=== PATIENT | female | born 1945 | race Caucasian/White ===

== ENCOUNTER → 2016-08-14 | Outpatient (REF) | payer MEDICARE, OTHER ==
[~2016-08-14] MED LIST: /ATOR40TA OR; /GLYB5TA OR; /TIOT18INH INH; ACET65TA OR; ACTO30TA OR; ALTA10CA OR; ASPI325T OR; CLAR5CHW OR; DUONSOL IN; FERR325T OR; FURO40TA2 OR; FURO80TA2 OR; GLYB2.5T6 OR; GREEN TEA PO; KLOR10TA OR; LEVA500T OR; LIPI80TA OR; LOPR50TA OR; MULTIVIT PO; PLAV75TA2 OR; PRED10TA2 OR; PRED20TA OR; SERT50TA2 OR; [UNRECOGNIZED DRUG - CODE] EXT; januvia PO; restful legs SL
[2016-08-14 18:32] LABS: ALBUMIN 3.4 GM/DL (3.2-5.2); ALBUMIN/GLOBULIN RATIO 1.06 (1.00-1.93); BILIRUBIN,TOTAL 0.2 MG/DL (0.2-1.0); CALCIUM LEVEL 8.8 MG/DL (8.8-10.2); CREATININE FOR GFR 1.58 MG/DL (0.55-1.02); GLOMERULAR FILTRATION RATE 34.1 (>39); POTASSIUM SERUM 4.3 MEQ/L (3.5-5.1); TOTAL PROTEIN 6.6 GM/DL (6.4-8.2)
== END ==
LOC: M SFHCCLAY 10:26
PROVIDERS: ATTEND Family Medicine
DX: E11.9 Type 2 diabetes mellitus without complications (principal)
CPT/HCPCS: 80053; 83036; 90670; G0009; G0463

== ENCOUNTER → 2016-11-09 | Outpatient (CLI) | payer MEDICARE, BC ==
--- NOTE | 2016-11-09 11:30 | REPMRS ---
Patient History The patient states she has not had a clinical breast exam in over a year. Patient is postmenopausal and has history of colorectal cancer at age 56. Family history of colorectal cancer in sister at age 50 or over and colorectal cancer in mother at age 50 or over. Digital Woman Screen Mammo: November 09, 2016 - Exam #: [id number] Bilateral CC and MLO view(s) were taken. Technologist: Anum Nassar, Technologist Prior study comparison: November 08, 2015, digital woman screen mammo performed at [facility] to [facility]. October 10, 2014, digital woman screen mammo performed at [facility] to [facility]. FINDINGS: There are scattered fibroglandular densities. There has been no change in the appearance of the mammogram from the prior studies. There is a mild amount of residual fibroglandular tissue which is fairly symmetric. There is no interval development of dominant mass, architectural distortion, or clustered microcalcification suggestive of malignancy. ASSESSMENT: BI-RADS/ACR category 1 mammogram. Negative. Recommendation Routine screening mammogram in 1 year (for women over age 40). This mammogram was interpreted with the aid of an FDA-approved computer-aided dectection system. Electronically Signed By: Víctor Rios MD 11/09/16 [id number]
== END ==
LOC: M WHC 09:51
PROVIDERS: ATTEND Family Medicine
DX: Z12.31 Encounter for screening mammogram for malignant neoplasm of breast (principal)

== ENCOUNTER → 2017-03-02 | Outpatient (REF) | payer MEDICARE, OTHER ==
[2017-03-02 18:04] LABS: ALBUMIN 3.1 GM/DL (3.2-5.2); ALBUMIN/GLOBULIN RATIO 0.79 (1.00-1.93); BILIRUBIN,TOTAL 0.2 MG/DL (0.2-1.0); CALCIUM LEVEL 9.1 MG/DL (8.8-10.2); CREATININE FOR GFR 1.92 MG/DL (0.55-1.02); GLOMERULAR FILTRATION RATE 27.2 (>39); POTASSIUM SERUM 4.1 MEQ/L (3.5-5.1)
[2017-03-02 19:02] LABS: BASO # 0.1 10^3/uL (0.0-0.2); BASO % 0.7 % (0.0-1.0); EOS # 0.1 10^3/uL (0.0-0.50); EOS % 1.1 % (0.0-3.0); IMMATURE GRANULOCYTE % 0.4 % (0-0); LYMPH # 1.7 10^3/uL (1.5-4.5); MEAN CORPUSCULAR HEMOGLOBIN 30.1 pg (27.0-33.0); MEAN CORPUSCULAR HGB CONC 29.1 g/dl (32.0-36.5); MEAN CORPUSCULAR VOLUME 103.5 fl (80.0-96.0); MONO # 1.1 10^3/uL (0.0-0.8); MONO % 10.6 % (0.0-5.0); NEUTROPHILS # 7.6 10^3/uL (1.8-7.7); NEUTROPHILS % 71.2 % (36.0-66.0); PLATELET COUNT, AUTOMATED 240 10^3/uL (150-450); RED CELL DISTRIBUTION WIDTH 14.7 % (11.5-14.5); WHITE BLOOD COUNT 10.7 10^3/uL (4.0-10.0)
== END ==
LOC: M SFHCCLAY 13:18
PROVIDERS: ATTEND Family Medicine
DX: E11.9 Type 2 diabetes mellitus without complications (principal); D64.9 Anemia, unspecified; Z23 Encounter for immunization
CPT/HCPCS: 80053; 80061; 83036; 83540; 85025; 90662; G0008; G0463

== ENCOUNTER → 2017-07-09 | Outpatient (REF) | payer MEDICARE, OTHER ==
[2017-07-09 16:51] LABS: BASO # 0.1 10^3/uL (0.0-0.2); BASO % 0.8 % (0.0-1.0); EOS # 0.2 10^3/uL (0.0-0.50); EOS % 1.8 % (0.0-3.0); HEMATOCRIT 31.4 % (36.0-47.0); HEMOGLOBIN 9.4 g/dl (12.0-15.5); IMMATURE GRANULOCYTE % 0.3 % (0-3.0); LYMPH # 1.1 10^3/uL (1.5-4.5); LYMPH % 11.6 % (24.0-44.0); MEAN CORPUSCULAR HEMOGLOBIN 32.2 pg (27.0-33.0); MEAN CORPUSCULAR HGB CONC 29.9 g/dl (32.0-36.5); MEAN CORPUSCULAR VOLUME 107.5 fl (80.0-96.0); MONO # 0.8 10^3/uL (0.0-0.8); MONO % 8.6 % (0.0-5.0); NEUTROPHILS % 76.9 % (36.0-66.0); PLATELET COUNT, AUTOMATED 211 10^3/uL (150-450); RED BLOOD COUNT 2.92 10^6/uL (4.00-5.40); RED CELL DISTRIBUTION WIDTH 13.9 % (11.5-14.5); WHITE BLOOD COUNT 9.1 10^3/uL (4.0-10.0)
[2017-07-09 17:16] LABS: ANION GAP 5 MEQ/L (8-16); BLOOD UREA NITROGEN 35 MG/DL (7-18); CALCIUM LEVEL 8.9 MG/DL (8.8-10.2); CARBON DIOXIDE LEVEL 35 MEQ/L (21-32); CHLORIDE LEVEL 106 MEQ/L (98-107); GLOMERULAR FILTRATION RATE 25.9 (>39); GLUCOSE, FASTING 218 MG/DL (70-100); IRON (FE) 59 UG/DL (50-170); POTASSIUM SERUM 4.6 MEQ/L (3.5-5.1); SODIUM LEVEL 146 MEQ/L (136-145)
[2017-07-09 17:40] LABS: ESTIMATED AVERAGE GLUCOSE 85 MG/DL (60-110); HEMOGLOBIN A1c 4.6 %
== END ==
LOC: M SFHCCLAY 10:14
DX: E11.22 Type 2 diabetes mellitus with diabetic chronic kidney disease (principal); N18.3 Chronic kidney disease, stage 3 (moderate); D64.9 Anemia, unspecified
CPT/HCPCS: 83540

== ENCOUNTER → 2017-08-16 | Outpatient (REF) | payer MEDICARE, OTHER ==
[2017-08-16 14:34] LABS: FERRITIN 26 NG/ML (8-252); IRON (FE) 66 UG/DL (50-170); PERCENT SATURATION 18.2 % (13.2-45.0); TOTAL IRON BINDING CAPACITY 362 UG/DL (250-450)
== END ==
LOC: M LAB REF 13:17
DX: N18.9 Chronic kidney disease, unspecified (principal); D63.1 Anemia in chronic kidney disease
CPT/HCPCS: 83550

== ENCOUNTER → 2017-10-07 | Outpatient (REF) | payer MEDICARE, OTHER ==
[2017-10-07 11:57] LABS: ANION GAP 6 MEQ/L (8-16); BLOOD UREA NITROGEN 27 MG/DL (7-18); CALCIUM LEVEL 8.7 MG/DL (8.8-10.2); CARBON DIOXIDE LEVEL 38 MEQ/L (21-32); CHLORIDE LEVEL 101 MEQ/L (98-107); CREATININE FOR GFR 1.89 MG/DL (0.55-1.30); GLOMERULAR FILTRATION RATE 27.7 (>39); GLUCOSE, FASTING 83 MG/DL (70-100); POTASSIUM SERUM 4.2 MEQ/L (3.5-5.1); SODIUM LEVEL 145 MEQ/L (136-145)
[2017-10-07 12:57] LABS: ESTIMATED AVERAGE GLUCOSE 97 MG/DL (60-110)
== END ==
LOC: M SFHCCLAY 09:07
DX: E11.9 Type 2 diabetes mellitus without complications (principal)
CPT/HCPCS: 83036

== ENCOUNTER → 2017-11-01 | Outpatient (REF) | payer MEDICARE, OTHER ==
[2017-11-01 19:04] LABS: CREATININE,RANDOM URINE 50.1 MG/DL
[2017-11-01 19:04] LABS: TOTAL PROTEIN,RANDOM URINE 12.1 MG/DL (0.0-12.0)
[2017-11-02 14:26] LABS: FERRITIN 23 NG/ML (8-252); IRON (FE) 58 UG/DL (50-170); PERCENT SATURATION 14.8 % (13.2-45.0); TOTAL IRON BINDING CAPACITY 392 UG/DL (250-450)
== END ==
LOC: M LAB REF 17:04
DX: N18.4 Chronic kidney disease, stage 4 (severe) (principal)
CPT/HCPCS: 83550

== ENCOUNTER → 2017-11-10 | Outpatient (CLI) | payer MEDICARE, BC | LOC: M WHC 12:51 | DX: Z12.31 Encounter for screening mammogram for malignant neoplasm of breast (principal); Z78.0 Asymptomatic menopausal state | CPT/HCPCS: 77067 ==

== ENCOUNTER 2017-11-23 09:04 | Outpatient (CLI) | payer MEDICARE, BC ==
[2017-11-23] MEDS: IRON SUCROSE 25 MG in NS 50 ML IV (09:58)
[2017-11-23] MEDS: IRON SUCROSE 275 MG in NS 250 ML IV (10:00)
== END 2017-11-23 14:30 | disposition home or self-care (01) ==
LOC: M INFU 09:04
DX: D50.9 Iron deficiency anemia, unspecified (principal); Z88.1 Allergy status to other antibiotic agents; Z88.8 Allergy status to other drugs, medicaments and biological substances; Z88.0 Allergy status to penicillin; Z79.82 Long term (current) use of aspirin; Z79.899 Other long term (current) drug therapy; Z79.52 Long term (current) use of systemic steroids; Z79.84 Long term (current) use of oral hypoglycemic drugs
CPT/HCPCS: J1756

== ENCOUNTER → 2018-02-15 | Outpatient (REF) | payer MEDICARE, OTHER ==
[2018-02-16 11:49] LABS: BASO # 0.1 10^3/uL (0.0-0.2); BASO % 0.6 % (0.0-1.0); EOS # 0.1 10^3/uL (0.0-0.50); EOS % 1.2 % (0.0-3.0); HEMATOCRIT 30.6 % (36.0-47.0); HEMOGLOBIN 9.2 g/dl (12.0-15.5); IMMATURE GRANULOCYTE % 0.4 % (0-3.0); LYMPH # 1.5 10^3/uL (1.5-4.5); LYMPH % 18.5 % (24.0-44.0); MEAN CORPUSCULAR HEMOGLOBIN 32.3 pg (27.0-33.0); MEAN CORPUSCULAR HGB CONC 30.1 g/dl (32.0-36.5); MEAN CORPUSCULAR VOLUME 107.4 fl (80.0-96.0); MONO % 12.4 % (0.0-5.0); NEUTROPHILS # 5.5 10^3/uL (1.8-7.7); NEUTROPHILS % 66.9 % (36.0-66.0); PLATELET COUNT, AUTOMATED 198 10^3/uL (150-450); RED BLOOD COUNT 2.85 10^6/uL (4.00-5.40); RED CELL DISTRIBUTION WIDTH 13.3 % (11.5-14.5); WHITE BLOOD COUNT 8.2 10^3/uL (4.0-10.0)
[2018-02-16 12:11] LABS: ALBUMIN 3.2 GM/DL (3.2-5.2); ALBUMIN/GLOBULIN RATIO 0.97 (1.00-1.93); ALKALINE PHOSPHATASE 101 U/L (45-117); ALT/SGPT 32 U/L (12-78); ANION GAP 5 MEQ/L (8-16); AST/SGOT 32 U/L (7-37); BILIRUBIN,TOTAL 0.2 MG/DL (0.2-1.0); BLOOD UREA NITROGEN 30 MG/DL (7-18); CALCIUM LEVEL 8.9 MG/DL (8.8-10.2); CARBON DIOXIDE LEVEL 33 MEQ/L (21-32); CHLORIDE LEVEL 106 MEQ/L (98-107); CHOLESTEROL LEVEL 179 MG/DL (<200); CHOLESTEROL RISK RATIO 4.068 (<5); GLUCOSE, FASTING 81 MG/DL (70-100); HDL CHOLESTEROL 44 MG/DL (>40); IRON (FE) 52 UG/DL (50-170); LDL CHOLESTEROL 86 MG/DL (<100); NON-HDL-C 135 MG/DL; POTASSIUM SERUM 4.8 MEQ/L (3.5-5.1); SODIUM LEVEL 144 MEQ/L (136-145); TOTAL PROTEIN 6.5 GM/DL (6.4-8.2); TRIGLYCERIDES LEVEL 246 MG/DL (<150)
[2018-02-16 12:34] LABS: ESTIMATED AVERAGE GLUCOSE 105 MG/DL (60-110); HEMOGLOBIN A1c 5.3 %
== END ==
LOC: M SFHCCLAY 15:24
DX: E11.9 Type 2 diabetes mellitus without complications (principal); N18.3 Chronic kidney disease, stage 3 (moderate); D64.9 Anemia, unspecified; Z23 Encounter for immunization
CPT/HCPCS: 83540

== ENCOUNTER → 2018-03-08 | Outpatient (REF) | payer MEDICARE, OTHER ==
[2018-03-08 19:19] LABS: FERRITIN 13 NG/ML (8-252); IRON (FE) 64 UG/DL (50-170); PERCENT SATURATION 16.2 % (13.2-45.0); TOTAL IRON BINDING CAPACITY 395 UG/DL (250-450)
== END ==
LOC: M LAB REF 18:04
DX: N18.9 Chronic kidney disease, unspecified (principal); D63.1 Anemia in chronic kidney disease
CPT/HCPCS: 83550

== ENCOUNTER → 2018-06-14 | Outpatient (REF) | payer MEDICARE, OTHER ==
[~2018-06-14] MED LIST changes: -/ATOR40TA OR; -/GLYB5TA OR; -/TIOT18INH INH; +ADVA230A INH; +AMLO5TAB6 PO; +ASPI-1 PO; +ASPI1TAB20 PO; +ATOR80TA59 PO; +FERR1TAB8 PO; +GLIM4TAB PO; +GLYB1TAB29 OR; +JANU25TA PO; +LASI80TA3 PO; +LIPI1TAB2 OR; +LORA-243 PO; +METO50TA7 PO; +PANT40TA3 PO; +SERO1TAB3 PO; +SERT-138 PO; +SPIR1CAP INH; +TYLE650T35 PO; +VENL75CA47 PO; +VITMTA PO
[2018-06-15 12:11] LABS: CALCIUM LEVEL 8.6 MG/DL (8.8-10.2); CREATININE FOR GFR 1.96 MG/DL (0.55-1.30); GLOMERULAR FILTRATION RATE 26.5 (>39); POTASSIUM SERUM 5.6 MEQ/L (3.5-5.1)
== END ==
LOC: EDBD → M SFHCCLAY 16:11
PROVIDERS: ATTEND Family Medicine
DX: E11.9 Type 2 diabetes mellitus without complications (principal)
CPT/HCPCS: 36415; 80048; G0463

== ENCOUNTER 2018-07-08 13:44 | Inpatient (IN) | payer MEDICARE, BC, OTHER ==
[~2018-07-08] VITALS: Ht 157.5 cm; Wt 84.2 kg
[2018-07-08] VITALS (7 sets, daily range): BP systolic 90–117; BP diastolic 52–70; O2SAT 88–89
[~2018-07-08 13:44] MED LIST changes: -ADVA230A INH; -AMLO5TAB6 PO; -ASPI-1 PO; -ASPI1TAB20 PO; -ATOR80TA59 PO; -FERR1TAB8 PO; -GLIM4TAB PO; -JANU25TA PO; -LASI80TA3 PO; -LORA-243 PO; -METO50TA7 PO; -PANT40TA3 PO; -SERO1TAB3 PO; -SERT-138 PO; -TYLE650T35 PO; -VENL75CA47 PO; -VITMTA PO
[2018-07-08] MEDS ORDERED: ACETAMINOPHEN TAB 650MG DOSE (2X325MG) PO PRN (16:45)
[2018-07-08] MEDS ORDERED: LORA-243 PO (17:08)
[2018-07-08] MEDS ORDERED: GLIM4TAB PO (17:08)
[2018-07-08] MEDS ORDERED: VITMTA PO (17:08)
[2018-07-08] MEDS ORDERED: METO50TA7 PO (17:08)
[2018-07-08] MEDS ORDERED: LASI80TA3 PO (17:08)
[2018-07-08] MEDS ORDERED: ADVA230A INH (17:08)
[2018-07-08] MEDS ORDERED: SERT-138 PO (17:08)
[2018-07-08] MEDS ORDERED: JANU25TA PO (17:08)
[2018-07-08] MEDS ORDERED: SPIR1CAP INH (17:08)
[2018-07-08] MEDS ORDERED: TYLE650T35 PO (17:08)
[2018-07-08] MEDS ORDERED: FERR1TAB8 PO (17:08)
[2018-07-08] MEDS ORDERED: ATOR80TA59 PO (17:08)
[2018-07-08] MEDS ORDERED: ASPI-1 PO (17:08)
[2018-07-08] MEDS ORDERED: ASPI1TAB20 PO (17:08)
[2018-07-08] MEDS ORDERED: VENL75CA47 PO (17:09)
[2018-07-08 17:14] LABS: HEMATOCRIT 27.9 % (36.0-47.0); MEAN CORPUSCULAR HEMOGLOBIN 29.3 pg (27.0-33.0); MEAN CORPUSCULAR HGB CONC 28.7 g/dl (32.0-36.5); MEAN CORPUSCULAR VOLUME 102.2 fl (80.0-96.0); PLATELET COUNT, AUTOMATED 176 10^3/uL (150-450); RED BLOOD COUNT 2.73 10^6/uL (4.00-5.40); WHITE BLOOD COUNT 5.8 10^3/uL (4.0-10.0)
[2018-07-08] MEDS ORDERED: SERO1TAB3 PO (17:18)
[2018-07-08] MEDS ORDERED: PANT40TA3 PO (17:18)
[2018-07-08] MEDS ORDERED: AMLO5TAB6 PO (17:18)
[2018-07-08 17:36] LABS: ALBUMIN 2.7 GM/DL (3.2-5.2); BILIRUBIN,TOTAL 0.4 MG/DL (0.2-1.0); CALCIUM LEVEL 9.4 MG/DL (8.8-10.2); CREATININE FOR GFR 1.22 MG/DL (0.55-1.30); GLOMERULAR FILTRATION RATE 45.7 (>39); POTASSIUM SERUM 4.6 MEQ/L (3.5-5.1); TOTAL PROTEIN 6.2 GM/DL (6.4-8.2)
--- NOTE | 2018-07-08 18:01 | HPEPDOC ---
[facility] Medical History & Physical Date of Admission Jul 08, 2018 History and Physical CHIEF COMPLAINT: [ACUTE ON CHRONIC HYPOXIC AND HYPERCAPNIC RESP FAILURE ] HISTORY OF PRESENT ILLNESS: This is 89 yo female who was transferred from [facility] on BIPAP for acute on chronic hypoxic and hypercapnic resp failure. Hospital prior to being transferred - Patient was initially admitted to [facility] on 06/18-06/27 for symptomatic anemia with hgb of 4.9. She was transfused 2 units of prbc. She underwent EGD and colonoscopy and was found to have atrophic gastritis and multiple polyps which were removed. She improved clinically and was admitted at [place] for [facility] on 06/27/18. She again had symptomatic anemia and her Hgb dropped from 10.4-8.3 and she was having black tarry stool. She was sent back to [facility] where she again underwent egd and colonoscopy and another polyp was found and excised on 07/04/18. She had marybeth and potassium imbalances which were corrected accordingly. She was discharged to discharged to [facility] and while there staff had difficulty obtaining an O2 sat, she was lethargic and an ABG was performed and resulted as ph 7.26/pco2 96.4/PAo2 75. Patient was placed on BIPAP and at 12/6 and fio2 of 40%, and BP dropped to 90/51. Given developing complications, patient was transferred to [facility] for further mgt. ROS - all 14 point review of system is negative except for whats listed in HPI PAST MEDICAL HISTORY: CANDIDO 2/2 chronic blood loss recent GIB multiple polyps s/p polypectomy COPD with chronic hypoxemia on 4L nc at home DM2 colon ca s/p resection over 10yrs ago HTN HLD CAD LINDSAY on CPAP but noncompliant ckd obesity atrophic gastritis allergic rhinnitis depression and anxiety Heart murmur scarlet fever RH fever TB s/p treatment chronic headaches PAST SURGICAL HISTORY: EGD colonscopy colon resection cholecystectomy appendectomy umbilical hernia repair b/l cataract surgery SOCIAL HISTORY: Patient is a and lives alone 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 quit 12yrs ago denied etoh or elicit drug use FAMILY HISTORY: mother at age 68yrs from colon ca, also had copd father in his 60s from MVA, also had copd one sister in her 50s from colon cancer one sister from CAD , also had copd ALLERGIES: Please see below. HOME MEDICATIONS: Please see below. Physical exam Gen: NAD, healthy appearing , on bipap HEENT: normocephalic, atraumatic, no discharge from ears or nose, no oropharyngeal erythema or exudate, neck is supple, no lymphadenopathy, trachea midline CVS: RRR, normal S1n S2, no murmur, rubs, or gallops, no edema, no jvd Resp: LCTAB, no rhonchi, wheezes or crackles, poor air movement Abd : soft nontender, normal bowel sounds, no rebound tenderness or guarding MSK: no swelling, full range of motion, strength 5/5 Neuro: AOAx3- poor memory, no confusion, no focal deficit Psych: normal mood and affect, good judgment LABORATORY DATA: See below. some pending IMAGING: cxr pending MICROBIOLOGY: Please see below. ASSESSMENT AND PLAN Acute on chronic hypoxic and hypercapnic resp failure COPD with chronic hypoxemia on 4L nc at home Admit to ICU BIPAP per pulm keep O2 sat between 88-92% serial abg Pulm consult ordered lab results coming in f/u cxr CANDIDO 2/2 GIB monitor H and H q12h monitor stool for bleed transfuse if patient is bleeding and symptomatic or hgb becomes <7 f/u anemia w/u type and screen ordered DM2 last hba1c was 5.4 % monitor f/s ISS hypoglycemic protocol HTN hold bp meds for now and monitor HLD c/w statin atrophic gastritis -PPI -protonix 40mg bid CAD - stable no complaint monitor off aspirin for now depression and anxiety not in depressed mood. very pleasant not suicidal c/w meds DVT ppx - scd Full code, has HCP dispo- pending clinical improvement Home Medications Scheduled Amlodipine Besylate (Amlodipine Besylate) 5 Mg Tab, 5 MG PO DAILY STARTED AT [facility] Aspirin (Aspirin) 325 Mg Tab, 162.5 MG PO DAILY Atorvastatin Calcium (Atorvastatin Calcium) 80 Mg Tab, 80 MG PO DAILY Ferrous Sulfate (Ferrous Sulfate) 325 Mg Tab, 162.5 MG PO DAILY Furosemide (Lasix) 80 Mg Tab, 80 MG PO DAILY Loratadine (Loratadine) 10 Mg Tab, 10 MG PO DAILY Metoprolol Tartrate (Metoprolol Tartrate) 50 Mg Tab, 50 MG PO BID Multivitamins *[facility] STOCKED* (Thera M Plus *[facility] STOCKED*) 1 Tab Tab, 1 TAB PO DAILY Pantoprazole Sodium (Pantoprazole Sodium) 40 Mg Tab, 40 MG PO BID STARTED AT [facility] Quetiapine Fumerate (Seroquel) 25 Mg Tab, 25 MG PO BID STARTED AT [facility] Salmeterol/Fluticasone (Advair Hfa 230-21 Mcg/Act) 1 Aer Aer, 2 PUFF INH BID Sertraline HCl (Sertraline HCl) 100 Mg Tab, 100 MG PO DAILY Sitagliptin Phosphate (Januvia) 25 Mg Tab, 25 MG PO DAILY Tiotropium [place] Monohydrate (Spiriva Handihaler) 18 Mcg Cap, 1 INHALATION INH DAILY Venlafaxine HCl (Venlafaxine HCl ER) 75 Mg Capcr, 75 MG PO DAILY Scheduled PRN Acetaminophen (Tylenol 8 Hour Arthritis) 650 Mg Tab, 650 MG PO Q8H PRN for PAIN Allergies Coded Allergies: Penicillins (Unverified Allergy, Unknown, SWELLING, 07/08/18) erythromycin base (Unverified Allergy, Unknown, 07/08/18) metformin (Unverified Allergy, Unknown, 07/08/18) QUINTIN HERNANDEZ MD Jul 08, 2018 17:43
[2018-07-08 18:09] LABS: ABG BASE EXCESS 11.7 (-2.0-2.0); ABG HCO3 38.8 MEQ/L (22.0-26.0); ABG O2 SATURATION 93.5 % (95.0-99.0); ABG PARTIAL PRESSURE O2 66.8 mmHg (75.0-100.0); ABG STANDARD HCO3 35.4 MEQ/L (22.0-26.0); ABG TOTAL CO2 40.9 MEQ/L (23.0-31.0); ABG pH (ARTERIAL) 7.372 UNITS (7.350-7.450)
[2018-07-08 18:10] LABS: ABG PARTIAL PRESSURE CO2 68.4 mmHg (35.0-45.0)
--- NOTE | 2018-07-08 18:13 | REP ---
Clinical: Hypoxia. Technique: Portable semiupright AP chest. Comparison: 11/06/2016. Findings: Minimal bibasilar atelectasis and left lower lobe/retrocardiac consolidation appreciated. No definite effusion. No pneumothorax. Cardiac silhouette is normal. Skeletal structures intact. Impression: Left lower lobe consolidation and basilar atelectasis. Electronically Signed by Kenneth Davis MD 07/08/2018 06:05 P
[2018-07-08 18:44] LABS: FERRITIN 49 NG/ML (8-252); IRON (FE) 46 UG/DL (50-170); PERCENT SATURATION 14.2 % (13.2-45.0); TOTAL IRON BINDING CAPACITY 324 UG/DL (250-450)
[2018-07-08] MEDS ORDERED: FUROSEMIDE 20 MG/2 ML VIAL (J1940) IV ONE (18:45)
[2018-07-08] MEDS ORDERED: LevoFLOXacin IV 500 MG in APPROPRIATE DILUENT 1 EA IV ONE (18:45)
[2018-07-08 18:51] LABS: FOLATE 21.1 NG/ML (>5.4); VITAMIN B12 LEVEL 559 PG/ML (247-911)
[2018-07-08 19:19] LABS: CPK CREATINE PHOSPHOKINASE 20 U/L (26-192); NT-PRO BNP 1594 PG/ML (<450); TROPONIN I < 0.02 NG/ML (< 0.10)
--- NOTE | 2018-07-08 20:01 | REP ---
Clinical: Bilateral lower extremity edema . Technique: Rios scale and color Doppler evaluation using linear high frequency transducer. Findings: Ultrasound examination of the right and left lower extremity deep venous structures from the common femoral vein to the popliteal vein demonstrates normal compressibility flow and wave patterns in response to respiration and augmentation. There is no evidence for deep venous thrombosis. Impression: No evidence for deep venous thrombosis. Electronically Signed by Kenneth Davis MD 07/08/2018 07:52 P
--- NOTE | 2018-07-08 20:27 | CR ---
DATE OF CONSULTATION: 07/08/2018 CRITICAL CARE CONSULT The patient is a 73-year-old female with a past medical history of chronic obstructive pulmonary disease (COPD), obstructive sleep apnea (LINDSAY), noncompliant at home with continuous positive airway pressure (CPAP), history of chronic hypoxemic respiratory failure - on nasal cannula oxygen 3-4 liters per minute, history of diabetes, history of congestive heart failure (CHF), reportedly diastolic CHF, hypertension, hyperlipidemia, depression, chronic kidney disease, recent history of gastrointestinal (GI) bleed, who presented with shortness of breath and lethargy. The patient had initially been hospitalized in [facility] with an acute GI bleed in the middle of June. Her hemoglobin on admission was 4.9. At that time, she had been symptomatic with her anemia with shortness of breath and dizziness. She received four units of packed red blood cells then. She had esophagogastroduodenoscopy (EGD) and colonoscopy, was noted to have atrophic gastritis as well as multiple colon polyps which were excised. She improved and was discharged to [facility] for subacute rehab. While there she had noted to have decreasing hemoglobin as well as some black tarry stools. She had also felt more fatigued and short of breath. She was given additional IV fluids for some acute kidney injury (MENG) and hyperkalemia. The patient was readmitted on 07/04/2018 for a recurrent GI bleed. She had a repeat colonoscopy and removal of two more polyps, as well as with an additional PRBC transfusion. During all of this, patient had reported increasing shortness of breath as well as some increasing lower extremity edema. She had no further bleeding and her hemoglobin had improved, and she was transferred back to [facility] on 07/07/2018. While there, she had continued to report some shortness of breath and was noted to be more lethargic. The patient also was noted to be more confused at times from previous. She had an ABG done there which showed evidence of acute on chronic hypercarbic respiratory failure. She was started on bilevel positive airway pressure (BiPAP) at [facility] and transferred to [facility] for further evaluation. She had also noted to have an episode of hypotension and was given additional IV fluids at that time. Her hemoglobin, however, has remained stable on repeat labs. Here in the intensive care unit (ICU), patient reports her breathing has significantly improved. She denies having any significant cough. No chest pain. She denies any increasing wheezing. She does note some increased shortness of breath; however, this has improved since being on BiPAP. She does report a history of chronic lower extremity edema, which she feels has worsened in the past few days. She denies any fevers or chills. No abdominal pain. No nausea or vomiting. PAST MEDICAL HISTORY: Recent GI bleed. History of colon cancer - status post partial resection more than 10 years ago. History of COPD with chronic hypoxemic respiratory failure - on nasal cannula oxygen supplementation. History of chronic hypercarbic respiratory failure. Obstructive sleep apnea (LINDSAY), noncompliant with CPAP. Chronic kidney disease. Diabetes. Coronary artery disease. Congestive heart failure with diastolic dysfunction. Hypertension. Hyperlipidemia. Depression. History of rheumatic fever. Scarlet fever. History of tuberculosis (TB), status post treatment. PAST SURGICAL HISTORY: Tonsillectomy. Cholecystectomy. Multiple colonoscopies. Partial colon resection. Appendectomy. Umbilical hernia repair. Bilateral cataract surgery. FAMILY HISTORY: Mother with a history of colon cancer and COPD. Father with a history of COPD. Sister with a history of colon cancer and another sister with a history of CAD. SOCIAL HISTORY: The patient is a former smoker of approximately two packs a day for more than 50 years, had quit approximately 12 years ago. 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 ALLERGIES: To PENICILLIN, ERYTHROMYCIN and METFORMIN. HOME MEDICATIONS: - Januvia - amlodipine - atorvastatin - iron sulfate - loratadine - multivitamin - sertraline - Spiriva - Advair - venlafaxine - Xopenex as needed - metoprolol - pantoprazole - Seroquel - Tylenol - Maalox as needed PHYSICAL EXAMINATION: Vital signs: Temperature afebrile, pulse 93, respiratory rate 23, blood pressure 97/70, oxygen saturation of 93% on 4 liters nasal cannula oxygen. General: The patient is an obese female lying in bed in no apparent distress, is able to speak in complete sentences and answering appropriately. HEENT: Normocephalic, atraumatic. No palpable adenopathy. Trachea is midline. Her oral mucous membranes are dry. Cardiovascular: She is regular rate and rhythm. Normal S1, S2, faint murmur auscultated. Pulmonary: Diminished breath sounds bilaterally with some crackles at the bases. No rhonchi or wheezing noted. Abdomen: Obese, soft, nontender, nondistended. Unable to appreciate any hepatosplenomegaly due to body habitus. Extremities: There is+1 pitting edema in the bilateral lower extremities. LABORATORY DATA: WBC is 5.8, hemoglobin is 8.0, platelet 176. Chemistry: Sodium is 145, potassium 4.6, chloride 105, bicarbonate 38, BUN 24, creatinine 1.22, glucose is 126, AST, ALT normal, albumin 2.7. ABG repeat showed a pH of 7.372, pCO2 of 68.4, pO2 of 66.8; this is on 35% FiO2 on BiPAP. IMAGING: Chest x-ray showed some increased pulmonary vascular congestion with some atelectasis at the bases and a possible left retrocardiac infiltrate versus atelectasis. ASSESSMENT/PLAN: Mrs. Rios is a 73-year-old female with a past medical history of LINDSAY, COPD with chronic hypoxemic and hypercapnic respiratory failure - on 3 to 4 liters nasal cannula oxygen supplementation, chronic kidney disease, diabetes, depression, hypertension, coronary artery disease, CHF, recent GI bleed, status post colonoscopies, EGD with polypectomy, who is here with increasing shortness of breath and lethargy. The patient had recently been admitted at [facility] with two admissions for recurrent GI bleeds. She was transfused with PRBC as well as receiving IV fluids during those admissions. She was discharged back to subacute rehab and had been noted to be having increasing shortness of breath and lethargy and altered mental status. She had ABG which showed acute on chronic hypercarbic respiratory failure, as well as worsening of her chronic hypoxemic respiratory failure. She had denied any coughing. No fevers or chills. She had just been noticing increasing shortness of breath and some lower extremity edema in the past few days. She was placed on BiPAP and a repeat ABG shows improvement with compensated respiratory acidosis at this time. Patient is more alert and awake and reports her shortness of breath has improved. She denies any chest pain. She has no wheezing, no coughing currently. She has no leukocytosis on labs. She does have some crackles bilaterally. Her chest x-ray shows a possible retrocardiac infiltrate versus atelectasis and some mildly increased pulmonary vascular markings. Suspect that patient may have acute CHF exacerbation given her multiple transfusions and IV fluid hydration recently. She does not have any significant wheezing currently. No coughing. No increased mucus production to suggest COPD exacerbation, and while there is an infiltrate on her chest x-ray, she has no other signs of pneumonia, including leukocytosis, fevers or cough currently. Some of this may be atelectasis secondary to her decreased mobility and hospitalization. She did not have any calf tenderness on exam, and her legs do not appear unequally swollen. However, with the edema and her decreased mobility, as well as being on sequential compression devices (SCDs), given her acute GI bleed, she is at some risk for a DVT. Given her chronic kidney disease, would hold off on a CT angiogram at this time as there are other possible explanations for her hypoxemia and acute on chronic hypercarbic respiratory failure. Would give gentle diuresis with 20 mg IV Lasix and place a Farooq and monitor her intake and output. If her blood pressure tolerates, would continue Lasix for diuresis and increase the dose. Would hold her antihypertensive medications at this time. Will check a BNP and cardiac enzymes, and consider repeating an echocardiogram if she has not had any recent echocardiograms done. Continue with BiPAP on the current settings of 14 over 6 with FiO2 of 35%. Previous sleep study showed that she was on a CPAP of 8 cm with nasal cannula oxygen bleed in. As she is improving, can likely wean her from BiPAP to CPAP; however, will continue with BiPAP for now. Did discuss with the patient that her noncompliance with CPAP can contribute to her worsening of CHF and exacerbation. Continue nasal cannula supplementation with 3 to 4 liters per minute with a goal oxygen saturation of 88-92%. Can have the patient off of BiPAP to eat and then would place her back on BiPAP at night and with naps. Continue with her home inhalers with Advair and Spiriva. Continue with Xopenex as needed. Will check a lower extremity duplex. If the patient continues to be persistently hypoxemic despite diuresis, would get a CT angiogram versus a VQ study for further evaluation if her duplex is negative. Continue with SCDs for now and continue to monitor her hemoglobin and hematocrit. She has not had any reported black tarry stools recently, and her last hemoglobin has been stable. The patient is FULL CODE. Total critical care time spent not including any procedures: 1 hour and 50 minutes. MTDD
[2018-07-08] MEDS: ADVAIR HFA 230/21MCG INHALER INH SCH (20:40)
[2018-07-08] MEDS: PANTOPRAZOLE 40MG TAB (PROTONIX) PO SCH (21:37)
[2018-07-08] MEDS: DOCUSATE SODIUM 100 MG CAP PO SCH (21:37)
[2018-07-08] MEDS: QUEtiapine FUMARATE 25 MG TAB PO SCH (21:38)
[2018-07-08] MEDS ORDERED: FUROSEMIDE 20 MG TAB PO ONE (23:30)
[2018-07-09] VITALS (10 sets, daily range): BP systolic 117–139; BP diastolic 54–71; O2SAT 95–97
[2018-07-09 04:27] LABS: HEMATOCRIT 27.1 % (36.0-47.0); HEMOGLOBIN 7.7 g/dl (12.0-15.5); MEAN CORPUSCULAR HEMOGLOBIN 29.4 pg (27.0-33.0); MEAN CORPUSCULAR HGB CONC 28.4 g/dl (32.0-36.5); MEAN CORPUSCULAR VOLUME 103.4 fl (80.0-96.0); PLATELET COUNT, AUTOMATED 153 10^3/uL (150-450); RED BLOOD COUNT 2.62 10^6/uL (4.00-5.40); WHITE BLOOD COUNT 4.7 10^3/uL (4.0-10.0)
[2018-07-09 04:55] LABS: CALCIUM LEVEL 8.9 MG/DL (8.8-10.2); CREATININE FOR GFR 1.35 MG/DL (0.55-1.30); GLOMERULAR FILTRATION RATE 40.7 (>39); MAGNESIUM LEVEL 1.8 MG/DL (1.8-2.4); POTASSIUM SERUM 4.1 MEQ/L (3.5-5.1)
[2018-07-09] MEDS: ADVAIR HFA 230/21MCG INHALER INH SCH ×2 (08:01→21:11)
[2018-07-09] MEDS: TIOTROPIUM INHALER/CAPSULE (SPIRIVA) INH SCH (08:01)
[2018-07-09] MEDS: FERROUS SULFATE 325MG TAB PO SCH (08:38)
[2018-07-09] MEDS: DOCUSATE SODIUM 100 MG CAP PO SCH ×2 (08:39→20:57)
[2018-07-09] MEDS: QUEtiapine FUMARATE 25 MG TAB PO SCH ×2 (08:39→20:57)
[2018-07-09] MEDS: VENLAFAXINE **XR** 75MG CAPSULE PO SCH (08:39)
[2018-07-09] MEDS: MULTIVITAMINS/MINERALS THERAP 1 TAB PO SCH (08:39)
[2018-07-09] MEDS: ATORVASTATIN 20 MG TAB PO SCH (08:39)
[2018-07-09] MEDS: LORATADINE 10 MG TAB PO SCH (08:39)
[2018-07-09] MEDS: PANTOPRAZOLE 40MG TAB (PROTONIX) PO SCH ×2 (08:39→20:57)
[2018-07-09] MEDS: SERTRALINE 100 MG TAB PO SCH (08:39)
[2018-07-09] MEDS ORDERED: FUROSEMIDE 40 MG/4 ML VIAL (J1940) IV ONE (08:45)
[2018-07-09] MEDS: LEVALBUTEROL HFA 45MCG/ACT 15 GM INHALER INH SCH ×3 (12:08→20:00)
--- NOTE | 2018-07-09 13:07 | CCN ---
DATE: 07/09/2018 Patient was seen and examined this morning during rounds. patient was on bilevel positive airway pressure (BiPAP) overnight. This morning was taken off of BiPAP to nasal cannula oxygen. She reports her breathing has significantly improved since admission to the hospital. She denies any chest pain. She denies any wheezing. No significant coughing. She did have one episode of cough where she coughed up a glob of some green-yellow mucus. She has not had any abdominal pain. No nausea or vomiting. PHYSICAL EXAMINATION: Temperature 98.3, pulse 82, respirations 25, blood pressure 117/57, oxygen saturation 96% on the BiPAP at 45% FiO2. Ins 460, outs 525 mL. General: Patient is an obese female, who is lying in bed, in no apparent distress. Is able to speak in complete sentences. HEENT: She is normocephalic, atraumatic. Has no palpable cervical adenopathy. Trachea is midline. Mucous membranes are moist. Cardiovascular: Regular rate and rhythm. Normal S1, S2. Systolic murmur auscultated loudest in the right upper sternal border. Pulmonary: She has some diminished breath sounds bilaterally with occasional expiratory wheeze and few crackles at bases. Abdomen: She is obese, soft, nontender, nondistended. Unable to appreciate any hepatosplenomegaly due to body habitus. Extremities: There is no significant lower extremity edema in the bilateral extremities, improved from previously. LABORATORY DATA: WBC 4.7, hemoglobin 7.7, platelets 153. Chemistry: Sodium is 144, potassium 4.1, chloride 104, bicarbonate 39, BUN 22, creatinine 1.35, glucose of 136. BNP was 1594. Troponin initially was negative. RSV panel was negative. Lower extremity duplex was negative for deep venous thrombosis (DVT) in the bilateral lower extremities. ASSESSMENT AND PLAN: Ms. Rios is a 73-year female with past medical history of obstructive sleep apnea (LINDSAY) noncompliant on continuous positive airway pressure (CPAP) at home, history of chronic obstructive pulmonary disease with chronic hypoxemic and hypercapnic respiratory failure on 3-4 liters nasal cannula oxygen supplementation, chronic kidney disease (CKD), diabetes, depression, hypertension, CAD, congestive heart failure (CHF), recent gastrointestinal (GI) bleed status post colonoscopies and esophagogastroduodenoscopy (EGD) with polypectomies at [facility], who presented with increasing shortness of breath and lethargy. Patient was found to have acute on chronic hypercarbic respiratory failure as well as worsening of her chronic hypoxemic respiratory failure. She had complained of increasing shortness of breath and lower extremity edema in the past few days. She had previously been admitted at [facility] for recurrent GI bleeds and had multiple transfusions of packed red blood cells (PRBC) as well as IV fluid hydration. Patient was placed on BiPAP and her repeat arterial blood gas (ABG) showed improvement with a compensated respiratory acidosis. She was given a dose of Lasix 20 mg by mouth yesterday as her blood pressures have been borderline low. Overnight her blood pressure had remained stable and she has not been significantly negative. Her brain natriuretic peptide (BNP) was elevated and on x-ray she did have some mildly increased pulmonary vascular markings as well as a possible retrocardiac infiltrate versus atelectasis. Patient likely with acute on chronic hypercarbic and hypoxemic respiratory failure in the setting of fluid overload from her recent transfusions and IV fluid hydration. She did not have any significant wheezing initially or coughing. No leukocytosis to suggest pneumonia. She does have some slight wheezing today. However, she denies any significant cough and mucus production. As her blood pressures have improved, will give a dose of Lasix 40 mg IV and continue to monitor her ins and outs. The patient is on fluid restriction. Will change it to 1500 mL. Patient's ABG showed a compensated chronic respiratory acidosis with her chronic hypercarbia likely due to LINDSAY with possible obesity hypoventilation syndrome (OHS) and may also be from COPD if severe. Patient was trialed on her home C- PAP machine however, with 4 liters nasal cannula on her home CPAP she was hypoxemic. Therefore, will have patient on tabletop BiPAP with the current settings of 14/6 and FiO2 of 40%. Patient will need to go home on BiPAP and will likely need a repeat sleep study as an outpatient. Patient did have elevated BNP and does have a murmur on exam. Will followup an echocardiogram to see if she has any significant valvulopathy Continue with nasal cannula supplementation to maintain oxygen saturation of 88-92% Continue with Advair and Spiriva. Will change Xopenex to be standing four times a day. Lower extremity duplex was negative. Will continue to monitor. As the patient is improving would not pursue any further testing with CT angiogram or V/Q study at this time. Continue sequential compressive devices (SCDs). Her hemoglobin and hematocrit had a slight decrease today but likely within lab error. Will continue to monitor. She has not had any report of melena recently. FULL CODE. Total care time spent, not including procedures, approximately 40 minutes. ADILENE
--- NOTE | 2018-07-09 15:45 | IPNPDOC ---
Date Seen The patient was seen on 07/09/18. Progress Note SUBJECTIVE: This is 73 yo female who was transferred from [facility] on BIPAP for acute on chronic hypoxic and hypercapnic resp failure. Patient also has recent GIB (melena) s/p egd and colonoscopy with polypectomy, and drop in her hbg requiring blood transfusions. She has not had any more episodes of GIB since she has been here. Her oxygen requirement has improved and she is on NC saturating as 96%. OBJECTIVE PHYSICAL EXAMINATION: VITAL SIGNS: Please see below. Physical exam Gen: NAD, healthy appearing , HEENT: normocephalic, atraumatic, no discharge from ears or nose, no o ropharyngeal erythema or exudate, neck is supple, no lymphadenopathy, trachea midline CVS: RRR, normal S1n S2, no murmur, rubs, or gallops, +1 edema in lower extremities, no jvd Resp: LCTAB, no rhonchi, wheezes or crackles Abd : soft nontender, normal bowel sounds, no rebound tenderness or guarding MSK: no swelling, full range of motion, strength 5/5 Neuro: AOAx3, no confusion, no focal deficit Psych: normal mood and affect, good judgment LABORATORY DATA, IMAGING STUDIES, MICROBIOLOGY: Please see below.-reviewed Echocardiogram: [pending]. DVT prophylaxis ordered?: [scd ] ASSESSMENT AND PLAN: Acute on chronic hypoxic and hypercapnic resp failure - improved COPD with chronic hypoxemia on 4L nc at home//LINDSAY -noncompliant with cpap monitor in ICU BIPAP per pulm keep O2 sat between 88-92% serial abg Pulm consult appreciated c/w spiriva//advair //levalbuterol ?chf c/w lasix 40mg iv daily f/u echo trop negative probnp elevated CANDIDO 2/2 GIB monitor H and H q12h monitor stool for bleed transfuse if patient is bleeding and symptomatic or hgb becomes <7 f/u anemia w/u keep type and screen active c/w iron supplement DM2 last hba1c was 5.4 % monitor f/s ISS hypoglycemic protocol HTN hold bp meds for now and monitor HLD c/w statin atrophic gastritis -PPI -protonix 40mg bid CAD - stable no complaint monitor off aspirin for now depression and anxiety not in depressed mood. very pleasant not suicidal c/w home meds DVT ppx - scd Full code, has HCP dispo- pending clinical improvement VS, I&O, 24H, Fishbone Vital Signs/I&O Vital Signs Date Time Temp Pulse Resp B/P (MAP) Pulse Ox O2 Delivery O2 Flow Rate FiO2 07/09/18 12:00 97.9 96 20 139/61 (87) 94 3.0 07/09/18 06:00 45 07/09/18 05:00 BIPAP/CPAP I&O- Last 24 Hours up to 6 AM 07/09/18 06:00 Intake Total 490 ml Output Total 860 ml Balance -370 ml Laboratory Data 24H LABS Laboratory Tests 2 07/08/18 17:03: Nucleated Red Blood Cells % (auto) 0.0, Anion Gap 2L, Glomerular Filtration Rate 45.7, Blood Urea Nitrogen 24H, Creatinine 1.22, Sodium Level 145, Potassium Level 4.6, Chloride Level 105, Carbon Dioxide Level 38H, Calcium Level 9.4, Aspartate Amino Transf (AST/SGOT) 20, Alanine Aminotransferase (ALT/SGPT) 25, Alkaline Phosphatase 90, Total Bilirubin 0.4, Total Protein 6.2L, Albumin 2.7L, Albumin/Globulin Ratio 0.77L 07/08/18 17:56: Blood Gas Bicarbonate Standard 35.4H, Arterial Blood pH 7.372, Arterial Blood Partial Pressure CO2 68.4*H, Arterial Blood Partial Pressure O2 66.8L, Arterial Blood Total CO2 40.9H, Arterial Blood HCO3 38.8H, Arterial Blood Base Excess 11.7H, Arterial Blood Oxygen Saturation 93.5L 07/08/18 18:08: Iron Level 46L, Total Iron Binding Capacity 324, Transferrin % Saturation 14.2, Ferritin 49, Total Creatine Kinase 20L, Troponin I < 0.02, PA-Bmu-K-Type Natriuretic Peptide 1594H, Vitamin B12 Level 559, Folate 21.1 07/08/18 21:41: Bedside Glucose (Misc Panel) 148H 07/09/18 04:08: Nucleated Red Blood Cells % (auto) 0.0, Anion Gap 1L, Glomerular Filtration Rate 40.7, Blood Urea Nitrogen 22H, Creatinine 1.35H, Sodium Level 144, Potassium Level 4.1, Chloride Level 104, Carbon Dioxide Level 39H, Calcium Level 8.9, Magnesium Level 1.8 07/09/18 11:53: Bedside Glucose (Misc Panel) 155H CBC/BMP Laboratory Tests 07/08/18 17:03 Red Blood Count 2.73 L, Mean Corpuscular Volume 102.2 H, Mean Corpuscular Hemoglobin 29.3, Mean Corpuscular Hemoglobin Concent 28.7 L, Red Cell Distribution Width 16.8 H, Calcium Level 9.4, Aspartate Amino Transf (AST/SGOT) 20, Alanine Aminotransferase (ALT/SGPT) 25, Alkaline Phosphatase 90, Total Bilirubin 0.4, Total Protein 6.2 L, Albumin 2.7 L 07/09/18 04:08 Red Blood Count 2.62 L, Mean Corpuscular Volume 103.4 H, Mean Corpuscular Hemoglobin 29.4, Mean Corpuscular Hemoglobin Concent 28.4 L, Red Cell Distribution Width 16.8 H, Calcium Level 8.9 Microbiology Microbiology 07/09/18 Gram Stain - Final, Resulted 07/09/18 Sputum Culture, Resulted Pending 07/08/18 Respiratory Virus Panel (PCR) (ARVIND) - Final, Complete QUINTIN HERNANDEZ MD Jul 09, 2018 15:45
[2018-07-09 16:32] LABS: HEMATOCRIT 27.2 % (36.0-47.0); HEMOGLOBIN 7.9 g/dl (12.0-15.5)
[2018-07-09] MEDS ORDERED: LevoFLOXacin IV 250 MG in APPROPRIATE DILUENT 1 EA IV SCH (18:00)
[2018-07-10] VITALS (7 sets, daily range): BP systolic 92–140; BP diastolic 56–67
[2018-07-10 04:36] LABS: HEMATOCRIT 26.3 % (36.0-47.0); HEMOGLOBIN 7.5 g/dl (12.0-15.5); MEAN CORPUSCULAR HEMOGLOBIN 29.1 pg (27.0-33.0); MEAN CORPUSCULAR HGB CONC 28.5 g/dl (32.0-36.5); MEAN CORPUSCULAR VOLUME 101.9 fl (80.0-96.0); PLATELET COUNT, AUTOMATED 163 10^3/uL (150-450); RED BLOOD COUNT 2.58 10^6/uL (4.00-5.40); WHITE BLOOD COUNT 5.8 10^3/uL (4.0-10.0)
[2018-07-10 04:57] LABS: CALCIUM LEVEL 8.2 MG/DL (8.8-10.2); CREATININE FOR GFR 1.43 MG/DL (0.55-1.30); GLOMERULAR FILTRATION RATE 38.1 (>39); MAGNESIUM LEVEL 1.7 MG/DL (1.8-2.4); PHOSPHORUS LEVEL 3.2 MG/DL (2.5-4.9); POTASSIUM SERUM 3.9 MEQ/L (3.5-5.1)
--- NOTE | 2018-07-10 06:24 | ECHO ---
DATE OF PROCEDURE: 07/09/2018 REFERRING PHYSICIAN: Dr. Fenton INDICATION: Congestive heart failure. HEIGHT: 157 cm WEIGHT: 86 kg DIMENSIONS: IVS: 1.2 LV 3.2 LVPW: 1.2 LA: 2.8 Aorta: 2.84 Mitral E wave velocity: 111 A-wave: 130 E prime septal: 6.1 E prime lateral: 10.4 FINDINGS: The study is of rather limited technical quality with very difficult visualization. Left ventricle is of normal size and has grossly normal contractility. I estimate ejection fraction (EF) around 60-65%. Based on technical limitations of the study subtle wall motion abnormalities could be easily missed. Right ventricle also appear grossly normal size and systolic function. Both atria appear normal. Aortic valve is poorly visualized. It is at least mildly sclerotic and there is some restriction of mobility. There are also degenerative abnormalities of mitral valve with mitral annular calcification and thickening of mitral leaflets. Tricuspid valve appears normal. Pulmonic valve was not visualized. No pericardial effusion is noted. Inferior vena cava was not adequately measured but appears grossly normal based on 2-D images. Aortic root is normal. Aortic arch and abdominal aorta were not seen. Doppler interrogation reveals no aortic insufficiency and mild stenosis with mean gradient 14 mmHg. There is no mitral insufficiency and trivial stenosis with mean gradient 4 mmHg. There is mild tricuspid insufficiency. Calculated pulmonary artery pressure is at minimum in high 40s corresponding to moderate pulmonary hypertension. Mitral inflow pattern and tissue Doppler imaging of mitral annulus reveal grade 1 diastolic dysfunction. CONCLUSIONS: 1. Study is of fair technical quality. 2. Normal LV size with mild left ventricular hypertrophy (LVH) and grossly preserved LV systolic function. Grade 1 diastolic dysfunction. 3. Aortic sclerosis with no insufficiency and mild stenosis. 4. Mild mitral stenosis. 5. Normal central venous pressure and at least moderate pulmonary hypertension. COMMENTS: Subacute bacterial endocarditis (SBE) prophylaxis is not recommended.
[2018-07-10] MEDS: TIOTROPIUM INHALER/CAPSULE (SPIRIVA) INH SCH (07:53)
[2018-07-10] MEDS: LEVALBUTEROL HFA 45MCG/ACT 15 GM INHALER INH SCH ×4 (07:54→19:42)
[2018-07-10] MEDS: ADVAIR HFA 230/21MCG INHALER INH SCH ×2 (07:54→19:42)
[2018-07-10] MEDS: DOCUSATE SODIUM 100 MG CAP PO SCH ×2 (08:23→20:55)
[2018-07-10] MEDS: PANTOPRAZOLE 40MG TAB (PROTONIX) PO SCH ×2 (08:23→20:53)
[2018-07-10] MEDS: ATORVASTATIN 20 MG TAB PO SCH (08:23)
[2018-07-10] MEDS: SERTRALINE 100 MG TAB PO SCH (08:23)
[2018-07-10] MEDS: MULTIVITAMINS/MINERALS THERAP 1 TAB PO SCH (08:24)
[2018-07-10] MEDS: LORATADINE 10 MG TAB PO SCH (08:24)
[2018-07-10] MEDS: VENLAFAXINE **XR** 75MG CAPSULE PO SCH (08:24)
[2018-07-10] MEDS: QUEtiapine FUMARATE 25 MG TAB PO SCH ×2 (08:24→20:53)
[2018-07-10] MEDS: FERROUS SULFATE 325MG TAB PO SCH (08:24)
[2018-07-10] MEDS ORDERED: PILL CRUSHER/CUTTER 1 EACH XX PRN (08:30)
--- NOTE | 2018-07-10 13:54 | CCN ---
DATE: 07/10/2018 Patient was seen and examined this morning during rounds. She was on tabletop BiPap overnight. This morning, she is on nasal cannula oxygen, has been able to be weaned down to 2 liters per minute of nasal cannula oxygen. She reports her breathing has been doing well. She denies any significant shortness of breath. No chest pain, no wheezing and no significant coughing. She denies any fevers or chills. No abdominal pain. No nausea or vomiting. PHYSICAL EXAMINATION Temperature 98.3, pulse 110, respirations 18, blood pressure 140/64, O2 sat 94% on 3 liters nasal cannula, in 640, out 1.6 liters; net negative approximately 1 liter. General: The patient is an obese female who is sitting in a chair in no apparent distress. Is able to speak in complete sentences. She does have a hoarse voice which is unchanged. HEENT: Normocephalic, atraumatic. Trachea is midline. No palpable cervical adenopathy. Mucous membranes are moist. Cardiovascular: Regular rate and rhythm. Normal S1, S2. Systolic murmur auscultated in the right upper sternal border. Pulmonary: Improved breath sounds bilaterally. They are diminished with very occasional crackles at the bases. No wheezing or rhonchi. Abdomen is obese, soft, nontender, nondistended. Unable to appreciate any hepatosplenomegaly due to body habitus. Extremities: No lower extremity edema noted bilaterally. LABORATORY DATA WBC 5.8, hemoglobin 7.5. Platelets 163. Chemistry: Sodium 145, potassium 3.9, chloride 103, bicarb 38, BUN 18, creatinine 1.43, glucose 131, magnesium 1.7. IMAGING: Echo showed normal left ventricle (LV) with mild left ventricular hypertrophy (LVH) and grade 1 diastolic dysfunction. There is aortic sclerosis with mild stenosis. Mild mitral stenosis. Normal central venous pressure (CVP) with moderate pulmonary hypertension with right ventricle (RV) systolic pressure estimated in the high 40s. ASSESSMENT/PLAN Mr. Rios is a 73-year female with a history of LINDSAY, noncompliant on C-PAP at home, history of COPD with chronic hypoxemic and hypercapnic respiratory failure on 3 liters nasal cannula oxygen supplementation, chronic kidney disease (CKD), diabetes, depression, hypertension, coronary artery disease (CAD), congestive heart failure (CHF), recent GI bleed status post colonoscopies and EGD at [facility] who presented with increasing shortness breath and lethargy. The patient had acute on chronic hypercarbic respiratory failure and acute on chronic hypoxemic respiratory failure likely in the setting of fluid overload from her recent history of multiple transfusions of packed red blood cells (PRBC) and IV fluid hydration. The patient was placed on BiPap with improvement in her repeat ABGs. She was also given Lasix IV yesterday with appropriate diuresis. This morning, patient appears to be likely close to euvolemic. She does not have any lower extremity edema and her breath sounds have improved. She did not have any significant wheezing and only very mild crackles at the bases. I would hold off on further diuresis at this time and continue with her home medications. Continue to monitor her H and H. If patient were to require any further blood transfusions, would transfuse 1 unit over 4 hours and consider a dose of p.r.n. Lasix with transfusion. The patient did have an echo done which showed an normal EF and some diastolic dysfunction as well as aortic stenosis and mild mitral valve stenosis. She did have evidence of some moderate pulmonary hypertension on her echo and the patient does have elevated BNP. Suspect that her pulmonary hypertension is Group 3 from her untreated obstructive sleep apnea and her history of COPD. Given that diastolic dysfunction, she may have a mild component of Group 2 as well. Discussed with the patient that she will need to continue with her BiPap at home for her sleep apnea. She may have a component of OHS as well given her obesity and her chronic hypercarbia. The patient will also need an outpatient sleep study upon discharge. Continue with nasal cannula supplementation and wean down as tolerated to maintain O2 saturation of 88-92% Continue with Advair, Spiriva, and Xopenex. Deep venous thrombosis (DVT) prophylaxis. Sequential compression devices (SCDs). FULL CODE. Total critical care time spent not including procedures: Approximately 35 minutes. Please do not hesitate to call if any further questions or concerns. MTDD
--- NOTE | 2018-07-10 17:34 | IPNPDOC ---
Date Seen The patient was seen on 07/10/18. Progress Note SUBJECTIVE: This is 73 yo female who was transferred from [facility] on BIPAP for acute on chronic hypoxic and hypercapnic resp failure. Patient also has recent GIB (melena) s/p egd and colonoscopy with polypectomy, and drop in her hbg requiring blood transfusions. She has not had any more episodes of GIB since she has been here. Her oxygen requirement has improved and she is on 2NC saturating as 96%. OBJECTIVE PHYSICAL EXAMINATION: VITAL SIGNS: Please see below. Gen: NAD, healthy appearing , obese, pleasant HEENT: normocephalic, atraumatic, no discharge from ears or nose, no oropharyngeal erythema or exudate, neck is supple, no lymphadenopathy, trachea midline CVS: RRR, normal S1n S2, no murmur, rubs, or gallops, +1 edema in lower extremities, no jvd Resp: LCTAB, no rhonchi, wheezes or crackles Abd : soft nontender, normal bowel sounds, no rebound tenderness or guarding MSK: no swelling, full range of motion, strength 5/5 Neuro: AOAx3, no confusion, no focal deficit Psych: normal mood and affect, good judgment LABORATORY DATA, IMAGING STUDIES, MICROBIOLOGY: Please see below.-reviewed Echocardiogram: 1. Study is of fair technical quality. 2. Normal LV size with mild left ventricular hypertrophy (LVH) and grossly preserved LV systolic function. Grade 1 diastolic dysfunction. 3. Aortic sclerosis with no insufficiency and mild stenosis. 4. Mild mitral stenosis. 5. Normal central venous pressure and at least moderate pulmonary hypertension. DVT prophylaxis ordered?: [scd ] ASSESSMENT AND PLAN: Acute on chronic hypoxic and hypercapnic resp failure - improved COPD with chronic hypoxemia on 4L nc at home//LINDSAY -noncompliant with cpap, on less oxygen than home dose downgrade to med surg BIPAP per pulm - [place] to be dc on bipap per pulm keep O2 sat between 88-92% Pulm consult appreciated c/w spiriva//advair //levalbuterol grade 1 diastolic chf c/w lasix 40mg iv daily echo echo report above trop negative probnp elevated edema has improved CANDIDO 2/2 GIB monitor stool for blood transfuse if patient is bleeding and symptomatic or hgb becomes <7 keep type and screen active c/w iron supplement scd for dvt ppx c/w ppi monitor H and H as needed DM2 last hba1c was 5.4 % f/s has been wnl, so dc monitor for now hypoglycemic protocol HTN hold bp meds for now and monitor HLD c/w statin atrophic gastritis -PPI -protonix 40mg bid CAD - stable no complaint monitor off aspirin for now depression and anxiety not in depressed mood. very pleasant not suicidal c/w home meds DVT ppx - scd Full code, has HCP dispo- can likely be dc in 1-2 days - pending PT VS, I&O, 24H, Fishbone Vital Signs/I&O Vital Signs Date Time Temp Pulse Resp B/P (MAP) Pulse Ox O2 Delivery O2 Flow Rate FiO2 07/10/18 15:00 98.6 109 20 92/56 (68) 92 2.0 07/09/18 21:11 Nasal Cannula 07/09/18 06:00 45 I&O- Last 24 Hours up to 6 AM 07/10/18 06:00 Intake Total 640 ml Output Total 1512 ml Balance -872 ml Laboratory Data 24H LABS Laboratory Tests 2 07/10/18 00:17: Bedside Glucose (Misc Panel) 144H 07/10/18 04:19: Nucleated Red Blood Cells % (auto) 0.0, Anion Gap 4L, Glomerular Filtration Rate 38.1L, Blood Urea Nitrogen 18, Creatinine 1.43H, Sodium Level 145, Potassium Level 3.9, Chloride Level 103, Carbon Dioxide Level 38H, Calcium Level 8.2L, Phosphorus Level 3.2, Magnesium Level 1.7L 07/10/18 16:43: Bedside Glucose (Misc Panel) 157H CBC/BMP Laboratory Tests 07/10/18 04:19 Red Blood Count 2.58 L, Mean Corpuscular Volume 101.9 H, Mean Corpuscular Hemoglobin 29.1, Mean Corpuscular Hemoglobin Concent 28.5 L, Red Cell Distribution Width 17.2 H, Calcium Level 8.2 L Microbiology Microbiology 07/09/18 Gram Stain - Final, Resulted 07/09/18 Sputum Culture, Resulted Pending 07/08/18 Respiratory Virus Panel (PCR) (ARVIND) - Final, Complete QUINTIN HERNANDEZ MD Jul 10, 2018 17:34
[2018-07-10] MEDS ORDERED: MAG SULF 1GM/100ML (MAG RUN) 1 GM in APPROPRIATE DILUENT 1 EA IV ONE (20:00)
[2018-07-11 06:00] VITALS: BP 118/67
[2018-07-11 06:15] LABS: HEMATOCRIT 26.4 % (36.0-47.0); HEMOGLOBIN 7.7 g/dl (12.0-15.5); MEAN CORPUSCULAR HEMOGLOBIN 29.7 pg (27.0-33.0); MEAN CORPUSCULAR HGB CONC 29.2 g/dl (32.0-36.5); MEAN CORPUSCULAR VOLUME 101.9 fl (80.0-96.0); PLATELET COUNT, AUTOMATED 151 10^3/uL (150-450); RED BLOOD COUNT 2.59 10^6/uL (4.00-5.40)
[2018-07-11 06:42] LABS: CALCIUM LEVEL 8.4 MG/DL (8.8-10.2); CREATININE FOR GFR 1.27 MG/DL (0.55-1.30); GLOMERULAR FILTRATION RATE 43.7 (>39); PHOSPHORUS LEVEL 2.7 MG/DL (2.5-4.9); POTASSIUM SERUM 3.7 MEQ/L (3.5-5.1)
[2018-07-11] MEDS: TIOTROPIUM INHALER/CAPSULE (SPIRIVA) INH SCH (07:33)
[2018-07-11] MEDS: ADVAIR HFA 230/21MCG INHALER INH SCH ×2 (07:33→19:27)
[2018-07-11] MEDS: LEVALBUTEROL HFA 45MCG/ACT 15 GM INHALER INH SCH ×4 (07:34→19:27)
[2018-07-11] MEDS: ATORVASTATIN 20 MG TAB PO SCH (08:30)
[2018-07-11] MEDS: SERTRALINE 100 MG TAB PO SCH (08:31)
[2018-07-11] MEDS: PANTOPRAZOLE 40MG TAB (PROTONIX) PO SCH ×2 (08:31→20:58)
[2018-07-11] MEDS: QUEtiapine FUMARATE 25 MG TAB PO SCH ×2 (08:31→20:58)
[2018-07-11] MEDS: MULTIVITAMINS/MINERALS THERAP 1 TAB PO SCH (08:31)
[2018-07-11] MEDS: LORATADINE 10 MG TAB PO SCH (08:31)
[2018-07-11] MEDS: VENLAFAXINE **XR** 75MG CAPSULE PO SCH (08:31)
[2018-07-11] MEDS: FERROUS SULFATE 325MG TAB PO SCH (08:31)
[2018-07-11] MEDS: DOCUSATE SODIUM 100 MG CAP PO SCH ×2 (08:31→20:58)
[2018-07-11] MEDS: METOPROLOL TART 50 MG TAB PO SCH ×2 (09:00→20:58)
[2018-07-11] MEDS: FUROSEMIDE 40 MG TAB PO SCH (09:00)
[2018-07-11 11:15] VITALS: BP 81/40
[2018-07-11 11:17] VITALS: BP 88/49
[2018-07-11 11:20] VITALS: BP 113/65
[2018-07-11 14:00] VITALS: BP 103/67
[2018-07-11 15:49] LABS: HEMATOCRIT 27.6 % (36.0-47.0); HEMOGLOBIN 7.8 g/dl (12.0-15.5); MEAN CORPUSCULAR HEMOGLOBIN 29.3 pg (27.0-33.0); MEAN CORPUSCULAR HGB CONC 28.3 g/dl (32.0-36.5); MEAN CORPUSCULAR VOLUME 103.8 fl (80.0-96.0); PLATELET COUNT, AUTOMATED 158 10^3/uL (150-450); RED BLOOD COUNT 2.66 10^6/uL (4.00-5.40); WHITE BLOOD COUNT 6.1 10^3/uL (4.0-10.0)
--- NOTE | 2018-07-11 16:34 | ECGEPIP ---
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 Not significantly changed from 04/26/13. Electronically Signed On 07-11-2018 16:34:27 EDT by Raymond Flannery
[2018-07-11 18:30] VITALS: BP 116/63
--- NOTE | 2018-07-11 18:44 | IPNPDOC ---
Date Seen The patient was seen on 07/11/18. Progress Note SUBJECTIVE: This is 73 yo female who was transferred from [facility] on BIPAP for acute on chronic hypoxic and hypercapnic resp failure (hx of COPD on 4L nc). Patient also has recent GIB (melena) s/p egd and colonoscopy with polypectomy, and drop in her hbg requiring blood transfusions. She has not had any more episodes of GIB since she has been here. Her oxygen requirement has improved and she is on 2NC saturating as 96%. Today she was back to 4 liter nc, although had no complaint, her HR has been in the low 100s. I attempt to resume her home dose metoprolol but her BP was <90 and it was held instead. With concern for possible recurrent GIB, a cbc was sent to lab which resulted in hgb of 7.8, it was 7.7 yesterday. Patient denied abd pain or recurrent GIB. SHe is still on bid protonix. She denied any symptoms. stool occult pending. Of note her BP was taken of the leg because the bp cuff is too small for her arm. This could be giving false reading as well. Clinically she looks great, did PT w/o any complaint . OBJECTIVE PHYSICAL EXAMINATION: VITAL SIGNS: Please see below. Gen: NAD, healthy appearing , obese, pleasant HEENT: normocephalic, atraumatic, no discharge from ears or nose, no oropharyngeal erythema or exudate, neck is supple, no lymphadenopathy, trachea midline CVS: RRR, normal S1n S2, no murmur, rubs, or gallops, +1 edema in lower extremities, no jvd Resp: midly diffused crackles, no rhonchi or wheezes Abd : soft nontender, normal bowel sounds, no rebound tenderness or guarding MSK: no swelling, full range of motion, strength 5/5 Neuro: AOAx3, no confusion, no focal deficit Psych: normal mood and affect, good judgment LABORATORY DATA, IMAGING STUDIES, MICROBIOLOGY: Please see below.-reviewed Echocardiogram: 1. Study is of fair technical quality. 2. Normal LV size with mild left ventricular hypertrophy (LVH) and grossly preserved LV systolic function. Grade 1 diastolic dysfunction. 3. Aortic sclerosis with no insufficiency and mild stenosis. 4. Mild mitral stenosis. 5. Normal central venous pressure and at least moderate pulmonary hypertension. DVT prophylaxis ordered?: [scd ] ASSESSMENT AND PLAN: Acute on chronic hypoxic and hypercapnic resp failure - improved COPD with chronic hypoxemia on 4L nc at home//LINDSAY -noncompliant with cpap, on 4L nc today BIPAP per pulm - [place] to be dc on bipap per pulm keep O2 sat between 88-92% Pulm consult appreciated c/w spiriva//advair //levalbuterol grade 1 diastolic chf lasix 40mg iv daily was dc yesterday, but patient was on 80mg po at home, today she has some crackles and increased amount of oxygen demand. PO lasix was restarted at 40mg daily, but given her low BP today, will hold the 40 and give 20,mg po instead and 25mg po metoprolol to improve the HR echo report above trop negative probnp elevated edema has improved CANDIDO 2/2 GIB monitor stool for blood transfuse if patient is bleeding and symptomatic or hgb becomes <7 keep type and screen active c/w iron supplement scd for dvt ppx c/w ppi monitor H and H as needed DM2 last hba1c was 5.4 % f/s has been wnl, so dc monitor for now hypoglycemic protocol HTN resume metoprolol and lasix - but lower than home dose and reassess HLD c/w statin atrophic gastritis -PPI -protonix 40mg bid CAD - stable no complaint monitor off aspirin for now vital signs had reported - with irreg pulse , ekg was done and shows NSR with RBBB depression and anxiety not in depressed mood. very pleasant not suicidal c/w home meds DVT ppx - scd Full code, has HCP dispo- can likely be dc in 1 day - pending PT recs VS, I&O, 24H, Fishbone Vital Signs/I&O Vital Signs Date Time Temp Pulse Resp B/P (MAP) Pulse Ox O2 Delivery O2 Flow Rate FiO2 07/11/18 14:00 98.4 115 20 103/67 (79) 95 6.0 07/11/18 01:15 36 07/09/18 21:11 Nasal Cannula I&O- Last 24 Hours up to 6 AM 07/11/18 06:00 Intake Total 1420 ml Output Total 470 ml Balance 950 ml Laboratory Data 24H LABS Laboratory Tests 2 07/11/18 05:58: Nucleated Red Blood Cells % (auto) 0.0, Anion Gap 1L, Glomerular Filtration Rate 43.7, Blood Urea Nitrogen 17, Creatinine 1.27, Sodium Level 142, Potassium Level 3.7, Chloride Level 103, Carbon Dioxide Level 38H, Calcium Level 8.4L, Phosphorus Level 2.7, Magnesium Level 2.0 07/11/18 15:33: Nucleated Red Blood Cells % (auto) 0.0 CBC/BMP Laboratory Tests 07/11/18 05:58 Red Blood Count 2.59 L, Mean Corpuscular Volume 101.9 H, Mean Corpuscular Hemoglobin 29.7, Mean Corpuscular Hemoglobin Concent 29.2 L, Red Cell Distribution Width 17.2 H, Calcium Level 8.4 L 07/11/18 15:33 Red Blood Count 2.66 L, Mean Corpuscular Volume 103.8 H, Mean Corpuscular Hemoglobin 29.3, Mean Corpuscular Hemoglobin Concent 28.3 L, Red Cell Distribution Width 17.4 H Microbiology Microbiology 07/09/18 Gram Stain - Final, Complete 07/09/18 Sputum Culture - Final, Complete Yeast Like Organism 07/08/18 Respiratory Virus Panel (PCR) (ARVIND) - Final, Complete QUINTIN HERNANDEZ MD Jul 11, 2018 18:44
[2018-07-11] MEDS ORDERED: FUROSEMIDE 20 MG TAB PO ONE (18:45)
[2018-07-11] MEDS ORDERED: METOPROLOL TART 25 MG TABLET PO ONE (18:45)
[2018-07-12 02:00] VITALS: BP 131/57
[2018-07-12 05:55] LABS: HEMOGLOBIN 7.9 g/dl (12.0-15.5); MEAN CORPUSCULAR HEMOGLOBIN 29.2 pg (27.0-33.0); MEAN CORPUSCULAR HGB CONC 28.2 g/dl (32.0-36.5); MEAN CORPUSCULAR VOLUME 103.3 fl (80.0-96.0); PLATELET COUNT, AUTOMATED 158 10^3/uL (150-450); RED BLOOD COUNT 2.71 10^6/uL (4.00-5.40); WHITE BLOOD COUNT 5.7 10^3/uL (4.0-10.0)
[2018-07-12 06:00] VITALS: BP 114/87
[2018-07-12 06:28] LABS: CALCIUM LEVEL 8.4 MG/DL (8.8-10.2); CREATININE FOR GFR 1.23 MG/DL (0.55-1.30); FREE T4 0.89 NG/DL (0.76-1.46); GLOMERULAR FILTRATION RATE 45.3 (>39); MAGNESIUM LEVEL 1.9 MG/DL (1.8-2.4); PHOSPHORUS LEVEL 3.3 MG/DL (2.5-4.9); THYROID STIMULATING HORMONE 3.74 uIU/ML (0.358-3.740)
[2018-07-12] MEDS: ADVAIR HFA 230/21MCG INHALER INH SCH (07:06)
[2018-07-12] MEDS: TIOTROPIUM INHALER/CAPSULE (SPIRIVA) INH SCH (07:06)
[2018-07-12] MEDS: LEVALBUTEROL HFA 45MCG/ACT 15 GM INHALER INH SCH ×3 (07:10→15:03)
[2018-07-12] MEDS: DOCUSATE SODIUM 100 MG CAP PO SCH (08:42)
[2018-07-12] MEDS: SERTRALINE 100 MG TAB PO SCH (08:42)
[2018-07-12] MEDS: QUEtiapine FUMARATE 25 MG TAB PO SCH (08:42)
[2018-07-12] MEDS: MULTIVITAMINS/MINERALS THERAP 1 TAB PO SCH (08:42)
[2018-07-12] MEDS: PANTOPRAZOLE 40MG TAB (PROTONIX) PO SCH (08:42)
[2018-07-12] MEDS: LORATADINE 10 MG TAB PO SCH (08:43)
[2018-07-12] MEDS: FERROUS SULFATE 325MG TAB PO SCH (08:43)
[2018-07-12] MEDS: VENLAFAXINE **XR** 75MG CAPSULE PO SCH (08:43)
[2018-07-12] MEDS: ATORVASTATIN 20 MG TAB PO SCH (08:43)
[2018-07-12 08:52] VITALS: BP 146/62
[2018-07-12] MEDS: METOPROLOL TART 50 MG TAB PO SCH (08:52)
[2018-07-12] MEDS: FUROSEMIDE 40 MG TAB PO SCH (09:48)
[2018-07-12 14:00] VITALS: BP 136/52
--- NOTE | 2018-07-12 17:09 | DS.PDOC ---
Discharge Summary General Date of Admission Jul 08, 2018 at 15:48 Date of Discharge 07/12/18 Discharge Summary PROCEDURES PERFORMED DURING STAY: [None]. ADMITTING DIAGNOSES: 1. [acute on chronic hypoxic and hypercapnic resp failure DISCHARGE DIAGNOSES: 1. [acute on chronic hypoxic and hypercapnic resp failure]. COMPLICATIONS/CHIEF COMPLAINT: Respiratory Failure On Bipap. HISTORY OF PRESENT ILLNESS: This is 89 yo female who was transferred from [facility] on BIPAP for acute on chronic hypoxic and hypercapnic resp failure. Hospital prior to being transferred - Patient was initially admitted to [facility] on 06/18-06/27 for symptomatic anemia with hgb of 4.9. She was transfused 2 units of prbc. She underwent EGD and colonoscopy and was found to have atrophic gastritis and multiple polyps which were removed. She improved clinically and was admitted at [facility] on 06/27/18. She again had symptomatic anemia and her Hgb dropped from 10.4-8.3 and she was having black tarry stool. She was sent back to [facility] where she again underwent egd and colonoscopy and another polyp was found and excised on 07/04/18. She had marybeth and potassium imbalances which were corrected accordingly. She was discharged to [facility] and while there staff had difficulty obtaining an O2 sat, she was lethargic and an ABG was performed and resulted as ph 7.26/pco2 96.4/PAo2 75. Patient was placed on BIPAP and at 12/6 and fio2 of 40%, and BP dropped to 90/51. Given developing complications, patient was transferred to [facility] for further mgt. HOSPITAL COURSE: After admission patient was continued on bipap (settings per detailer furniture), abg showed hypercapnic and hypoxic respiratory failure, and she was given lasix which (along with bipap) improved her symptoms drastically by the next 2 days. Initially She is back on her home dose oxygen 4L nc saturating at 93-95%. Altho ugh there was a questionable infiltrate on cxr, the detailer furniture was not convinced and she was observed off antibiotics and a respiratory panel and sputum gram stain and culture were collected and found to be negative. She also did not have any melena or hematochezia since this admission. A physical therapist evaluated her and said she was functioning well to go home instead of back to the rehab. Patient was set up with home care and is stable for discharge today. Barking Machine Feeder also recommended for her to be discharged with bipap at present setting that worked for her here, to use at bedtime at home and hold off on cpap. She should follow up outpatient for repeat sleep study DISCHARGE MEDICATIONS: Please see below. ALLERGIES: Please see below. PHYSICAL EXAMINATION ON DISCHARGE: VITAL SIGNS: Please see below. Gen: NAD, healthy appearing , high bmi, pleasant HEENT: normocephalic, atraumatic, no discharge from ears or nose, no oropharyngeal erythema or exudate, neck is supple, no lymphadenopathy, trachea midline CVS: RRR, normal S1n S2, no murmur, rubs, or gallops, +1 pitteing edema in lower extremities b/l, no jvd Resp: LCTAB, no rhonchi, crackles, very mild wheezes Abd : soft nontender, normal bowel sounds, no rebound tenderness or guarding MSK: no swelling, full range of motion, strength 5/5 Neuro: AOAx3, no confusion, no focal deficit Psych: normal mood and affect, good judgment LABORATORY DATA: Please see below. IMAGING: [facility] NAME: LUTHER ASIF DATE OF : 1945 AGE: 73 SEX: F REPORT #: [id number] ROOM: ICU TECHNOLOGIST: RADHA DOCTOR: QUINTIN HERNANDEZ MD Ordered for Date&Time: 07/08/18 1748 cc: [~ rep ct ivnm] Service Date&Time: 07/08/18 1802 This report is in Signed status. If this report is in a DRAFT status it has not yet been reviewed by the radiologist for accuracy. Thank you for having your radiology procedures performed at [facility] RADIOLOGY REPORT Date&Time printed: [~ rep prt dt last] [~ rep prt tm last] Page [address] [id number] RADIOLOGY REPORT This report is in Signed status. If this report is in a DRAFT status it has not yet been reviewed by the radiologist for accuracy. Thank you for having your radiology procedures performed at [facility] RADIOLOGY REPORT Date&Time printed: [~ rep prt dt last] [~ rep prt tm last] Page 1 of 1 NAME: LUTHER ASIF DATE OF : 1945 AGE: 73 SEX: F REPORT #: [id number] ROOM: M ICU TECHNOLOGIST: RADHA DOCTOR: QUINTIN HERNANDEZ MD Ordered for Date&Time: 07/08/18 1748 cc: [~ rep ct ivnm] Service Date&Time: 07/08/18 180 EXAMINATION REQUESTED: Chest, 1 view REASON FOR PATIENT VISIT: RESPIRATORY FAILURE ON BIPAP REASON FOR EXAM/COMMENT: hopxemia/hypercapnia Clinical: Hypoxia. Technique: Portable semiupright AP chest. Comparison: 11/06/2016. Findings: Minimal bibasilar atelectasis and left lower lobe/retrocardiac consolidation appreciated. No definite effusion. No pneumothorax. Cardiac silhouette is normal. Skeletal structures intact. Impression: Left lower lobe consolidation and basilar atelectasis. Electronically Signed by Kenneth Davis MD 07/08/2018 06:05 P DD: Kenneth Davis MD 07/08/181803 04 DS: ANITA 07/08/[id number]/08/181804 [~ rep ct labl] [facility] NAME: LUTHER ASIF DATE OF : 1945 AGE: 73 SEX: F REPORT #: [id number] ROOM: ICU TECHNOLOGIST: YOAN DOCTOR: MIGUEL ÁNGEL QUINTEROS MD Ordered for Date&Time: 07/08/18 1854 cc: [~ rep ct ivnm] Service Date&Time: 07/08/18 194 This report is in Signed status. If this report is in a DRAFT status it has not yet been reviewed by the radiologist for accuracy. Thank you for having your radiology procedures performed at [facility] RADIOLOGY REPORT Date&Time printed: [~ rep prt dt last] [~ rep prt tm last] Page 1 of [address] [address] RADIOLOGY REPORT This report is in Signed status. If this report is in a DRAFT status it has not yet been reviewed by the radiologist for accuracy. Thank you for having your radiology procedures performed at [facility] RADIOLOGY REPORT Date&Time printed: [~ rep prt dt last] [~ rep prt tm last] Page 1 of 1 NAME: LUTHER ASIF DATE OF : 1945 AGE: 73 SEX: F REPORT #: [id number] ROOM: ICU TECHNOLOGIST: RAUDEL DOCTOR: MIGUEL ÁNGEL QUINTEROS MD Ordered for Date&Time: 07/08/181853 cc: [~ rep ct ivnm] Service Date&Time: 07/08/181945 EXAMINATION REQUESTED: Duplex, Ext LOWER veins, bilat BILATERAL REASON FOR PATIENT VISIT: RESPIRATORY FAILURE ON BIPAP REASON FOR EXAM/COMMENT: LE edema Clinical: Bilateral lower extremity edema . Technique: Rios scale and color Doppler evaluation using linear high frequency transducer. Findings: Ultrasound examination of the right and left lower extremity deep venous structures from the common femoral vein to the popliteal vein demonstrates normal compressibility flow and wave patterns in response to respiration and augmentation. There is no evidence for deep venous thrombosis. Impression: No evidence for deep venous thrombosis. Electronically Signed by Kenneth Davis MD 07/08/2018 07:52 P DD: Kenneth Davis MD 07/08/181951 51 DS: ANITA 07/08/18195107/08/181951 [~ rep ct labl] PROGNOSIS: [guarded] ACTIVITY: [As tolerated]. DIET: [2gm sodium diet and fluid restriction 1800ml/day ] DISPOSITION: 06 Home Health Service. DISCHARGE INSTRUCTIONS: f/u with pcp in 1 week, f/u with transportation associate who did colonoscopy and egd for results 1. Barking Machine Feeder also recommended for her to be discharged with bipap at present setting that worked for her here, to use at bedtime at home and hold off on cpap. She should follow up outpatient for repeat sleep study DISCHARGE CONDITION: [Stable]. TIME SPENT ON DISCHARGE: Greater than [20] minutes. Vital Signs/I&Os Vital Signs Date Time Temp Pulse Resp B/P (MAP) Pulse Ox O2 Delivery O2 Flow Rate FiO2 07/12/18 14:00 97.9 81 18 136/52 (80) 95 4.0 07/12/18 03:35 36 07/09/18 21:11 Nasal Cannula I&O- Last 24 Hours up to 6 AM 07/12/18 06:00 Intake Total 1080 ml Output Total 750 ml Balance 330 ml Laboratory Data Labs 24H Laboratory Tests 2 07/12/18 05:27: Nucleated Red Blood Cells % (auto) 0.0, Anion Gap 0L, Glomerular Filtration Rate 45.3, Blood Urea Nitrogen 15, Creatinine 1.23, Sodium Level 142, Potassium Level 4.0, Chloride Level 101, Carbon Dioxide Level 41H, Calcium Level 8.4L, Phosphorus Level 3.3#, Magnesium Level 1.9, Thyroid Stimulating Hormone (TSH) 3.740, Free Thyroxine 0.89 CBC/BMP Laboratory Tests 07/12/18 05:27 Red Blood Count 2.71 L, Mean Corpuscular Volume 103.3 H, Mean Corpuscular Hemoglobin 29.2, Mean Corpuscular Hemoglobin Concent 28.2 L, Red Cell Distribution Width 17.4 H, Calcium Level 8.4 L Microbiology Microbiology 07/12/18 Stool Occult Blood (ARVIND) - Final, Complete 07/09/18 Gram Stain - Final, Complete 07/09/18 Sputum Culture - Final, Complete Yeast Like Organism 07/08/18 Respiratory Virus Panel (PCR) (ARVIND) - Final, Complete Discharge Medications Scheduled Amlodipine Besylate (Amlodipine Besylate) 5 Mg Tab, 5 MG PO DAILY, (Reported) STARTED AT [facility] Aspirin (Aspirin) 325 Mg Tab, 162.5 MG PO DAILY, (Reported) Atorvastatin Calcium (Atorvastatin Calcium) 80 Mg Tab, 80 MG PO DAILY, (Reported) Ferrous Sulfate (Ferrous Sulfate) 325 Mg Tab, 162.5 MG PO DAILY, (Reported) Fluticasone Propion/Salmeterol (Advair Hfa 230-21 Mcg Inhaler) 1 Aer Aer, 2 PUFF INH BID, (Reported) Furosemide (Lasix) 80 Mg Tab, 80 MG PO DAILY, (Reported) Loratadine (Loratadine) 10 Mg Tab, 10 MG PO DAILY, (Reported) Metoprolol Tartrate (Metoprolol Tartrate) 50 Mg Tab, 50 MG PO BID, (Reported) Multivitamins (Thera M Plus Tablet) 1 Tab Tab, 1 TAB PO DAILY, (Reported) Pantoprazole Sodium (Pantoprazole Sodium) 40 Mg Tab, 40 MG PO BID, (Reported) STARTED AT [facility] Quetiapine Fumarate (Seroquel) 25 Mg Tab, 25 MG PO BID, (Reported) STARTED AT [facility] Sertraline HCl (Sertraline HCl) 100 Mg Tab, 100 MG PO DAILY, (Reported) Sitagliptin Phosphate (Januvia) 25 Mg Tab, 25 MG PO DAILY, (Reported) Tiotropium [place] (Spiriva) 18 Mcg Cap, 1 INHALATION INH DAILY, (Reported) Venlafaxine HCl (Venlafaxine HCl ER) 75 Mg Capcr, 75 MG PO DAILY, (Reported) Scheduled PRN Acetaminophen (Tylenol Arthritis) 650 Mg Tab, 650 MG PO Q8H PRN for PAIN, (Reported) Allergies Coded Allergies: Penicillins (Unverified Allergy, Unknown, SWELLING, 07/08/18) erythromycin base (Unverified Allergy, Unknown, 07/08/18) metformin (Unverified Allergy, Unknown, 07/08/18) QUINTIN HERNANDEZ MD Jul 12, 2018 17:09
[2018-07-14 10:13] LABS: HOMOCYSTEINE 8.5 umol/L (5.1-13.9)
[2018-07-14] MEDS ORDERED: PANT40TA3 PO (11:34)
[2018-07-14] MEDS ORDERED: AMLO5TAB6 PO (11:34)
[2018-07-14] MEDS ORDERED: SERO1TAB3 PO (11:34)
== END 2018-07-12 15:30 | disposition home health service (06) | DRG 291 ==
LOC: M ICU 15:48 → EDBD 15:48 → M MS5PR 07-10 14:38
PROVIDERS: ADMIT Internal Medicine; ATTEND Internal Medicine
DX: I13.0 Hypertensive heart and chronic kidney disease with heart failure and stage 1 through stage 4 chronic kidney disease, or unspecified chronic kidney disease (principal); J96.21 Acute and chronic respiratory failure with hypoxia; J96.22 Acute and chronic respiratory failure with hypercapnia; I50.33 Acute on chronic diastolic (congestive) heart failure; D50.0 Iron deficiency anemia secondary to blood loss (chronic); J44.9 Chronic obstructive pulmonary disease, unspecified; E11.22 Type 2 diabetes mellitus with diabetic chronic kidney disease; E78.5 Hyperlipidemia, unspecified; I25.10 Atherosclerotic heart disease of native coronary artery without angina pectoris; G47.33 Obstructive sleep apnea (adult) (pediatric); N18.9 Chronic kidney disease, unspecified; J30.9 Allergic rhinitis, unspecified; F32.9 Major depressive disorder, single episode, unspecified; F41.9 Anxiety disorder, unspecified; E66.9 Obesity, unspecified; R51 Headache; Z86.11 Personal history of tuberculosis; Z86.19 Personal history of other infectious and parasitic diseases; Z87.891 Personal history of nicotine dependence; Z79.82 Long term (current) use of aspirin; Z79.899 Other long term (current) drug therapy; Z88.0 Allergy status to penicillin; Z88.1 Allergy status to other antibiotic agents; Z88.8 Allergy status to other drugs, medicaments and biological substances; Z90.49 Acquired absence of other specified parts of digestive tract; Z85.038 Personal history of other malignant neoplasm of large intestine; Z98.41 Cataract extraction status, right eye; Z98.42 Cataract extraction status, left eye; Z99.81 Dependence on supplemental oxygen; Z68.34 Body mass index [BMI] 34.0-34.9, adult

== ENCOUNTER 2018-07-16 09:33 | Inpatient (IN) | payer MEDICARE, BC, OTHER ==
[2018-07-16] VITALS (8 sets, daily range): BP systolic 86–127; BP diastolic 49–61; O2SAT 95–97
[~2018-07-16] VITALS: Ht 157.5 cm; Wt 76.4 kg
[~2018-07-16 09:33] MED LIST changes: +ADVA230A INH; +AMLO5TAB6 PO; +ASPI-1 PO; +ASPI1TAB20 PO; +ATOR80TA59 PO; +FERR1TAB8 PO; +GLIM4TAB PO; +JANU25TA PO; +LASI80TA3 PO; +LORA-243 PO; +METO50TA7 PO; +PANT40TA3 PO; +PANTOPRAZOLE 40MG TAB (PROTONIX) PO SCH; +QUEtiapine FUMARATE 25 MG TAB PO SCH; +SERO1TAB3 PO; +SERT-138 PO; +TYLE650T35 PO; +VENL75CA47 PO; +VITMTA PO
--- NOTE | 2018-07-16 10:07 | REP ---
CT brain without contrast: History: Altered mental status. No comparison brain imaging. CT findings: Digital preliminary teacher of the deaf/hard of hearing radiograph is unremarkable. Bone window settings demonstrate an intact bony calvarium. There is fairly heavy vascular calcification in the distal carotid and to some degree, the distal vertebral arteries. The visualized paranasal sinuses are clear. No intraorbital abnormality is seen. There is mild diffuse cerebral atrophy. There are extensive periventricular low density areas bilaterally consistent with small vessel atherosclerotic change. There is no evidence of intracranial hemorrhage. No acute infarction is apparent. No extra-axial fluid collection is seen. No mass or midline shift is observed. Impression: Vascular calcification. Mild diffuse atrophy and fairly prominent small vessel changes. No acute infarct, hemorrhage, mass or midline shift is seen. Electronically Signed by John Paz MD 07/16/2018 09:58 A
--- NOTE | 2018-07-16 10:13 | REP ---
Chest x-ray: Two views. History: Altered mental status. Comparison study: July 08, 2018. Findings: EKG monitoring electrodes overlie the chest. There is blunting of the right lateral pleural angle indicating small amount of right pleural fluid. Both pleural angles are blunted posteriorly on the lateral film and there is some fissural fluid in the major fissure. Pulmonary vasculature is congested and a little indistinct. Mild cardiomegaly is observed. There are Sarah B lines on the left. Impression: CHF pattern. Cardiomegaly with small bilateral effusions and pulmonary vascular congestion. Sarah B lines. Electronically Signed by John Paz MD 07/16/2018 10:05 A
[2018-07-16 10:52] LABS: BASO # 0.1 10^3/uL (0.0-0.2); BASO % 0.7 % (0.0-1.0); EOS # 0.1 10^3/uL (0.0-0.50); EOS % 1.1 % (0.0-3.0); HEMATOCRIT 30.9 % (36.0-47.0); HEMOGLOBIN 8.9 g/dl (12.0-15.5); LYMPH # 0.7 10^3/uL (1.5-4.5); LYMPH % 8.2 % (24.0-44.0); MEAN CORPUSCULAR HEMOGLOBIN 30.1 pg (27.0-33.0); MEAN CORPUSCULAR HGB CONC 28.8 g/dl (32.0-36.5); MEAN CORPUSCULAR VOLUME 104.4 fl (80.0-96.0); MONO # 0.9 10^3/uL (0.0-0.8); MONO % 10.6 % (0.0-5.0); NEUTROPHILS # 6.3 10^3/uL (1.8-7.7); NEUTROPHILS % 78.8 % (36.0-66.0); PLATELET COUNT, AUTOMATED 208 10^3/uL (150-450); RED BLOOD COUNT 2.96 10^6/uL (4.00-5.40); WHITE BLOOD COUNT 8.1 10^3/uL (4.0-10.0)
[2018-07-16] MEDS ORDERED: QUET1TAB7 PO (11:06)
[2018-07-16] MEDS ORDERED: AMLO5TAB6 PO (11:06)
[2018-07-16] MEDS ORDERED: PANT40TA3 PO (11:06)
[2018-07-16 11:13] LABS: ALBUMIN 3.2 GM/DL (3.2-5.2); ALT/SGPT 30 U/L (12-78); BILIRUBIN,DIRECT < 0.1 MG/DL (0.0-0.2); BILIRUBIN,TOTAL 0.4 MG/DL (0.2-1.0); BLOOD UREA NITROGEN 29 MG/DL (7-18); CALCIUM LEVEL 8.7 MG/DL (8.8-10.2); CARBON DIOXIDE LEVEL 40 MEQ/L (21-32); CHLORIDE LEVEL 98 MEQ/L (98-107); CPK CREATINE PHOSPHOKINASE 31 U/L (26-192); CREATININE FOR GFR 1.61 MG/DL (0.55-1.30); GLOMERULAR FILTRATION RATE 33.2 (>39); GLUCOSE, FASTING 152 MG/DL (70-100); MB/CK RELATIVE INDEX 8.39 (< OR =4); POTASSIUM SERUM 4.3 MEQ/L (3.5-5.1); SODIUM LEVEL 142 MEQ/L (136-145); TOTAL PROTEIN 6.3 GM/DL (6.4-8.2); TROPONIN I < 0.02 NG/ML (< 0.10)
[2018-07-16 12:25] LABS: FREE T4 0.82 NG/DL (0.76-1.46)
[2018-07-16] MEDS ORDERED: GLUCOSE 4 GM CHEW TABLET PO PRN (12:45)
[2018-07-16] MEDS ORDERED: DEXTROSE 50% 50 ML SYRINGE IV PRN (12:45)
[2018-07-16] MEDS ORDERED: ACETAMINOPHEN 650MG ER TAB (TYLENOL ARTHRITIS) PO PRN (12:45)
[2018-07-16] MEDS ORDERED: GLUCAGON FOR INJ 1 MG VIAL (J1610) SC PRN (12:45)
[2018-07-16 12:47] LABS: ABG BASE EXCESS 15.1 (-2.0-2.0); ABG HCO3 46.8 MEQ/L (22.0-26.0); ABG O2 SATURATION 97.8 % (95.0-99.0); ABG PARTIAL PRESSURE O2 106.3 mmHg (75.0-100.0); ABG STANDARD HCO3 38.9 MEQ/L (22.0-26.0); ABG TOTAL CO2 50.6 MEQ/L (23.0-31.0)
[2018-07-16 12:53] LABS: ABG pH (ARTERIAL) 7.189 UNITS (7.350-7.450)
[2018-07-16 12:54] LABS: ABG PARTIAL PRESSURE CO2 125.5 mmHg (35.0-45.0)
[2018-07-16] MEDS ORDERED: PILL CRUSHER/CUTTER 1 EACH XX PRN (13:30)
--- NOTE | 2018-07-16 13:53 | REP ---
Portable chest x-ray: Single view. History: Central line placement. Comparison study: July 16, 2018. Findings: Oxygen delivery tubing and EKG electrodes are seen. A right subclavian catheter is noted in place with its tip in the expected location of the superior vena cava. There is no evidence of pneumothorax. Slight blunting persist in the right lateral pleural angle. Interstitial markings are increased in the bases. Cardiomegaly is observed as before. Impression: Right subclavian line in place. No complication is identified. Electronically Signed by John Paz MD 07/16/2018 01:45 P
[2018-07-16] MEDS: FUROSEMIDE injection 250 MG in D5W 225 ML IV SCH (14:12)
[2018-07-16] MEDS: NOREPINEPHRINE BITARTRATE 16 MG in D5W 484 ML IV SCH (14:13)
--- NOTE | 2018-07-16 14:32 | ROOPDOC ---
[facility] Report Of Operation Report of Operation INDICATION: shock, hypotension DATE: 07/16/18 ATTENDING PHYSICIAN: Dr. Pace CONSENT: Consent was obtained from pt and her daughter and son-in-law prior to the procedure. Indications, risks, and benefits were explained at length. All questions answered. PROCEDURE SUMMARY: A time-out was completed, verifying correct patient, procedure, site, positioning, and implant(s) or special equipment if applicable. Patients right subclavian area was prepped and draped in usual sterile fashion. 2% Lidocaine was used to anesthetize the area. A Triple lumen central line was introduced over a wire via the Seldinger technique, then sutured in place. Good blood flow was noted from all ports. The patient tolerated the procedure well. Chest x-ray was ordered to assess for pneumothorax and catheter placement. Complications: None Blood loss: Minimal GME ATTESTATION GME ATTESTATION My faculty preceptor for this patient encounter was physically present during the encounter and was fully available. All aspects of the patient interview, examination, medical decision making process, and medical care plan development were reviewed and approved by the faculty preceptor. The faculty preceptor is aware and concurs with the plan as stated in the body of this note and will attest to such by his/her cosignature. DONIS ESCALANTE DO Jul 16, 2018 14:32
[2018-07-16] MEDS ORDERED: FUROSEMIDE injection 250 MG in D5W 225 ML IV SCH (15:00)
--- NOTE | 2018-07-16 15:40 | HPEPDOC ---
General Date of Admission Jul 16, 2018 at 12:47 Primary Care Physician: Case Van Attending Physician: CHRISTIAN HOOPER DO Chief Complaint The patient is a 73-year-old female admitted with a reason for visit of Acute On Chronic Respiratory Failure W/ Hypoxia &. History of Present Illness 73-year-old female with significant past medical history as noted below, brought into the ER by her daughter and son-in-law after she found her on the floor this morning. Patient herself is a poor historian and per the family, she has been more confused since yesterday, and struggling to maintain her oxygen levels at home above 80% from the time she was discharged a few days ago. She is chronically on 3 L nasal cannula, and was recently discharged just 4 days ago on July 12 for a very similar presentation. On this prior admission, she was admitted for respiratory failure in the ICU on BiPAP. On discharge, she was to obtain BiPAP outpatient, but has not yet been able to. On time of admission, she verbalizes that she tripped over her oxygen tube, and is noted to have alternating stories where initially she stated per reports to EMS and family that she felt dizzy prior to falling, and now she denies such. She has no complaints at time of admission, but is noted to be consistently hypotensive with BP 80s/40s, and found on imaging to be in decompensated heart failure. Hospitalist was called to admit. Upon assessment, her ABG revealed severe respiratory acidosis with a PCO2 125. I spoke with Pulmonology, who recommended to start BiPAP at the settings she was on in the previous admission. Given her critical state, Dr. Pace and myself placed a central line to start pressor supports. She will be admitted to the ICU on pressors, Lasix drip, and BiPAP. Upon discussions with the daughter and son-in-law, they state that the patient has refused to officially fill on most form in the past. They state that the daughter and son are the healthcare proxy, and per previous discussions with her mother, she had stated that she would like all measures attempted, and clarified that she is indeed FULL CODE. Home Medications Scheduled Amlodipine Besylate (Amlodipine Besylate) 5 Mg Tablet, 5 MG PO DAILY, (Reported) Aspirin (Aspirin) 325 Mg Tab, 162.5 MG PO DAILY, (Reported) Atorvastatin Calcium (Atorvastatin Calcium) 80 Mg Tab, 80 MG PO DAILY, (Reported) Ferrous Sulfate (Ferrous Sulfate) 325 Mg Tab, 162.5 MG PO DAILY, (Reported) Fluticasone Propion/Salmeterol (Advair Hfa 230-21 Mcg Inhaler) 1 Aer Aer, 2 PUFF INH BID, (Reported) Furosemide (Lasix) 80 Mg Tab, 80 MG PO DAILY, (Reported) Loratadine (Loratadine) 10 Mg Tab, 10 MG PO DAILY, (Reported) Metoprolol Tartrate (Metoprolol Tartrate) 50 Mg Tab, 50 MG PO BID, (Reported) Multivitamins (Thera M Plus Tablet) 1 Tab Tab, 1 TAB PO DAILY, (Reported) Pantoprazole Sodium (Pantoprazole Sodium) 40 Mg Tablet.dr, 40 MG PO BID, (Reported) Quetiapine Fumarate (Quetiapine Fumarate) 25 Mg Tablet, 25 MG PO BID, (Reported) Sertraline HCl (Sertraline HCl) 100 Mg Tab, 100 MG PO DAILY, (Reported) Sitagliptin Phosphate (Januvia) 25 Mg Tab, 25 MG PO DAILY, (Reported) Tiotropium Elverta (Spiriva) 18 Mcg Cap, 1 INHALATION INH DAILY, (Reported) Venlafaxine HCl (Venlafaxine HCl ER) 75 Mg Capcr, 75 MG PO DAILY, (Reported) Scheduled PRN Acetaminophen (Tylenol Arthritis) 650 Mg Tab, 650 MG PO Q8H PRN for PAIN, (Reported) Allergies Coded Allergies: Penicillins (Unverified Allergy, Unknown, SWELLING, 07/08/18) erythromycin base (Unverified Allergy, Unknown, RASH, 07/16/18) metformin (Unverified Allergy, Unknown, UNKNOWN REACTION, 07/16/18) Past Medical History Medical History COPD, chronically on 3L NC LINDSAY noncompliant with CPAP History of colon cancer s/p partial resection over a decade ago CAD History of rheumatic fever Scarlet fever History of TB s/p treatment DM Diastolic CHF Hypertension Hyperlipidemia Depression CKD History of GI bleeds with transfusions Surgical History Tonsillectomy. Cholecystectomy. Multiple colonoscopies. Partial colon resection. Appendectomy. Umbilical hernia repair. Bilateral cataract surgery. Family History Mother with colon cancer and COPD Father with COPD Sister with colon cancer Sister with CAD Social History Previous smoker: 2 PPD for >50yrs. 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 Per the family: Constitutional: Denies fever, chills Skin: Denies any rashes or lesions Pulmonary: Progressively worsening dyspnea since discharge from hospital. Unsure of coughing or wheezing. State she has required more O2 Cardiac: Denies chest pain, palpitations. Unsure of orthopnea, PND, edema. Admit lightheadedness GI: Denies nausea, vomiting, abdominal pain MSK: Denies new body pains Neurologic: Admit increasing confusion and lethargy over the past 24hrs Physical Examination Other physical findings General exam: NAD,able to speak when prompted, but answers in simple 1-2 word answers. A&Ox3: able to verbalize correctly the year, location, and her name Eye exam: EOMI, anicteric sclera ENT: Atraumatic, normocephalic Neck: Supple, unable to assess JVD given body habitus Cardiac: RRR, normal S1 & S2, 2/6 systolic murmur Respiratory: b/l [employer] up chest, mild accessory muscle use. On 3L NC, no wheezing or rhonchi Abdomen: Protuberant, positive bowel sounds, soft, nontender, nondistended Extremity: 2-3+ pitting edema b/l LE. No calf tenderness Skin: pink, warm, dry, no visible rash or lesions Neuro: lethargic, differing stories throughout the exam, normal speech Vital Signs Vital Signs Date Time Temp Pulse Resp B/P (MAP) Pulse Ox O2 Delivery O2 Flow Rate FiO2 07/16/18 14:13 82 81/43 07/16/18 13:40 97 Nasal Cannula 3.0 07/16/18 10:22 20 07/16/18 09:46 97.9 Laboratory Data Labs 24H Laboratory Tests 2 07/16/18 10:19: Immature Granulocyte % (Auto) 0.6, White Blood Count 8.1, Red Blood Count 2.96L, Hemoglobin 8.9L, Hematocrit 30.9L, Mean Corpuscular Volume 104.4H, Mean Corpuscular Hemoglobin 30.1, Mean Corpuscular Hemoglobin Concent 28.8L, Red Cell Distribution Width 17.8H, Platelet Count 208, Neutrophils (%) (Auto) 78.8H, Lymphocytes (%) (Auto) 8.2L, Monocytes (%) (Auto) 10.6H, Eosinophils (%) (Auto) 1.1, Basophils (%) (Auto) 0.7, Neutrophils # (Auto) 6.3, Lymphocytes # (Auto) 0.7L, Monocytes # (Auto) 0.9H, Eosinophils # (Auto) 0.1, Basophils # (Auto) 0.1, Nucleated Red Blood Cells % (auto) 0.0, Anion Gap 4L, Glomerular Filtration Rate 33.2L, Lactic Acid Level 0.5, Calcium Level 8.7L, Aspartate Amino Transf (AST/SGOT) 23, Alanine Aminotransferase (ALT/SGPT) 30, Alkaline Phosphatase 99, Total Bilirubin 0.4, Direct Bilirubin < 0.1, Ammonia 22, Total Creatine Kinase 31, Creatine Kinase MB 3.0, Creatine Kinase MB Relative Index 8.39H, Troponin I < 0.02, Total Protein 6.3L, Albumin 3.2, Albumin/Globulin Ratio 1.03, Thyroid Stimulating Hormone (TSH) 4.300H, Free Thyroxine 0.82 07/16/18 10:41: Bedside Glucose (Misc Panel) 121H 07/16/18 12:31: Blood Gas Bicarbonate Standard 38.9H, Arterial Blood pH 7.189*L, Arterial Blood Partial Pressure CO2 125.5*H, Arterial Blood Partial Pressure O2 106.3H, Arterial Blood Total CO2 50.6H, Arterial Blood HCO3 46.8H, Arterial Blood Base Excess 15.1H, Arterial Blood Oxygen Saturation 97.8 07/16/18 14:24: CBC/BMP Laboratory Tests 07/16/18 10:19 Red Blood Count 2.96 L, Mean Corpuscular Volume 104.4 H, Mean Corpuscular Hemoglobin 30.1, Mean Corpuscular Hemoglobin Concent 28.8 L, Red Cell Distribution Width 17.8 H, Neutrophils (%) (Auto) 78.8 H, Lymphocytes (%) (Auto) 8.2 L, Monocytes (%) (Auto) 10.6 H, Eosinophils (%) (Auto) 1.1, Basophils (%) ( Auto) 0.7, Neutrophils # (Auto) 6.3, Lymphocytes # (Auto) 0.7 L, Monocytes # (Auto) 0.9 H, Eosinophils # (Auto) 0.1, Basophils # (Auto) 0.1 Assessment/Plan Acute on chronic respiratory failure, hypoxemic and hypercapnic likely 2/2 decompensated CHF, as well her oxygen being displaced from yesterday evening and into this am after she suffered a fall Patient baseline has COPD and chronically on 3L NC, and baseline moderate pulmonary htn. Per family, she has been satting in the 80s at home since previous discharge 4 days ago, which was also for similar presentation ABG on this admission reveals severe respiratory acidosis with PCO2 125 Pulmonology consulted, appreciate input. Per their recommendations, continue from previous BiPAP settings: 16/09 with FiO2 35 Closely monitor in ICU on BiPAP. Repeat ABGs pending Decompensated diastolic CHF Hypervolemic on exam with CXR confirming this Start Lasix drip with monitoring of bp Insert Farooq, Strict I's and O's, elevate head of bed, daily weights Last echo 07/19/2018: EF 60-65%, moderate pulmonary hypertension, grade 1 diastolic dysfunction Shock possibly cardiogenic 2/2 CHF/pulmonary edema PE is lower on differential given low Wells' score. DDimer pending. Lactate WNL. Unlikely pericardial tamponade, hemorrhage, dysrhythmia, DC, or infectious given clinical picture Dissection is low on differential, and pt unable to tolerate CT with contrast given baseline CKD. She does have hx of mitral insufficiency, which may be contributing to shock. Will await remaining bloodwork. Consider obtaining repeat echo to further assess possible acute change in valves F/U repeat cardiac markers & blood cx's BP persistently 80s/50s. Unable to maintain bp with fluids given her hypervolemic status from decompensated CHF, thus requiring pressor support. Titrate Levophed to maintain MAP> 65 MENG on CKD3 Likely 2/2 volume overload 1.6 on admission, above baseline 1.2 Expected to improve with diuresis. Monitor volume status LINDSAY noncompliant with CPAP Per family, was in process of setting up switching to BiPAP Hypertension Currently in shock on pressor support as mentioned above hold home antihypertensives History of GI bleeds Has required blood transfusions in the past Per ER report, Hemoccult on this admission was negative Her H&H appears to be around her baseline. No overt signs of bleeding. Monitor History of colon cancer s/p partial resection over a decade ago NIDDM 2 ISS replacing sitagliptin CAD/hyperlipidemia continue home ASA/statin History of rheumatic fever & Scarlet fever History of TB s/p treatment Depression Stable. Continue home Quetiapine and Sertraline and Venlafaxine GERD continue home protonix DVT ppx: heparin sc DISPO: admit to the hospitalist service, closely monitor in the ICU. Pulm consulted. Family has been updated on guarded prognosis and confirmed CODE STATUS and HCP as below. CODE STATUS: FULL CODE HCP: daughter and son Plan / VTE VTE Prophylaxis Ordered?: Yes GME ATTESTATION GME ATTESTATION My faculty preceptor for this patient encounter was physically present during the encounter and was fully available. All aspects of the patient interview, examination, medical decision making process, and medical care plan development were reviewed and approved by the faculty preceptor. The faculty preceptor is aware and concurs with the plan as stated in the body of this note and will attest to such by his/her cosignature. DONIS ESCALANTE DO Jul 16, 2018 15:35
[2018-07-16 16:22] LABS: ABG HCO3 37.1 MEQ/L (22.0-26.0); ABG O2 SATURATION 82.5 % (95.0-99.0); ABG STANDARD HCO3 32.5 MEQ/L (22.0-26.0); ABG TOTAL CO2 39.4 MEQ/L (23.0-31.0); ABG pH (ARTERIAL) 7.312 UNITS (7.350-7.450)
[2018-07-16 16:24] LABS: ABG PARTIAL PRESSURE CO2 75.1 mmHg (35.0-45.0); ABG PARTIAL PRESSURE O2 46.7 mmHg (75.0-100.0)
[2018-07-16] MEDS: FERROUS SULFATE 325MG TAB PO SCH (17:45)
[2018-07-16] MEDS: SERTRALINE 100 MG TAB PO SCH (17:45)
[2018-07-16] MEDS: ASPIRIN 325 MG TAB PO SCH (17:45)
[2018-07-16] MEDS: VENLAFAXINE **XR** 75MG CAPSULE PO SCH (17:45)
[2018-07-16] MEDS: MULTIVITAMINS/MINERALS THERAP 1 TAB PO SCH (17:45)
[2018-07-16] MEDS: ATORVASTATIN 20 MG TAB PO SCH (17:46)
[2018-07-16 18:19] LABS: ABG O2 SATURATION 91.6 % (95.0-99.0)
[2018-07-16 18:20] LABS: ABG BASE EXCESS 15.2 (-2.0-2.0); ABG HCO3 43.5 MEQ/L (22.0-26.0); ABG PARTIAL PRESSURE O2 58.8 mmHg (75.0-100.0); ABG STANDARD HCO3 38.9 MEQ/L (22.0-26.0); ABG TOTAL CO2 46.1 MEQ/L (23.0-31.0); ABG pH (ARTERIAL) 7.344 UNITS (7.350-7.450)
[2018-07-16 18:21] LABS: ABG PARTIAL PRESSURE CO2 81.8 mmHg (35.0-45.0)
[2018-07-16] MEDS: HumaLOG INSULIN (NovoLOG) PER UNIT SC SCH ×2 (18:40→21:00)
[2018-07-16 18:42] LABS: CALCIUM LEVEL 8.4 MG/DL (8.8-10.2); CREATININE FOR GFR 1.52 MG/DL (0.55-1.30); GLOMERULAR FILTRATION RATE 35.5 (>39); POTASSIUM SERUM 4.4 MEQ/L (3.5-5.1)
[2018-07-16 18:46] LABS: MB/CK RELATIVE INDEX 7.81 (< OR =4); TROPONIN I 0.02 NG/ML (< 0.10)
[2018-07-16] MEDS: PANTOPRAZOLE 40MG TAB (PROTONIX) PO SCH (21:00)
[2018-07-16] MEDS: QUEtiapine FUMARATE 25 MG TAB PO SCH (21:00)
[2018-07-16] MEDS: HEPARIN SOD (PORCINE) 5000 UNITS/ML VIAL SC SCH (21:19)
[2018-07-17] VITALS (36 sets, daily range): BP systolic 93–151; BP diastolic 51–68; O2SAT 90–100
[2018-07-17 02:20] LABS: CPK CREATINE PHOSPHOKINASE 19 U/L (26-192); MB/CK RELATIVE INDEX 6.84 (< OR =4); TROPONIN I < 0.02 NG/ML (< 0.10)
[2018-07-17] MEDS: HEPARIN SOD (PORCINE) 5000 UNITS/ML VIAL SC SCH ×3 (06:00→21:34)
[2018-07-17 06:25] LABS: HEMATOCRIT 26.8 % (36.0-47.0); HEMOGLOBIN 8.1 g/dl (12.0-15.5); MEAN CORPUSCULAR HEMOGLOBIN 30.1 pg (27.0-33.0); MEAN CORPUSCULAR HGB CONC 30.2 g/dl (32.0-36.5); MEAN CORPUSCULAR VOLUME 99.6 fl (80.0-96.0); PLATELET COUNT, AUTOMATED 175 10^3/uL (150-450); RED BLOOD COUNT 2.69 10^6/uL (4.00-5.40); WHITE BLOOD COUNT 6.4 10^3/uL (4.0-10.0)
[2018-07-17 07:13] LABS: CALCIUM LEVEL 8.2 MG/DL (8.8-10.2); CREATININE FOR GFR 1.52 MG/DL (0.55-1.30); GLOMERULAR FILTRATION RATE 35.5 (>39); MAGNESIUM LEVEL 1.5 MG/DL (1.8-2.4); POTASSIUM SERUM 3.4 MEQ/L (3.5-5.1)
--- NOTE | 2018-07-17 07:19 | ECGEPIP ---
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
[2018-07-17 08:13] LABS: ABG BASE EXCESS 14.9 (-2.0-2.0); ABG HCO3 40.8 MEQ/L (22.0-26.0); ABG PARTIAL PRESSURE O2 72.5 mmHg (75.0-100.0); ABG STANDARD HCO3 38.6 MEQ/L (22.0-26.0); ABG TOTAL CO2 42.7 MEQ/L (23.0-31.0); ABG pH (ARTERIAL) 7.448 UNITS (7.350-7.450)
[2018-07-17 08:17] LABS: ABG PARTIAL PRESSURE CO2 60.4 mmHg (35.0-45.0)
[2018-07-17] MEDS: FERROUS SULFATE 325MG TAB PO SCH (08:51)
[2018-07-17] MEDS: ATORVASTATIN 20 MG TAB PO SCH (08:51)
[2018-07-17] MEDS: SERTRALINE 100 MG TAB PO SCH (08:51)
[2018-07-17] MEDS: ASPIRIN 325 MG TAB PO SCH (08:51)
[2018-07-17] MEDS: MULTIVITAMINS/MINERALS THERAP 1 TAB PO SCH (08:51)
[2018-07-17] MEDS: QUEtiapine FUMARATE 25 MG TAB PO SCH ×2 (08:52→21:34)
[2018-07-17] MEDS: PANTOPRAZOLE 40MG TAB (PROTONIX) PO SCH ×2 (08:52→21:34)
[2018-07-17] MEDS: VENLAFAXINE **XR** 75MG CAPSULE PO SCH (08:53)
[2018-07-17] MEDS: HumaLOG INSULIN (NovoLOG) PER UNIT SC SCH ×4 (08:54→21:00)
[2018-07-17] MEDS ORDERED: POTASSIUM CHLORIDE 10 MEQ SR TABLET PO ONE ×2 (09:00)
[2018-07-17] MEDS ORDERED: MAGNESIUM OXIDE 400 MG TAB (MAG-OX) PO ONE ×2 (09:00)
--- NOTE | 2018-07-17 10:07 | CR ---
DATE OF CONSULTATION: 07/17/2018 ATTENDING PHYSICIAN: Dr. Delgado REASON FOR CONSULTATION: Acute on chronic respiratory failure, both hypoxemic and hypercapnic. HISTORY OF PRESENT ILLNESS: Ms. Rios is a 73-year-old female who was just recently discharged from the hospital on 07/12/2018 for a similar event. She was admitted yesterday, having been found down at home. She was having issues with worsening hypoxemia at home despite her usual 3 liters. She was brought to the emergency room (ER). Blood gas on admission showed a pH of 7.189, pCO2 125.5 and a pO2 of 106.3. She was placed on noninvasive support per my direction. Repeat gases showed a pH of 7.312, pCO2 down to 75 and pO2 of 46. Oxygen was titrated. She was also placed on an insulin drip per the primary service for a pro-BNP of 1190. She is unable to provide any other meaningful history and really does not recall much of yesterday's events. This morning, she is awake, alert and appropriate. She was able to be taken off BiPAP for her pills and a blood gas is pending. ALLERGIES: Listed as - PENICILLINS - ERYTHROMYCIN - METFORMIN HOME MEDICATIONS: - amlodipine 5 mg daily - aspirin 325 daily - atorvastatin 80 mg daily - iron sulfate 325 daily - Advair 230/21 two puffs twice a day - Lasix 80 mg daily - loratadine 10 mg daily - metoprolol 50 mg by mouth twice a day - multivitamin - pantoprazole 40 mg twice a day - Seroquel 25 mg twice a day - Zoloft 100 mg daily - Januvia 25 mg by mouth daily - Spiriva daily - Venlafaxine 75 mg daily PAST MEDICAL HISTORY: Significant for her advanced obstructive lung disease, obstructive sleep apnea (LINDSAY) with complete noncompliance with CPAP as an outpatient, remote history of colon cancer with resection, coronary artery disease, previous rheumatic fever, remote history of TB status post treatment, diabetes mellitus, diastolic heart failure, hypertension, hyperlipidemia, depression, chronic kidney disease, previous GI bleeds with transfusions. PAST SURGICAL HISTORY: She has had a cholecystectomy, tonsillectomy, colonoscopies, partial colectomy, appendectomy, herniorrhaphy, and cataract repair. FAMILY HISTORY: Mother had both colon cancer and obstructive lung disease. Father with obstructive lung disease. Sister with colon cancer. Sister with coronary artery disease. SOCIAL HISTORY: She is a reformed tobacco abuser, two packs per day for greater than 50 years, quit about 12 years. No regular alcohol. No significant occupational exposure. Lives in the [place] with family nearby. REVIEW OF SYSTEMS: Per the history of present illness (HPI) otherwise: Constitutional: Negative for any recent fevers or chills. HEENT: Unremarkable for double or blurry vision. Pulmonary: As per HPI. Cardiac: Unremarkable for any recent angina. GI: Significant for recent GI bleed. : Unremarkable for any recent dysuria or urgency. Neurologic: Significant for her recent confusion. Hematologic: Significant for anemia. Dermatologic: Unremarkable for rash or psoriasis. Musculoskeletal: Significant for chronic arthralgias and myalgias. Allergic/Immunologic: Unremarkable. Psychiatric: Significant for some depression. PHYSICAL EXAMINATION: Currently reveals a pleasant elderly female in no distress. Blood pressure 114/60. Heart rate in the 80s with a sinus mechanism. She is on a weaning dose of Levophed. HEENT: Otherwise normocephalic, atraumatic. Pupils do react. Trachea is midline. Chest shows a right subclavian line in place. Expansion diminished, but symmetric. There are inspiratory crackles at least 1/3 up each posterior field, but no wheeze or rhonchus. No other adventitious breath sounds are identified. Cardiac exam distant, generally regular. Peripheral pulses palpable. Trace to 1+ edema. Abdomen obese, soft with active bowel sounds. Scars consistent with previous surgery. No obvious organomegaly or masses. Extremities: Without cyanosis or clubbing. Neurologically, she is awake, alert and appropriate. Psychiatric: Normal mood and affect. Chest x-ray done yesterday does suggest some vascular congestion, especially dependently. No acute infiltrates. Other laboratories this morning show a sodium of 140, potassium 3.4, chloride 92, CO2 45, BUN 26, creatinine 1.52. White blood cell count 6.4, hemoglobin 8.1 and platelet count 175,000. Blood gas done this morning on noninvasive support I of 14, E of 6, rate of 8, FiO2 of 35%, has a pH of 7.448, pCO2 of 60.4, and pO2 of 72.5. IMPRESSION: 1. Acute on chronic respiratory failure, both hypoxemic and hypercapnic. 2. Obstructive sleep apnea with noncompliance. 3. Diastolic heart failure with elevated BNP. 4. Chronic anemia. 5. Chronic kidney disease. 6. Previous tobacco history. RECOMMENDATIONS: At this point, we will allow her off noninvasive support and get a blood gas to see how she does. Her mental status is much improved and she is comfortable. Certainly, if she has a pattern of repeat admissions this close together with respiratory failure, decision may need to be made regarding code status, especially if she still wishes to remain noncompliant with noninvasive therapy in the home setting. For now, we will continue as outlined above. Her prognosis remains guarded. In view of the above, there is a very high likelihood of further compromise. Further recommendations will be made in the progress record as new information becomes available.
[2018-07-17 10:40] LABS: ABG HCO3 47.6 MEQ/L (22.0-26.0); ABG O2 SATURATION 97.4 % (95.0-99.0); ABG pH (ARTERIAL) 7.398 UNITS (7.350-7.450)
[2018-07-17] MEDS: FUROSEMIDE injection 250 MG in D5W 225 ML IV SCH (12:44)
--- NOTE | 2018-07-17 13:21 | IPN ---
DATE OF VISIT: 07/17/2018 SUBJECTIVE: The patient is seen and examined in the room today. The patient is a little weak, able to answer some questions through her BiPAP. Denied any fever or chills. Denied any chest pain. The patient has no problem with the BiPAP. OBJECTIVE: Vital Signs: Temperature 98.4, pulse 97, respirations 20, blood pressure 93/64, pulse oximetry 94% on BiPAP with FiO2 of 35. General: Alert and awake, comfortable. HEENT: BiPAP mask in place. Normocephalic, atraumatic. Dry oral mucosa. Cardiovascular: Positive S1, S2, regular rate. Lungs: Positive lung crackle bilaterally. No significant wheezes appreciated. Abdomen: Soft. Nontender. Bowel sounds present. Extremities: 2+ pitting edema bilaterally. LABORATORY DATA: WBC 6.4, hemoglobin 8.1, hematocrit 26.8, platelet count 175. Sodium 140, potassium 3.4, chloride 92, carbon dioxide 45, BUN 26, creatinine 1.52, GFR 35.5, fasting glucose 162, calcium 8.2, magnesium 1.5. ASSESSMENT AND PLAN: 1. Acute on chronic hypoxic hypercapnic respiratory failure. Recent admission for similar episode. The patient was discharged home without BiPAP. The patient was to follow with her primary care provider for repeat sleep study and in order for her to get the BiPAP, however, the patient stated her primary care provider was not able to see her earlier. The patient has been placed on BiPAP since admission. The patient stated her breathing is improving. Pulmonary consult appreciated, Dr. Altamirano, for the BiPAP management. Clinically, the patient demonstrates significant signs of fluid overload. The patient is currently on Lasix drip. Farooq catheter in place. Continue diuresis as tolerated. 2. Shock. Suspect cardiac in origin. Patient has been on Levophed pressor since admission. The patient shows clinical improvement. Will continue titrating the Levophed dosage with holding parameter. Currently, MAP is greater than 65. 3. Acute on chronic kidney disease. Suspect due to fluid overload and hypotension. The patient has been on pressors. The patient is on diuretic. Renal function is improving. 4. Obstructive sleep apnea, noncompliant with CPAP. The patient needs BiPAP, however, patient was not able to get the repeat outpatient study performed in a timely manner. We may need to arrange the sleep study on the day of discharge in order to prevent further recurrence of the symptoms. 5. Hypertension. Currently the patient is on pressor for the shock. 6. History of GI bleed. The patient was previously hospitalized at [facility]. The patient had a blood transfusion. No sign of active bleeding at this moment. Continue to monitor the patient's symptoms and blood counts. 7. History of colon cancer, status post partial resection. 8. Diastolic congestive heart failure exacerbation. On Lasix drip. Farooq catheter in place, monitoring of input and output and daily weight. The patient had a recent echocardiogram performed on 05/11/2018 on the last admission. The patient was found to have a grade I diastolic dysfunction and normal ejection fraction (EF). 9. History of rheumatic fevers. 10. The patient has history of tuberculosis status post treatment. 11. Diabetes. Sliding scale. Consistent carbohydrate diet. 12. Elevated D-Dimer. Patient has acute on chronic renal disease and unable to tolerate CT angiogram. Unfortunately, we do not have capacity for V/Q scan at this moment. Will continue to monitor the patient. 13. Moderate pulmonary hypertension. The patient has chronic obstructive sleep apnea without treatment. Currently the patient is on diuretic. Continue to monitor the patient. 14. History of coronary artery disease. On aspirin and Lipitor. 15. Depression. On Zoloft and Effexor. 16. Deep vein thrombosis (DVT) prophylaxis. On heparin.
[2018-07-17] MEDS: NOREPINEPHRINE BITARTRATE 16 MG in D5W 484 ML IV SCH (14:30)
[2018-07-18] VITALS (21 sets, daily range): BP systolic 91–158; BP diastolic 55–97; O2SAT 91–95
[2018-07-18] MEDS ORDERED: MAG SULF 1GM/100ML (MAG RUN) 1 GM in APPROPRIATE DILUENT 1 EA IV ONE (01:00)
[2018-07-18 01:04] LABS: CALCIUM LEVEL 8.1 MG/DL (8.8-10.2); CREATININE FOR GFR 1.53 MG/DL (0.55-1.30); GLOMERULAR FILTRATION RATE 35.2 (>39); MAGNESIUM LEVEL 1.7 MG/DL (1.8-2.4); POTASSIUM SERUM 3.4 MEQ/L (3.5-5.1)
[2018-07-18 04:57] LABS: HEMATOCRIT 25.9 % (36.0-47.0); HEMOGLOBIN 7.8 g/dl (12.0-15.5); MEAN CORPUSCULAR HEMOGLOBIN 30.2 pg (27.0-33.0); MEAN CORPUSCULAR HGB CONC 30.1 g/dl (32.0-36.5); MEAN CORPUSCULAR VOLUME 100.4 fl (80.0-96.0); PLATELET COUNT, AUTOMATED 133 10^3/uL (150-450); RED BLOOD COUNT 2.58 10^6/uL (4.00-5.40)
[2018-07-18 05:39] LABS: BLOOD UREA NITROGEN 24 MG/DL (7-18); CALCIUM LEVEL 8.3 MG/DL (8.8-10.2); CARBON DIOXIDE LEVEL 54 MEQ/L (21-32); CHLORIDE LEVEL 88 MEQ/L (98-107); CREATININE FOR GFR 1.46 MG/DL (0.55-1.30); GLOMERULAR FILTRATION RATE 37.2 (>39); GLUCOSE, FASTING 141 MG/DL (70-100); MAGNESIUM LEVEL 1.9 MG/DL (1.8-2.4); POTASSIUM SERUM 3.2 MEQ/L (3.5-5.1); SODIUM LEVEL 141 MEQ/L (136-145)
[2018-07-18] MEDS: HEPARIN SOD (PORCINE) 5000 UNITS/ML VIAL SC SCH (05:44)
[2018-07-18] MEDS ORDERED: POTASSIUM CHLORIDE 10 MEQ SR TABLET PO ONE ×3 (06:30→08:00)
[2018-07-18] MEDS: HumaLOG INSULIN (NovoLOG) PER UNIT SC SCH ×4 (08:33→20:36)
[2018-07-18] MEDS: KCL 10MEQ/100ML SWI (KRUN) 10 MEQ in APPROPRIATE DILUENT 1 EA IV SCH ×2 (08:33→09:41)
[2018-07-18] MEDS: MULTIVITAMINS/MINERALS THERAP 1 TAB PO SCH (08:34)
[2018-07-18] MEDS: PANTOPRAZOLE 40MG TAB (PROTONIX) PO SCH ×2 (08:34→20:36)
[2018-07-18] MEDS: SERTRALINE 100 MG TAB PO SCH (08:34)
[2018-07-18] MEDS: VENLAFAXINE **XR** 75MG CAPSULE PO SCH (08:34)
[2018-07-18] MEDS: ATORVASTATIN 20 MG TAB PO SCH (08:34)
[2018-07-18] MEDS: FERROUS SULFATE 325MG TAB PO SCH (08:34)
[2018-07-18] MEDS: ASPIRIN 325 MG TAB PO SCH (08:34)
[2018-07-18] MEDS: QUEtiapine FUMARATE 25 MG TAB PO SCH ×2 (08:34→20:36)
[2018-07-18 18:17] LABS: HEMATOCRIT 27.8 % (36.0-47.0); HEMOGLOBIN 8.1 g/dl (12.0-15.5); MEAN CORPUSCULAR HEMOGLOBIN 29.6 pg (27.0-33.0); MEAN CORPUSCULAR HGB CONC 29.1 g/dl (32.0-36.5); MEAN CORPUSCULAR VOLUME 101.5 fl (80.0-96.0); PLATELET COUNT, AUTOMATED 148 10^3/uL (150-450); RED BLOOD COUNT 2.74 10^6/uL (4.00-5.40); WHITE BLOOD COUNT 3.8 10^3/uL (4.0-10.0)
--- NOTE | 2018-07-18 19:06 | IPNPDOC ---
Text Note Date of Service The patient was seen on 07/18/18. NOTE SUBJECTIVE: The patient is seen and examined in the room today. Patient denies acute complain. She tolerated BiPAP overnight without issue. Denies fever or chill. Patient has had good response to diuretic. 7 Beats of V tach was noted on telemetry. Patient was asymptomatic at the time. OBJECTIVE: Vital Signs: Listed below. General: Alert and awake, comfortable. HEENT: BiPAP mask in place. Normocephalic, atraumatic. Dry oral mucosa. Cardiovascular: Positive S1, S2, tachycardic Lungs: Positive lung crackle bilaterally. No significant wheezes appreciated. Abdomen: Soft. Nontender. Bowel sounds present. Extremities: 2+ pitting edema bilaterally. LABORATORY DATA: Listed below. ASSESSMENT AND PLAN: #. Acute on chronic hypoxic hypercapnic respiratory failure. - Recent admission for similar episode. The patient was discharged home without BiPAP. The patient was to follow with her primary care provider for repeat sleep study and in order for her to get the BiPAP, however, the patient stated her primary care provider was not able to see her earlier. - Pulmonology consulted. BiPAP restarted since admission. Patient may benefit from sleep study on the day of discharge. - Clinically, the patient demonstrates significant signs of fluid overload. Farooq catheter in place. S/P Lasix drip. On IV lasix. #. Shock. - Suspect cardiac in origin. Central line placed. S/P Levophed pressor. MAP has been greater than 65. #. Diastolic congestive heart failure exacerbation. - S/P Lasix drip. Farooq catheter in place, monitoring of input and output and daily weight. On IV lasix. - The patient had a recent echocardiogram performed on 05/11/2018 on the last admission. The patient was found to have a grade I diastolic dysfunction and normal ejection fraction (EF). #. Acute on chronic kidney disease. - Suspect due to fluid overload and hypotension. The patient is on diuretic. Renal function is improving. - UA is negative. #. Obstructive sleep apnea, - History of noncompliance with CPAP. The patient needs BiPAP. #. Hypertension. - Blood pressure medication is on hold due to shock. #. History of GI bleed. - The patient was previously hospitalized at [facility] from 06/18/18 to 06/27/18 for symptomatic anemia with hgb of 4.9. EGD and colonoscopy performed. The patient had blood transfusions. No sign of active bleeding at this moment. Continue to monitor the patient's symptoms and blood counts. #. History of colon cancer - status post partial resection. #. History of rheumatic fevers. #. History of tuberculosis status post treatment. #. Diabetes. Sliding scale. Consistent carbohydrate diet. #. Elevated D-Dimer. - Patient has acute on chronic renal disease and unable to tolerate CT angio gram. Unfortunately, we do not have capacity for V/Q scan at this moment. Will continue to monitor the patient. #. Moderate pulmonary hypertension. - The patient has chronic obstructive sleep apnea without treatment. Currently the patient is on diuretic. Continue to monitor the patient. #. History of coronary artery disease. On aspirin and Lipitor. #. Depression. On Zoloft and Effexor. #. Deep vein thrombosis (DVT) prophylaxis. On heparin. VS,Fishbone, I+O VS, Fishbone, I+O Laboratory Tests 07/18/18 00:04 Calcium Level 8.1 L 07/18/18 04:44 Calcium Level 8.3 L, Red Blood Count 2.58 L, Mean Corpuscular Volume 100.4 H, Mean Corpuscular Hemoglobin 30.2, Mean Corpuscular Hemoglobin Concent 30.1 L, Red Cell Distribution Width 17.9 H Vital Signs Date Time Temp Pulse Resp B/P (MAP) Pulse Ox O2 Delivery O2 Flow Rate FiO2 07/18/18 16:00 3.0 07/18/18 15:00 102 143/61 (88) 98 35 07/18/18 12:00 97.6 22 07/18/18 05:00 BIPAP/CPAP I&O- Last 24 Hours up to 6 AM 07/18/18 06:00 Intake Total 1780 ml Output Total 2975 ml Balance -1195 ml CHRISTIAN HOOPER DO Jul 18, 2018 19:06
[2018-07-18 19:16] LABS: BLOOD UREA NITROGEN 24 MG/DL (7-18); CALCIUM LEVEL 8.5 MG/DL (8.8-10.2); CHLORIDE LEVEL 91 MEQ/L (98-107); CREATININE FOR GFR 1.66 MG/DL (0.55-1.30); GLOMERULAR FILTRATION RATE 32.1 (>39); GLUCOSE, FASTING 174 MG/DL (70-100); MAGNESIUM LEVEL 1.8 MG/DL (1.8-2.4); SODIUM LEVEL 140 MEQ/L (136-145)
[2018-07-18 19:18] LABS: CARBON DIOXIDE LEVEL 55 MEQ/L (21-32)
[2018-07-19] VITALS (12 sets, daily range): BP systolic 132–184; BP diastolic 59–69; O2SAT 91–95
[2018-07-19] MEDS: FUROSEMIDE 100 MG/10 ML VIAL (J1940) IV SCH ×2 (00:08→08:14)
[2018-07-19 04:17] LABS: HEMATOCRIT 27.4 % (36.0-47.0); HEMOGLOBIN 8.1 g/dl (12.0-15.5); MEAN CORPUSCULAR HEMOGLOBIN 30.2 pg (27.0-33.0); MEAN CORPUSCULAR HGB CONC 29.6 g/dl (32.0-36.5); MEAN CORPUSCULAR VOLUME 102.2 fl (80.0-96.0); PLATELET COUNT, AUTOMATED 135 10^3/uL (150-450); RED BLOOD COUNT 2.68 10^6/uL (4.00-5.40); WHITE BLOOD COUNT 4.1 10^3/uL (4.0-10.0)
[2018-07-19 05:38] LABS: CALCIUM LEVEL 8.6 MG/DL (8.8-10.2); CREATININE FOR GFR 1.62 MG/DL (0.55-1.30); MAGNESIUM LEVEL 1.7 MG/DL (1.8-2.4); POTASSIUM SERUM 3.9 MEQ/L (3.5-5.1)
[2018-07-19] MEDS ORDERED: MAG SULF 1GM/100ML (MAG RUN) 1 GM in APPROPRIATE DILUENT 1 EA IV ONE (07:30)
[2018-07-19] MEDS: HumaLOG INSULIN (NovoLOG) PER UNIT SC SCH ×4 (08:13→21:00)
[2018-07-19] MEDS: ASPIRIN 325 MG TAB PO SCH (08:14)
[2018-07-19] MEDS: FERROUS SULFATE 325MG TAB PO SCH (08:14)
[2018-07-19] MEDS: MULTIVITAMINS/MINERALS THERAP 1 TAB PO SCH (08:14)
[2018-07-19] MEDS: ATORVASTATIN 20 MG TAB PO SCH (08:14)
[2018-07-19] MEDS: SERTRALINE 100 MG TAB PO SCH (08:14)
[2018-07-19] MEDS: VENLAFAXINE **XR** 75MG CAPSULE PO SCH (08:15)
[2018-07-19] MEDS: QUEtiapine FUMARATE 25 MG TAB PO SCH ×2 (08:15→21:40)
[2018-07-19] MEDS: PANTOPRAZOLE 40MG TAB (PROTONIX) PO SCH ×2 (08:15→21:40)
--- NOTE | 2018-07-19 14:02 | IPNPDOC ---
Date Seen The patient was seen on 07/19/18. Progress Note SUBJECTIVE: Patient reports feeling well today she tells me she does not have any shortness of breath she is approaching her baseline she has no complaints. She tells me she is eager to go home to cats OBJECTIVE PHYSICAL EXAMINATION: VITAL SIGNS: Please see below. GENERAL: Pleasant elderly female sitting in a chair she does not appear to be in any acute distress she is awake alert oriented 3 HEENT: Cranial nerves II through XII grossly intact she is wearing foam dressing over her nasal bridge CARDIOVASCULAR: [ S1-S2 she is mildly tachycardic noticed heart sounds appreciated. RESPIRATORY: Diminished breath sounds at the left base but otherwise fairly good air movement throughout. ABDOMINAL: Bowel sounds present and soft and nontender EXTREMITIES: No clubbing cyanosis or appreciable edema LABORATORY DATA, IMAGING STUDIES, MICROBIOLOGY: Please see below. DVT prophylaxis ordered?: Heparin ASSESSMENT AND PLAN: This is a 73-year-old female with acute on chronic hypoxic/hypercarbic respiratory failure. 1. Acute on chronic hypoxic hypercapnic respiratory failure:Readmit after a short stay at home. The patient was discharged home without BiPAP. I did speak with Dr. Altamirano pulmonary was likely try the patient on tabletop today she will need some assistance with her sleep apnea time of discharge in order to prevent third admission. Likely secondary to untreated and noncompliant LINDSAY. There may be an element of pulmonary edema at this time she does appear to be fairly euvolemic I will decrease her diuresis back to her home by mouth dosing. She likely has a degree of underlying lung disease she is normally on Advair as previously home which I'll resume at this time 2. Shock:Suspect cardiac in origin. Appears to be resolved she is not requiring any pressor support at this time 3. Diastolic congestive heart failure exacerbation: As outlined above I'll transition her back to her home diuretic and discontinue her Farooq catheter, The patient had a recent echocardiogram performed on 05/11/2018 on the last admission. The patient was found to have a grade I diastolic dysfunction and normal ejection fraction (EF). 4.chronic kidney disease: Cr stable at 1.6m that appears to be about baseline 5. Obstructive sleep apnea: History of noncompliance with CPAP. The patient needs BiPAP. I did discuss goals of care with the patient today she will wishes to remain a full code and tells me she will be compliant moving forward 6. Hypertension: Was initially hypotensive however at this time her blood pressures normalizing at should she become hypertensive would restart her home medications 7. History of GI bleed.: No evidence of active bleeding she was recently hospitalized last month for symptom medic anemia she had upper and lower scopes completed at that time hemoglobin is stable 8. Diabetes. Sliding scale. Consistent carbohydrate diet. 9. Elevated D-Dimer: Patient has numerous etiologies while she is in respiratory failure however I do not feel the need to seek out a pulmonary embolism for being any additional etiology hypoxic is resolving for the time of her admission as is her respiratory status improving without treatment for PE see no reason to seek out this diagnosis any further 10. History of coronary artery disease. On aspirin and Lipitor. Her home beta blockers currently on hold 11. Depression. On Zoloft and Effexor. Disposition: Pending PT OT tomorrow as well as tolerance of tabletop and outpatient plan for obstructive sleep apnea VS, I&O, 24H, Fishbone Vital Signs/I&O Vital Signs Date Time Temp Pulse Resp B/P (MAP) Pulse Ox O2 Delivery O2 Flow Rate FiO2 07/19/18 07:47 2.0 07/19/18 07:26 99.2 103 22 157/66 (96) 95 07/19/18 06:00 35 07/19/18 04:00 BIPAP/CPAP I&O- Last 24 Hours up to 6 AM 07/19/18 06:00 Intake Total 480 ml Output Total 2110 ml Balance -1630 ml Laboratory Data 24H LABS Laboratory Tests 2 07/18/18 17:10: Bedside Glucose (Misc Panel) 106 07/18/18 18:02: Nucleated Red Blood Cells % (auto) 0.0, Anion Gap , Glomerular Filtration Rate 32.1L, Blood Urea Nitrogen 24H, Creatinine 1.66H, Sodium Level 140, Potassium Level 4.0#, Chloride Level 91L, Carbon Dioxide Level 55H, Calcium Level 8.5L, Magnesium Level 1.8, FO-Kgc-[id number]-Type Natriuretic Peptide 508H 07/18/18 20:03: Bedside Glucose (Misc Panel) 176H 07/19/18 04:09: Nucleated Red Blood Cells % (auto) 0.0, Anion Gap 2L, Glomerular Filtration Rate 33.0L, Blood Urea Nitrogen 24H, Creatinine 1.62H, Sodium Level 141, Potassium Level 3.9, Chloride Level 90L, Carbon Dioxide Level 49H, Calcium Level 8.6L, Magnesium Level 1.7L 07/19/18 11:51: Bedside Glucose (Misc Panel) 232H CBC/BMP Laboratory Tests 07/18/18 18:02 Red Blood Count 2.74 L, Mean Corpuscular Volume 101.5 H, Mean Corpuscular Hemoglobin 29.6, Mean Corpuscular Hemoglobin Concent 29.1 L, Red Cell Distribution Width 17.8 H, Calcium Level 8.5 L 07/19/18 04:09 Red Blood Count 2.68 L, Mean Corpuscular Volume 102.2 H, Mean Corpuscular Hemoglobin 30.2, Mean Corpuscular Hemoglobin Concent 29.6 L, Red Cell Distribution Width 17.9 H, Calcium Level 8.6 L Microbiology Microbiology 07/16/18 Blood Culture - Preliminary, Resulted No Growth after 48 hours. All Specime... 07/16/18 Blood Culture - Preliminary, Resulted No Growth after 48 hours. All Specime... MARIANA QIU MD Jul 19, 2018 14:02
[2018-07-19] MEDS: HEPARIN SOD (PORCINE) 5000 UNITS/ML VIAL SQ SCH (21:39)
[2018-07-20] VITALS (17 sets, daily range): BP systolic 84–164; BP diastolic 53–83
[2018-07-20 05:37] LABS: HEMOGLOBIN 8.1 g/dl (12.0-15.5); MEAN CORPUSCULAR HEMOGLOBIN 30.2 pg (27.0-33.0); MEAN CORPUSCULAR HGB CONC 28.9 g/dl (32.0-36.5); MEAN CORPUSCULAR VOLUME 104.5 fl (80.0-96.0); PLATELET COUNT, AUTOMATED 141 10^3/uL (150-450); RED BLOOD COUNT 2.68 10^6/uL (4.00-5.40); WHITE BLOOD COUNT 8.2 10^3/uL (4.0-10.0)
[2018-07-20 06:25] LABS: CALCIUM LEVEL 8.4 MG/DL (8.8-10.2); CREATININE FOR GFR 1.76 MG/DL (0.55-1.30); MAGNESIUM LEVEL 2.2 MG/DL (1.8-2.4); POTASSIUM SERUM 4.2 MEQ/L (3.5-5.1)
[2018-07-20] MEDS: HumaLOG INSULIN (NovoLOG) PER UNIT SC SCH ×4 (07:42→20:31)
[2018-07-20] MEDS: PANTOPRAZOLE 40MG TAB (PROTONIX) PO SCH ×2 (07:43→20:30)
[2018-07-20] MEDS: MULTIVITAMINS/MINERALS THERAP 1 TAB PO SCH (07:43)
[2018-07-20] MEDS: HEPARIN SOD (PORCINE) 5000 UNITS/ML VIAL SQ SCH ×2 (07:43→20:31)
[2018-07-20] MEDS: QUEtiapine FUMARATE 25 MG TAB PO SCH ×2 (07:44→20:30)
[2018-07-20] MEDS: VENLAFAXINE **XR** 75MG CAPSULE PO SCH (07:44)
[2018-07-20] MEDS: ASPIRIN 325 MG TAB PO SCH (07:44)
[2018-07-20] MEDS: FUROSEMIDE 80 MG TAB PO SCH (07:45)
[2018-07-20] MEDS: SERTRALINE 100 MG TAB PO SCH (07:45)
[2018-07-20] MEDS: FERROUS SULFATE 325MG TAB PO SCH (07:45)
[2018-07-20] MEDS: ATORVASTATIN 20 MG TAB PO SCH (07:46)
--- NOTE | 2018-07-20 09:56 | IPNPDOC ---
Date Seen The patient was seen on 07/20/18. Progress Note SUBJECTIVE: Patient reports feeling well today she denies palpitations lightheadedness chest pressure nausea vomiting or diarrhea. She tells me that her breathing is improved and she has no complaints at this time otherwise he OBJECTIVE PHYSICAL EXAMINATION: VITAL SIGNS: Please see below. GENERAL: Pleasant elderly sleeping comfortably in bed lying on her right side she does not appear to be in any acute distress she is awake alert oriented 3 accessory muscle use. He had complete sentences HEENT: Cranial nerves II through XII grossly intact she is wearing foam dressing over her nasal bridge CARDIOVASCULAR: S1-S2 she is tachycardic to a 3 systolic ejection murmur RESPIRATORY: Diminished breath sounds at the left base but otherwise fairly good air movement throughout. ABDOMINAL: Bowel sounds present and soft and nontender EXTREMITIES: No clubbing cyanosis or appreciable edema LABORATORY DATA, IMAGING STUDIES, MICROBIOLOGY: Please see below. DVT prophylaxis ordered?: Heparin ASSESSMENT AND PLAN: This is a 73-year-old female with acute on chronic hypoxic/hypercarbic respiratory failure. 1. Acute on chronic hypoxic hypercapnic respiratory failure:Readmit after a short stay at home. The patient was discharged home without BiPAP. I did speak with Dr. Altamirano patient did quite well on it tabletop last night it would seem I suspect she will need some assistance with her sleep apnea in regards to a new machine at the time of discharge in order to prevent third admission. Likely secondary to untreated and noncompliant LINDSAY. There may have be an element of pul monary edema at the time she does appear to be fairly euvolemic and as such she is back to her home by mouth dosing of Lasix. Her baseline is 4 L of continuous O2 all the time currently she is almost 100% on 5 L I suspect she could tolerate being weaned down to 4 L 2. Shock:Suspected cardiac in origin. Appears to be resolved she is not requiring any pressor support at this time he is doing quite well, she is mildly tachycardic I will check an EKG to confirm her rhythm 3. Diastolic congestive heart failure exacerbation: As outlined above I have transitioned her back to her home diuretic and discontinued her Farooq catheter, The patient had a recent echocardiogram performed on 05/11/2018 on the last admission. The patient was found to have a grade I diastolic dysfunction and normal ejection fraction (EF). 4.chronic kidney disease: Cr stable at 1.6m that appears to be about baseline 5. Obstructive sleep apnea: History of noncompliance with CPAP. The patient needs BiPAP. I did discuss goals of care with the patient today she will wishes to remain a full code and tells me she will be compliant moving forward 6. Hypertension: Was initially hypotensive however at this time her blood pressures normalizing at should she become hypertensive would restart her home medications 7. History of GI bleed.: No evidence of active bleeding she was recently hospitalized last month for symptom medic anemia she had upper and lower scopes completed at that time hemoglobin is stable 8. Diabetes. Sliding scale. Consistent carbohydrate diet. 9. Elevated D-Dimer: Patient has numerous etiologies while she is in respiratory failure however I do not feel the need to seek out a pulmonary embolism for being any additional etiology hypoxic is resolving she is AT her baseline for the time of her admission, her respiratory status improving without treatment for PE see no reason to seek out this diagnosis any further 10. History of coronary artery disease. On aspirin and Lipitor. Her home beta blockers currently on hold 11. Depression. On Zoloft and Effexor. Disposition: Pending PT OT. And outpatient plan for obstructive sleep apnea VS, I&O, 24H, Fishbone Vital Signs/I&O Vital Signs Date Time Temp Pulse Resp B/P (MAP) Pulse Ox O2 Delivery O2 Flow Rate FiO2 07/20/18 08:00 5.0 07/20/18 08:00 99.9 114 28 145/63 (90) 99 07/19/18 06:00 35 07/19/18 04:00 BIPAP/CPAP I&O- Last 24 Hours up to 6 AM 07/20/18 06:00 Intake Total 736 ml Output Total 700 ml Balance 36 ml Laboratory Data 24H LABS Laboratory Tests 2 07/19/18 11:51: Bedside Glucose (Misc Panel) 232H 07/19/18 17:41: Bedside Glucose (Misc Panel) 143H 07/19/18 21:28: Bedside Glucose (Misc Panel) 158H 07/20/18 05:16: Nucleated Red Blood Cells % (auto) 0.0, Anion Gap 4L, Glomerular Filtration Rate 30.0L, Blood Urea Nitrogen 34H, Creatinine 1.76H, Sodium Level 141, Potassium Level 4.2, Chloride Level 92L, Carbon Dioxide Level 45H, Calcium Level 8.4L, Magnesium Level 2.2 07/20/18 07:24: Bedside Glucose (Misc Panel) 177H CBC/BMP Laboratory Tests 07/20/18 05:16 Red Blood Count 2.68 L, Mean Corpuscular Volume 104.5 H, Mean Corpuscular Hemoglobin 30.2, Mean Corpuscular Hemoglobin Concent 28.9 L, Red Cell Distribution Width 18.0 H, Calcium Level 8.4 L Microbiology Microbiology 07/16/18 Blood Culture - Preliminary, Resulted No Growth after 72 hours. All specime... 07/16/18 Blood Culture - Preliminary, Resulted No Growth after 72 hours. All specime... MARIANA QIU MD Jul 20, 2018 09:56
[2018-07-20 10:21] LABS: ABG BASE EXCESS 24.7 (-2.0-2.0); ABG HCO3 56.2 MEQ/L (22.0-26.0); ABG O2 SATURATION 94.5 % (95.0-99.0); ABG PARTIAL PRESSURE O2 80.9 mmHg (75.0-100.0); ABG STANDARD HCO3 49.3 MEQ/L (22.0-26.0); ABG TOTAL CO2 60.2 MEQ/L (23.0-31.0); ABG pH (ARTERIAL) 7.261 UNITS (7.350-7.450)
[2018-07-20 10:30] LABS: ABG PARTIAL PRESSURE CO2 127.9 mmHg (35.0-45.0)
[2018-07-20 11:51] LABS: ABG BASE EXCESS 20.5 (-2.0-2.0); ABG HCO3 48.6 MEQ/L (22.0-26.0); ABG O2 SATURATION 92.6 % (95.0-99.0); ABG PARTIAL PRESSURE O2 65.8 mmHg (75.0-100.0); ABG STANDARD HCO3 44.5 MEQ/L (22.0-26.0); ABG TOTAL CO2 51.2 MEQ/L (23.0-31.0); ABG pH (ARTERIAL) 7.385 UNITS (7.350-7.450)
[2018-07-20 11:55] LABS: ABG PARTIAL PRESSURE CO2 83.1 mmHg (35.0-45.0)
[2018-07-20] MEDS: IPRATROPIUM 0.5MG/ALBUTEROL 2.5MG INH SOL UD 3ML (DUONEB)(J7620) NEB PRN (22:37)
[2018-07-21] VITALS (20 sets, daily range): BP systolic 83–176; BP diastolic 48–94; O2SAT 93–96
[2018-07-21 05:21] LABS: HEMATOCRIT 26.2 % (36.0-47.0); HEMOGLOBIN 7.5 g/dl (12.0-15.5); MEAN CORPUSCULAR HEMOGLOBIN 30.2 pg (27.0-33.0); MEAN CORPUSCULAR HGB CONC 28.6 g/dl (32.0-36.5); MEAN CORPUSCULAR VOLUME 105.6 fl (80.0-96.0); PLATELET COUNT, AUTOMATED 129 10^3/uL (150-450); RED BLOOD COUNT 2.48 10^6/uL (4.00-5.40); WHITE BLOOD COUNT 5.5 10^3/uL (4.0-10.0)
[2018-07-21 05:53] LABS: CALCIUM LEVEL 8.5 MG/DL (8.8-10.2); CREATININE FOR GFR 1.97 MG/DL (0.55-1.30); GLOMERULAR FILTRATION RATE 26.3 (>39); MAGNESIUM LEVEL 2.4 MG/DL (1.8-2.4); POTASSIUM SERUM 4.1 MEQ/L (3.5-5.1)
[2018-07-21] MEDS: ASPIRIN 325 MG TAB PO SCH (08:19)
[2018-07-21] MEDS: HumaLOG INSULIN (NovoLOG) PER UNIT SC SCH ×4 (08:19→20:53)
[2018-07-21] MEDS: FUROSEMIDE 80 MG TAB PO SCH (08:20)
[2018-07-21] MEDS: QUEtiapine FUMARATE 25 MG TAB PO SCH ×2 (08:20→20:39)
[2018-07-21] MEDS: SERTRALINE 100 MG TAB PO SCH (08:20)
[2018-07-21] MEDS: PANTOPRAZOLE 40MG TAB (PROTONIX) PO SCH ×2 (08:21→20:39)
[2018-07-21] MEDS: VENLAFAXINE **XR** 75MG CAPSULE PO SCH (08:21)
[2018-07-21] MEDS: FERROUS SULFATE 325MG TAB PO SCH (08:21)
[2018-07-21] MEDS: ATORVASTATIN 20 MG TAB PO SCH (08:21)
[2018-07-21] MEDS: MULTIVITAMINS/MINERALS THERAP 1 TAB PO SCH (08:21)
[2018-07-21] MEDS: HEPARIN SOD (PORCINE) 5000 UNITS/ML VIAL SQ SCH ×2 (08:22→20:39)
[2018-07-21 08:53] LABS: ABG BASE EXCESS 16.9 (-2.0-2.0); ABG O2 SATURATION 98.1 % (95.0-99.0); ABG PARTIAL PRESSURE O2 111.7 mmHg (75.0-100.0); ABG STANDARD HCO3 40.7 MEQ/L (22.0-26.0); ABG TOTAL CO2 48.9 MEQ/L (23.0-31.0); ABG pH (ARTERIAL) 7.303 UNITS (7.350-7.450)
[2018-07-21 08:59] LABS: ABG PARTIAL PRESSURE CO2 94.9 mmHg (35.0-45.0)
--- NOTE | 2018-07-21 13:38 | IPNPDOC ---
Date Seen The patient was seen on 07/21/18. Progress Note SUBJECTIVE: Patient tells me she is breathing better with "the mask" she is awake an oriented at this time. She denies complaints and tells me she wants to take it off at times and admits she has been inconsistent with wearing it even while here in the ICU OBJECTIVE PHYSICAL EXAMINATION: VITAL SIGNS: Please see below. GENERAL: Pleasant elderly sitting up in bed lying she does not appear to be in any acute distress accompanied by daughter and son in law HEENT: Cranial nerves II through XII grossly intact she is wearing foam dressing over her nasal bridge CARDIOVASCULAR: S1-S2 she is tachycardic to a 3 systolic ejection murmur RESPIRATORY: Diminished breath sounds at the left base but otherwise fairly good air movement throughout. ABDOMINAL: Bowel sounds present and soft and nontender EXTREMITIES: No clubbing cyanosis or appreciable edema LABORATORY DATA, IMAGING STUDIES, MICROBIOLOGY: Please see below. DVT prophylaxis ordered?: Heparin ASSESSMENT AND PLAN: This is a 73-year-old female with acute on chronic hypoxic/hypercarbic respiratory failure. 1. Acute on chronic hypoxic hypercapnic respiratory failure: Readmit after a short stay at home. The patient was discharged home without BiPAP. She has been non compliant repeatedly even while he in the ICU. Lengthy goals of care discussion was had the patient is inclined to not wearing the mask and going jazmin e hospice options were discussed as well the patient's daughter informs her that further family members are coming from out of town to the hospital Family meeting and let us know if they're electing for hospice care at this time versus continued noninvasive care. Her prognosis is quite poor 2. Shock:Suspected cardiac in origin. Appears to be resolved she is not requiring any pressor support at this time he is doing quite well, she is persistently tachycardic 3. Diastolic congestive heart failure exacerbation: As outlined above I have transitioned her back to her home diuretic and discontinued her Farooq catheter, The patient had a recent echocardiogram performed on 05/11/2018 on the last admission. The patient was found to have a grade I diastolic dysfunction and normal ejection fraction (EF) 4.chronic kidney disease: Cr stable at 1.6m that appears to be about baseline it is slightly worse with continued to monitor at this time 5. Obstructive sleep apnea: History of noncompliance with CPAP. And continued noncompliance lengthy goals of care discussion as outlined above 6. Hypertension: Was initially hypotensive however at this time her blood pressures normalizing at should she become hypertensive would restart her home medications 7. History of GI bleed.: Hemoglobin is downtrending today pending goals of care discussion should she elect for hospice I'll hold off on any transfusions or further workup until it is clear with the patient wishes to have done and did not have done later today 8. Diabetes. Sliding scale. Consistent carbohydrate diet. 9. Elevated D-Dimer: Patient has numerous etiologies while she is in respiratory failure however I do not feel the need to seek out a pulmonary embolism for being any additional etiology hypoxic is resolving she is AT her baseline for the time of her admission, her respiratory status improving without treatment for PE see no reason to seek out this diagnosis any further 10. History of coronary artery disease. On aspirin and Lipitor. Her home beta blockers currently on hold 11. Depression. On Zoloft and Effexor. Disposition: Prognosis poor VS, I&O, 24H, Fishbone Vital Signs/I&O Vital Signs Date Time Temp Pulse Resp B/P (MAP) Pulse Ox O2 Delivery O2 Flow Rate FiO2 07/21/18 12:00 98.7 112 22 135/80 (98) 90 4.0 07/21/18 10:00 40 07/19/18 04:00 BIPAP/CPAP I&O- Last 24 Hours up to 6 AM 07/21/18 06:00 Intake Total 720 ml Output Total 925 ml Balance -205 ml Laboratory Data 24H LABS Laboratory Tests 2 07/20/18 16:42: Bedside Glucose (Misc Panel) 237H 07/20/18 20:29: Bedside Glucose (Misc Panel) 107 07/20/18 22:01: Bedside Glucose (Misc Panel) 104 07/21/18 04:50: Nucleated Red Blood Cells % (auto) 0.0, Anion Gap 2L, Glomerular Filtration Rate 26.3L, Blood Urea Nitrogen 44H, Creatinine 1.97H, Sodium Level 141, Potassium Level 4.1, Chloride Level 91L, Carbon Dioxide Level 48H, Calcium Level 8.5L, Magnesium Level 2.4 07/21/18 08:34: Blood Gas Bicarbonate Standard 40.7H, Arterial Blood pH 7.303L, Arterial Blood Partial Pressure CO2 94.9*H, Arterial Blood Partial Pressure O2 111.7H, Arterial Blood Total CO2 48.9H, Arterial Blood HCO3 46.0H, Arterial Blood Base Excess 16.9H, Arterial Blood Oxygen Saturation 98.1 07/21/18 12:06: Bedside Glucose (Misc Panel) 187H CBC/BMP Laboratory Tests 07/21/18 04:50 Red Blood Count 2.48 L, Mean Corpuscular Volume 105.6 H, Mean Corpuscular Hemoglobin 30.2, Mean Corpuscular Hemoglobin Concent 28.6 L, Red Cell Distribution Width 18.3 H, Calcium Level 8.5 L Microbiology Microbiology 07/16/18 Blood Culture - Preliminary, Resulted No Growth after 72 hours. All specime... 07/16/18 Blood Culture - Preliminary, Resulted No Growth after 72 hours. All specime... MARIANA QIU MD Jul 21, 2018 13:38
--- NOTE | 2018-07-21 15:51 | ECGEPIP ---
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 Electronically Signed On 07-21-2018 15:50:40 EDT by Sky Wright
[2018-07-22] VITALS (33 sets, daily range): BP systolic 75–192; BP diastolic 50–88; O2SAT 87–99
[2018-07-22 05:09] LABS: HEMATOCRIT 22.2 % (36.0-47.0); MEAN CORPUSCULAR HEMOGLOBIN 30.5 pg (27.0-33.0); MEAN CORPUSCULAR HGB CONC 29.3 g/dl (32.0-36.5); MEAN CORPUSCULAR VOLUME 104.2 fl (80.0-96.0); PLATELET COUNT, AUTOMATED 120 10^3/uL (150-450); RED BLOOD COUNT 2.13 10^6/uL (4.00-5.40); WHITE BLOOD COUNT 4.5 10^3/uL (4.0-10.0)
[2018-07-22 05:12] LABS: HEMOGLOBIN 6.5 g/dl (12.0-15.5)
[2018-07-22 05:55] LABS: CALCIUM LEVEL 8.6 MG/DL (8.8-10.2); CREATININE FOR GFR 1.9 MG/DL (0.55-1.30); GLOMERULAR FILTRATION RATE 27.4 (>39); MAGNESIUM LEVEL 2.2 MG/DL (1.8-2.4); POTASSIUM SERUM 3.9 MEQ/L (3.5-5.1)
[2018-07-22] MEDS: HumaLOG INSULIN (NovoLOG) PER UNIT SC SCH ×4 (07:47→21:00)
[2018-07-22 07:54] LABS: PERCENT SATURATION 15.3 % (13.2-45.0)
[2018-07-22] MEDS: TIOTROPIUM INHALER/CAPSULE (SPIRIVA) INH SCH (08:00)
[2018-07-22] MEDS: HEPARIN SOD (PORCINE) 5000 UNITS/ML VIAL SQ SCH (08:01)
[2018-07-22] MEDS: VENLAFAXINE **XR** 75MG CAPSULE PO SCH (08:01)
[2018-07-22] MEDS: ATORVASTATIN 20 MG TAB PO SCH (08:01)
[2018-07-22] MEDS: MULTIVITAMINS/MINERALS THERAP 1 TAB PO SCH (08:02)
[2018-07-22] MEDS: FUROSEMIDE 80 MG TAB PO SCH (08:02)
[2018-07-22] MEDS: QUEtiapine FUMARATE 25 MG TAB PO SCH ×2 (08:02→21:16)
[2018-07-22] MEDS: PANTOPRAZOLE 40MG TAB (PROTONIX) PO SCH (08:02)
[2018-07-22] MEDS: ASPIRIN 325 MG TAB PO SCH (08:02)
[2018-07-22] MEDS: SERTRALINE 100 MG TAB PO SCH (08:03)
[2018-07-22] MEDS: FERROUS SULFATE 325MG TAB PO SCH (08:03)
[2018-07-22] MEDS: ADVAIR HFA 230/21MCG INHALER INH SCH ×2 (09:00→20:30)
--- NOTE | 2018-07-22 12:54 | IPNPDOC ---
Date Seen The patient was seen on 07/22/18. Progress Note SUBJECTIVE: Patient tells me she is breathing better we have a lengthy conversation regarding goals of care she tells me that at this time she wishes to continue to wear her BiPAP at home and where Dr. gill while sleeping she tells me she is given strict compliant although she has not been in the past her daughter at bedside and also reiterates this as well. She tells me that she noticed some dark tarry stools but this is nothing new going on for quite some time. OBJECTIVE PHYSICAL EXAMINATION: VITAL SIGNS: Please see below. GENERAL: Pleasant elderly sitting up in bed lying she does not appear to be in any acute distress accompanied by daughter. She is awake alert oriented HEENT: Cranial nerves nerves II through XII grossly intact she is wearing foam dressing over her nasal bridge CARDIOVASCULAR: S1-S2 she is tachycardic to a 3 systolic ejection murmur RESPIRATORY: Diminished breath sounds at the left base but otherwise fairly good air movement throughout. ABDOMINAL: Bowel sounds present and soft and nontender EXTREMITIES: No clubbing cyanosis or edema LABORATORY DATA, IMAGING STUDIES, MICROBIOLOGY: Please see below. DVT prophylaxis ordered?: Heparin ASSESSMENT AND PLAN: This is a 73-year-old female with acute on chronic hypoxic/hypercarbic respiratory failure. 1. Acute on chronic hypoxic hypercapnic respiratory failure: Readmit after a short stay at home. The patient was discharged home without BiPAP. She has been non compliant repeatedly even while he in the ICU. Lengthy goals of care discussion was had the patient we've and is considered hospice however the patient at this time is a DNR/DNI but would elect to once again try BiPAP will defer to pulmonary to arrange for conversion of her current BiPAP therapy to possibly a tabletop and possibly arrange for machine for her at home upon discharge 2. Shock:Suspected cardiac in origin. Appears to be resolved she is not requiring any pressor support at this time he is doing quite well, she is persistently tachycardic 3. Diastolic congestive heart failure exacerbation: As outlined above I have transitioned her back to her home diuretic and discontinued her Farooq catheter, The patient had a recent echocardiogram performed on 05/11/2018 on the last admission. The patient was found to have a grade I diastolic dysfunction and normal ejection fraction (EF) 4.chronic kidney disease: Cr stable at 1.6m that appears to be about baseline it is slightly worse with continued to monitor at this time 5. Obstructive sleep apnea: History of noncompliance with CPAP. And continued noncompliance lengthy goals of care discussion as outlined above 6. Hypertension: Was initially hypotensive however at this time her blood pressures normalizing at should she become hypertensive would restart her home medications 7. History of GI bleed.: Hemoglobin is downtrending today the patient is a D NR/DNI but is requesting further interventions she was recently admitted at [facility] for GI bleeding gums completed that with the last month I will request those records have restarted to Dr. Butler of general surgery. We will hold her by mouth medications which are nonessential started on Protonix IV and make her nothing by mouth I will transfuse her 2 units of PRBCs consent was obtained and placed in the chart type cross completed 8. Diabetes. Sliding scale. Consistent carbohydrate diet. 9. History of coronary artery disease. On aspirin and Lipitor. Her home beta blockers currently on hold and we will be holding her by mouth medications for this time 10. Depression. On Zoloft and Effexor. Disposition: Prognosis guarded VS, I&O, 24H, Fishbone Vital Signs/I&O Vital Signs Date Time Temp Pulse Resp B/P (MAP) Pulse Ox O2 Delivery O2 Flow Rate FiO2 07/22/18 12:00 40 07/22/18 12:00 99.3 103 26 131/63 (85) 91 2.0 07/22/18 06:00 BIPAP/CPAP I&O- Last 24 Hours up to 6 AM 07/22/18 05:59 Intake Total 1110 ml Output Total 500 ml Balance 610 ml Laboratory Data 24H LABS Laboratory Tests 2 07/21/18 16:56: Bedside Glucose (Misc Panel) 144H 07/21/18 20:45: Bedside Glucose (Misc Panel) 202H 07/22/18 04:55: Reticulocyte # (auto) 78.9H, Nucleated Red Blood Cells % (auto) 0.0, Differential Slide Review Report, Peripheral Blood Smear Path Consult PERIPHERAL SMEAR, Percent Reticulocyte Count 3.7H, Reticulocyte Hemoglobin Equivalent 26.9, Anion Gap 3L, Glomerular Filtration Rate 27.4L, Blood Urea Nitrogen 55H, Creatinine 1.90H, Sodium Level 139, Potassium Level 3.9, Chloride Level 90L, Carbon Dioxide Level 46H, Calcium Level 8.6L, Magnesium Level 2.2, Iron Level 42L, Total Iron Binding Capacity 274, Transferrin % Saturation 15.3, Ferritin 100 07/22/18 07:45: Bedside Glucose (Misc Panel) 179H 07/22/18 11:39: Bedside Glucose (Misc Panel) 170H CBC/BMP Laboratory Tests 07/22/18 04:55 Red Blood Count 2.13 L, Mean Corpuscular Volume 104.2 H, Mean Corpuscular Hemoglobin 30.5, Mean Corpuscular Hemoglobin Concent 29.3 L, Red Cell Distribution Width 18.3 H, Calcium Level 8.6 L Microbiology Microbiology 07/16/18 Blood Culture - Final, Complete NO GROWTH AFTER 5 DAYS 07/16/18 Blood Culture - Final, Complete NO GROWTH AFTER 5 DAYS MARIANA QIU MD Jul 22, 2018 12:54
[2018-07-22] MEDS: PANTOPRAZOLE 40MG INJ (PROTONIX) (C9113) IV SCH (21:16)
[2018-07-23] VITALS (15 sets, daily range): BP systolic 104–162; BP diastolic 56–86; O2SAT 82–96
[2018-07-23 05:25] LABS: HEMATOCRIT 26.4 % (36.0-47.0); HEMOGLOBIN 8.2 g/dl (12.0-15.5); MEAN CORPUSCULAR HEMOGLOBIN 29.6 pg (27.0-33.0); MEAN CORPUSCULAR HGB CONC 31.1 g/dl (32.0-36.5); MEAN CORPUSCULAR VOLUME 95.3 fl (80.0-96.0); PLATELET COUNT, AUTOMATED 136 10^3/uL (150-450); RED BLOOD COUNT 2.77 10^6/uL (4.00-5.40); WHITE BLOOD COUNT 5.6 10^3/uL (4.0-10.0)
[2018-07-23 06:18] LABS: BLOOD UREA NITROGEN 43 MG/DL (7-18); CALCIUM LEVEL 8.5 MG/DL (8.8-10.2); CARBON DIOXIDE LEVEL 48 MEQ/L (21-32); CHLORIDE LEVEL 92 MEQ/L (98-107); CREATININE FOR GFR 1.67 MG/DL (0.55-1.30); GLOMERULAR FILTRATION RATE 31.8 (>39); GLUCOSE, FASTING 147 MG/DL (70-100); POTASSIUM SERUM 3.4 MEQ/L (3.5-5.1); SODIUM LEVEL 139 MEQ/L (136-145)
[2018-07-23] MEDS: HumaLOG INSULIN (NovoLOG) PER UNIT SC SCH ×4 (08:20→20:51)
[2018-07-23] MEDS: PANTOPRAZOLE 40MG INJ (PROTONIX) (C9113) IV SCH ×2 (08:20→20:33)
[2018-07-23] MEDS: TIOTROPIUM INHALER/CAPSULE (SPIRIVA) INH SCH (08:34)
[2018-07-23] MEDS: ADVAIR HFA 230/21MCG INHALER INH SCH ×2 (08:35→21:00)
[2018-07-23] MEDS: SERTRALINE 100 MG TAB PO SCH (13:25)
[2018-07-23] MEDS: VENLAFAXINE **XR** 75MG CAPSULE PO SCH (13:26)
[2018-07-23] MEDS: QUEtiapine FUMARATE 25 MG TAB PO SCH ×2 (13:26→20:33)
--- NOTE | 2018-07-23 15:08 | IPNPDOC ---
Date Seen The patient was seen on 07/23/18. Progress Note SUBJECTIVE: Patient tells me she is breathing better we have a lengthy conversation regarding goals of care she tells me that at this time she wishes to continue to wear her BiPAP at home and where Dr. gill while sleeping she tells me she is given strict compliant although she has not been in the past her daughter at bedside and also reiterates this as well. She tells me that she noticed some dark tarry stools but this is nothing new going on for quite some time. OBJECTIVE PHYSICAL EXAMINATION: VITAL SIGNS: Please see below. GENERAL: Pleasant elderly sitting up in bed lying she does not appear to be in any acute distress accompanied by daughter. She is awake alert oriented HEENT: Cranial nerves nerves II through XII grossly intact she is wearing foam dressing over her nasal bridge CARDIOVASCULAR: S1-S2 she is tachycardic to a 3 systolic ejection murmur RESPIRATORY: Diminished breath sounds at the left base but otherwise fairly good air movement throughout. ABDOMINAL: Bowel sounds present and soft and nontender EXTREMITIES: No clubbing cyanosis or edema LABORATORY DATA, IMAGING STUDIES, MICROBIOLOGY: Please see below. DVT prophylaxis ordered?: Heparin ASSESSMENT AND PLAN: This is a 73-year-old female with acute on chronic hypoxic/hypercarbic respiratory failure. 1. Acute on chronic hypoxic hypercapnic respiratory failure: Readmit after a short stay at home. The patient was discharged home without BiPAP. She has been non compliant repeatedly even while he in the ICU. Lengthy goals of care discussion was had the patient we've and is considered hospice however the patient at this time is a DNR/DNI but would elect to once again try BiPAP will defer to pulmonary to arrange for conversion of her current BiPAP therapy to possibly a tabletop and possibly arrange for machine for her at home upon discharge 2. Shock:Suspected cardiac in origin. Appears to be resolved she is not requiring any pressor support at this time he is doing quite well, she is persistently tachycardic 3. Diastolic congestive heart failure exacerbation: As outlined above I have transitioned her back to her home diuretic and discontinued her Farooq catheter, The patient had a recent echocardiogram performed on 05/11/2018 on the last admission. The patient was found to have a grade I diastolic dysfunction and normal ejection fraction (EF) 4.chronic kidney disease: Cr stable at 1.6m that appears to be about baseline 5. Obstructive sleep apnea: History of noncompliance with CPAP. And continued lengthy goals of care discussion as outlined above, patient agreeable for further care at this time and wants to try home with BiPAP again 6. Hypertension: Was initially hypotensive however at this time her blood pressures normalizing at should she become hypertensive would restart her home medications 7. GI bleed:Await Gen Surg recs, Hemoglobin is downtrending she has had a positive response to PRBCs I suspect slow bleed. She was recently admitted at [facility] for GI bleeding gums completed that with the last month I have requested those records. We will hold her by mouth medications which are nonessential started on Protonix IV and keep her nothing by mouth. 8. Diabetes. Sliding scale. Consistent carbohydrate diet. 9. History of coronary artery disease. On aspirin and Lipitor. Her home beta blockers currently on hold and we will be holding her by mouth medications for this time 10. Depression. On Zoloft and Effexor. Disposition: Prognosis guarded VS, I&O, 24H, Fishbone Vital Signs/I&O Vital Signs Date Time Temp Pulse Resp B/P (MAP) Pulse Ox O2 Delivery O2 Flow Rate FiO2 07/23/18 12:00 3.0 07/23/18 12:00 98.8 97 20 148/65 (92) 96 07/23/18 12:00 Nasal Cannula 07/22/18 17:03 40 I&O- Last 24 Hours up to 6 AM 07/23/18 06:00 Intake Total 1840 ml Output Total 995 ml Balance 845 ml Laboratory Data 24H LABS Laboratory Tests 2 07/22/18 18:02: Bedside Glucose (Misc Panel) 242H 07/22/18 21:23: Bedside Glucose (Misc Panel) 146H 07/23/18 05:10: Nucleated Red Blood Cells % (auto) 0.0, Anion Gap , Glomerular Filtration Rate 31.8L, Blood Urea Nitrogen 43H, Creatinine 1.67H, Sodium Level 139, Potassium Level 3.4L, Chloride Level 92L, Carbon Dioxide Level 48H, Calcium Level 8.5L, Magnesium Level 2.0 07/23/18 12:07: Bedside Glucose (Misc Panel) 168H CBC/BMP Laboratory Tests 07/23/18 05:10 Red Blood Count 2.77 L, Mean Corpuscular Volume 95.3, Mean Corpuscular Hemoglobi n 29.6, Mean Corpuscular Hemoglobin Concent 31.1 L, Red Cell Distribution Width 19.1 H, Calcium Level 8.5 L Microbiology Microbiology 07/16/18 Blood Culture - Final, Complete NO GROWTH AFTER 5 DAYS 07/16/18 Blood Culture - Final, Complete NO GROWTH AFTER 5 DAYS 07/22/18 Stool Occult Blood (ARVIND) - Final, Complete MARIANA QIU MD Jul 23, 2018 15:08
[2018-07-23 15:12] LABS: ABG BASE EXCESS 19.6 (-2.0-2.0); ABG O2 SATURATION 95.7 % (95.0-99.0); ABG PARTIAL PRESSURE O2 80.8 mmHg (75.0-100.0); ABG STANDARD HCO3 43.6 MEQ/L (22.0-26.0); ABG TOTAL CO2 50.5 MEQ/L (23.0-31.0); ABG pH (ARTERIAL) 7.374 UNITS (7.350-7.450)
[2018-07-23 15:13] LABS: ABG PARTIAL PRESSURE CO2 84.1 mmHg (35.0-45.0)
[2018-07-23] MEDS: IPRATROPIUM 0.5MG/ALBUTEROL 2.5MG INH SOL UD 3ML (DUONEB)(J7620) NEB PRN (20:24)
[2018-07-24] VITALS (13 sets, daily range): BP systolic 134–180; BP diastolic 61–79; O2SAT 86–97
[2018-07-24 05:22] LABS: HEMATOCRIT 26.3 % (36.0-47.0); HEMOGLOBIN 7.9 g/dl (12.0-15.5); MEAN CORPUSCULAR HEMOGLOBIN 29.3 pg (27.0-33.0); MEAN CORPUSCULAR VOLUME 97.4 fl (80.0-96.0); PLATELET COUNT, AUTOMATED 135 10^3/uL (150-450)
[2018-07-24 05:54] LABS: CALCIUM LEVEL 8.7 MG/DL (8.8-10.2); CREATININE FOR GFR 1.5 MG/DL (0.55-1.30); POTASSIUM SERUM 3.3 MEQ/L (3.5-5.1)
[2018-07-24] MEDS: ADVAIR HFA 230/21MCG INHALER INH SCH ×2 (07:24→19:20)
[2018-07-24] MEDS: TIOTROPIUM INHALER/CAPSULE (SPIRIVA) INH SCH (07:24)
[2018-07-24 07:35] LABS: ABG pH (ARTERIAL) 7.439 UNITS (7.350-7.450)
[2018-07-24 07:36] LABS: ABG BASE EXCESS 17.8 (-2.0-2.0); ABG HCO3 44.3 MEQ/L (22.0-26.0); ABG O2 SATURATION 98.2 % (95.0-99.0); ABG PARTIAL PRESSURE CO2 66.9 mmHg (35.0-45.0); ABG PARTIAL PRESSURE O2 109.2 mmHg (75.0-100.0); ABG STANDARD HCO3 41.7 MEQ/L (22.0-26.0); ABG TOTAL CO2 46.4 MEQ/L (23.0-31.0)
[2018-07-24] MEDS: HumaLOG INSULIN (NovoLOG) PER UNIT SC SCH ×4 (08:12→20:49)
[2018-07-24] MEDS: PANTOPRAZOLE 40MG INJ (PROTONIX) (C9113) IV SCH ×2 (08:13→20:57)
[2018-07-24] MEDS: QUEtiapine FUMARATE 25 MG TAB PO SCH ×2 (08:13→20:58)
[2018-07-24] MEDS: SERTRALINE 100 MG TAB PO SCH (08:13)
[2018-07-24] MEDS: VENLAFAXINE **XR** 75MG CAPSULE PO SCH (08:13)
--- NOTE | 2018-07-24 09:13 | CR ---
DATE OF CONSULTATION: 07/23/2018 REASON FOR CONSULTATION: Possible gastrointestinal (GI) bleed. HISTORY OF PRESENT ILLNESS: The patient is a 73-year-old woman who was admitted at [facility] on July 16, 2018. She is a 73-year-old woman with a medical history of chronic obstructive pulmonary disease who on the date of admission was found on the floor and seemed somewhat confused. Her oxygen levels were diminished. The patient has been admitted to the hospital several times over the last 4-6 weeks. She had presented at [facility] back in mid June at which time she was found to be quite anemic. She apparently received transfusions and was transferred to [facility] for treatment. She was transferred with improvement in her hematocrit. In about mid June, she underwent an upper endoscopy and a lower endoscopy to look for any source of gastrointestinal bleeding. The upper endoscopy showed no obvious lesions according to the report from [facility]. She did have some biopsies obtained from the stomach, which showed some mild chronic gastritis. 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 The patient had undergone a partial colectomy followed by a total abdominal colectomy many years ago because of cancer and multiple residual polyps. She has an ileorectal anastomosis. The patient reports that she was sent from [facility] back to [facility], but subsequently had some worsening issues with her respiratory status and was then subsequently sent back to [facility] and then back to [facility] and has now come to [facility] with her hypoxia. While here in the hospital, she was noted to have some (dictation cut off) on the and her hemoglobin and hematocrit were noted to have fallen somewhat to a hemoglobin of 6.5 with a hematocrit of 22. She was given 2 units of packed red blood cells, and I was consulted to consider further evaluation regarding her possible GI bleed. ALLERGIES: The patient reports allergies to PENICILLINS, ERYTHROMYCIN, and METFORMIN. Her current medications are as listed in the hospital record. Her home medications include antihypertensives, atorvastatin, Lasix, Protonix twice daily, quetiapine and sertraline, as well as Januvia, Spiriva and venlafaxine. MEDICAL HISTORY: Significant for chronic obstructive pulmonary disease. She has a history of asthma and emphysema. She does reportedly have sleep apnea. She has had a total abdominal colectomy and generally has soft stools. She reports that she has dark stools when she is taking her iron supplement. She reports diabetes, anxiety and depression as well as hyperlipidemia and hypertension. SURGICAL HISTORY: Significant for a partial colectomy perhaps 15 years ago, followed by a total abdominal colectomy shortly thereafter because of multiple residual polyps. She has had a cholecystectomy. She has also had an umbilical herniorrhaphy and an appendectomy. She has had bilateral cataract surgery. FAMILY HISTORY: Significant in that her mother had colon cancer and her mother and father both had chronic lung disease. SOCIAL HISTORY: The patient is a former smoker who quit approximately 12 years ago. She denies any alcohol. She apparently lives at home with her son and daughter who check on her. REVIEW OF SYSTEMS: The patient denies any chest pain or palpitations. She has had some shortness of breath recently, which appears to be improved currently. She has not had any fevers or chills. She denies any abdominal pain, nausea or vomiting. She has noted some occasional dark stool but again she relates this to her taking an iron supplement. She has not noticed any red rectal bleeding. PHYSICAL EXAM: Reveals a pleasant elderly woman in no apparent distress currently. She is alert and oriented. She is very cooperative with the exam. Skin: Warm and dry. Sclerae are anicteric. Mucous membranes are moist. The neck is supple. Heart: Exam shows a regular rate and rhythm. The lungs show some coarse breath sounds and a few faint expiratory wheezes bilaterally. Abdomen is somewhat protuberant but soft and nontender without appreciable mass. Extremities are without significant edema. Laboratory studies today showed a white count of 6, hemoglobin of 8, hematocrit of 26, and platelet count of 136,000. Her chemistry profile today showed a sodium of 139, potassium 3.4, chloride 92, CO2 of 48, a glucose of 147 with a BUN of 43 and a creatinine of 1.7. I reviewed her medical records from [facility] where in mid June she had undergone an esophagogastroduodenoscopy (EGD), which showed no obvious source for any rectal bleeding down to the third portion of the duodenum. The colonoscopy identified her ileal rectal anastomosis at approximately 25 cm. Again, there was no evident source for bleeding noted. She had two small rectal polyps that were resected. These proved to be tubulovillous adenomas. IMPRESSION: The patient is a very pleasant older woman who appears to have had some recurrent gastrointestinal bleeding requiring transfusion. She had been evaluated at [facility] a month ago with upper and lower endoscopy and no source for bleeding was identified. Looking at the notes from [facility], there was a suggestion to consider an outpatient followup capsule endoscopy to look for a small bowel source for bleeding. RECOMMENDATIONS: At this point, given her recent endoscopy exams and the absence of any signs of active bleeding currently, I would not recommend any further endoscopic evaluation at this time. I am certain that she is not bleeding enough to make a bleeding scan or arteriogram worthwhile. I would recommend monitoring her hemoglobin and hematocrit. It may well be worth considering a capsule endoscopy on an outpatient basis. This would depend on how aggressively she wishes to pursue a possible small bowel source of bleeding. I will continue to monitor her during her stay here at [facility].
[2018-07-24] MEDS: FUROSEMIDE 80 MG TAB PO SCH (09:49)
--- NOTE | 2018-07-24 10:41 | IPNPDOC ---
Date Seen The patient was seen on 07/24/18. Progress Note SUBJECTIVE: Patient reports no bruising complaints she tells me she is still having dark tarry stools. He denies lightheadedness dizziness palpitations chest pressure shortness of breath nausea vomiting. Patient reports having seen him and flying around her room yesterday evening OBJECTIVE PHYSICAL EXAMINATION: VITAL SIGNS: Please see below. GENERAL: Pleasant elderly sitting in chair does not appear to be in any acute distress accompanied by her son. HEENT: Cranial nerves nerves II through XII grossly intact she is wearing foam dressing over her nasal bridge CARDIOVASCULAR: S1-S2 she is tachycardic to a 3 systolic ejection murmur RESPIRATORY fairly good air movement throughout. Scattered bibasilar Rales ABDOMINAL: Bowel sounds present and soft and nontender EXTREMITIES: No clubbing cyanosis or edema LABORATORY DATA, IMAGING STUDIES, MICROBIOLOGY: Please see below. DVT prophylaxis ordered?: Heparin ASSESSMENT AND PLAN: This is a 73-year-old female with acute on chronic hypoxic/hypercarbic respiratory failure. 1. Acute on chronic hypoxic hypercapnic respiratory failure: Secondary to noncompliance regarding her obstructive sleep apnea pulmonary help is greatly appreciated she did tolerate a tabletop last night her arterial blood gases morning is certainly acceptable I suspect she can be downgraded to medical surgical floor. I will require pulmonary's assistance in arranging for home BiPAP tabletop machine so that she is able to continue her current settings there should she leave the hospital without this machine she will likely almost immediately. Readmitted with respiratory failure once again she did during her last discharge. Patient is a DNR/DNI 2. Shock:Suspected cardiac in origin. resolved 3. Diastolic congestive heart failure exacerbation: She did receive 2 units of PRBCs yesterday and will restart her Lasix she does not appear to be grossly volume overloaded today however she did have some scattered bibasilar Rales. Blood to monitor blood status closely suspect she'll require additional blood transfusions as early as tomorrow provided with some Lasix today she is on a fluid restricted diet currently she appears fairly compensated 4.chronic kidney disease: Cr stable close to baseline 5. Obstructive sleep apnea: History of noncompliance with CPAP. And continued lengthy goals of care discussion, patient agreeable for further care at this time and wants to try home with BiPAP again 6. Hypertension: Was initially hypotensive however at this time her blood pressures are coming up I'll provide her with her home Lasix and restart her other home medications as needed 7. GI bleed:Gen Surg recs appreciated her hemoglobin continues to trend down after a transfusion likely a slow bleed possible small bowel in etiology recommendation was for Endoscopy Surgery Feels No Further Endoscopy Procedures Would Be Beneficial at This Time We'll Continue to Transfuse When Necessary Have Her Follow-Up with Gastroenterology Outpatient As Previously Scheduled for Capsule Endoscopy. I will advance her diet continue with the PPI IV twice a day 8. Diabetes. Sliding scale. Consistent carbohydrate diet. With sodium and fluid restriction fingersticks well controlled 9. History of coronary artery disease. On aspirin, Lipitor and beta blockers will resume her Lipitor and beta ester continue to hold aspirin in the setting of bleeding 10. Depression. On Zoloft and Effexor. 11. Visual hallucinations: I suspect she is having some degree of sundowning there are no suspicious medications he certainly has significant psychiatric history and is medicated for this as effective as we downgraded to the medical intensive care unit and have her approach her more normal environment she will do better Disposition: Prognosis guarded given her chronic kidney disease chronic hypoxic respiratory failure GI bleed he is certainly quite fragile I did discuss at length with her son today she remains a DNR/DNI VS, I&O, 24H, [facility] Vital Signs/I&O Vital Signs Date Time Temp Pulse Resp B/P (MAP) Pulse Ox O2 Delivery O2 Flow Rate FiO2 07/24/18 08:00 99.2 96 20 180/79 (112) 97 3.0 07/24/18 08:00 Nasal Cannula 07/22/18 17:03 40 I&O- Last 24 Hours up to 6 AM 07/24/18 06:00 Intake Total 670 ml Output Total 228 ml Balance 442 ml Laboratory Data 24H LABS Laboratory Tests 2 07/23/18 12:07: Bedside Glucose (Misc Panel) 168H 07/23/18 14:57: Blood Gas Bicarbonate Standard 43.6H, Arterial Blood pH 7.374, Arterial Blood Partial Pressure CO2 84.1*H, Arterial Blood Partial Pressure O2 80.8, Arterial Blood Total CO2 50.5H, Arterial Blood HCO3 48.0H, Arterial Blood Base Excess 19.6H, Arterial Blood Oxygen Saturation 95.7 07/23/18 17:08: Bedside Glucose (Misc Panel) 196H 07/23/18 20:08: Bedside Glucose (Misc Panel) 187H 07/24/18 05:05: Nucleated Red Blood Cells % (auto) 0.0, Anion Gap 3L, Glomerular Filtration Rate 36.0L, Blood Urea Nitrogen 32H, Creatinine 1.50H, Sodium Level 142, Potassium Level 3.3L, Chloride Level 93L, Carbon Dioxide Level 46H, Calcium Level 8.7L 07/24/18 07:26: Blood Gas Bicarbonate Standard 41.7H, Arterial Blood pH 7.439, Arterial Blood Partial Pressure CO2 66.9*H, Arterial Blood Partial Pressure O2 109.2H, Arterial Blood Total CO2 46.4H, Arterial Blood HCO3 44.3H, Arterial Blood Base Excess 17.8H, Arterial Blood Oxygen Saturation 98.2 CBC/BMP Laboratory Tests 07/24/18 05:05 Red Blood Count 2.70 L, Mean Corpuscular Volume 97.4 H, Mean Corpuscular Hemoglobin 29.3, Mean Corpuscular Hemoglobin Concent 30.0 L, Red Cell Distribution Width 18.6 H, Calcium Level 8.7 L Microbiology Microbiology 07/16/18 Blood Culture - Final, Complete NO GROWTH AFTER 5 DAYS 07/16/18 Blood Culture - Final, Complete NO GROWTH AFTER 5 DAYS 07/22/18 Stool Occult Blood (ARVIND) - Final, Complete MARIANA QIU MD Jul 24, 2018 10:41
[2018-07-24] MEDS: METOPROLOL TART 50 MG TAB PO SCH ×2 (11:47→20:57)
[2018-07-24] MEDS ORDERED: POTASSIUM CHLORIDE 10 MEQ SR TABLET PO ONE (12:00)
--- NOTE | 2018-07-24 21:41 | IPN ---
DATE: 07/24/2018 HISTORY: The patient was admitted with respiratory problems and had some dark stool and a drop in her hematocrit and I was consulted yesterday to evaluate regarding the need for an endoscopic exam. The patient had undergone an EGD and proctoscopy just a month ago in [place] with no findings of significance. The patient reports perhaps a spot of blood rectally in the last 24 hours. However, this morning she does appear somewhat confused and talks about the help, referring to the nurses, going out for shopping and things like that. Vital signs show that she has been afebrile over the past 24 hours. Her pulse is in the 90s generally. Blood pressure has been acceptable. Intake and output shows that yesterday she has 640 recorded in and 528 recorded out. Records indicate she had three bowel movements yesterday which were described as small, liquid and black. PHYSICAL EXAMINATION: The patient is sitting up in a chair at the bedside. She is alert. Abdomen is nondistended and soft. Laboratory studies today show white count of 5, hemoglobin 8, hematocrit 26 and platelet count of 135,000. Her chemistry profile shows sodium of 142, potassium 3.3, chloride 93, CO2 of 46, BUN of 32, creatinine 1.5 and a glucose of 133. IMPRESSION: Patient has no signs of active bleeding at this time. EGD and colonoscopy a month ago showed no obvious source for bleeding. It may be that she has a small bowel issue that could not be identified endoscopically and in [place] they had suggested the possibility of a capsule endoscopy as an outpatient. PLAN: I would not recommend any further testing at this time. If the patient develops signs of active bleeding then an upper endoscopy may be appropriate. [facility]
[2018-07-25] MEDS: SODIUM CHLORIDE 0.9% INJ 10 ML SYR IV SCH ×2 (04:57→18:36)
[2018-07-25] MEDS: SODIUM CHLORIDE 0.9% INJ 10 ML SYR IV PRN ×3 (04:58→23:08)
[2018-07-25 05:23] LABS: HEMATOCRIT 28.6 % (36.0-47.0); HEMOGLOBIN 8.4 g/dl (12.0-15.5); MEAN CORPUSCULAR HEMOGLOBIN 29.1 pg (27.0-33.0); MEAN CORPUSCULAR HGB CONC 29.4 g/dl (32.0-36.5); PLATELET COUNT, AUTOMATED 164 10^3/uL (150-450); RED BLOOD COUNT 2.89 10^6/uL (4.00-5.40); WHITE BLOOD COUNT 5.6 10^3/uL (4.0-10.0)
[2018-07-25 06:00] VITALS: BP 156/77
[2018-07-25 06:41] LABS: CALCIUM LEVEL 8.5 MG/DL (8.8-10.2); CREATININE FOR GFR 1.64 MG/DL (0.55-1.30); GLOMERULAR FILTRATION RATE 32.5 (>39); POTASSIUM SERUM 3.9 MEQ/L (3.5-5.1)
[2018-07-25] MEDS: TIOTROPIUM INHALER/CAPSULE (SPIRIVA) INH SCH (07:32)
[2018-07-25] MEDS: ADVAIR HFA 230/21MCG INHALER INH SCH ×2 (07:32→19:26)
[2018-07-25] MEDS: FUROSEMIDE 80 MG TAB PO SCH (08:01)
[2018-07-25] MEDS: VENLAFAXINE **XR** 75MG CAPSULE PO SCH (08:01)
[2018-07-25] MEDS: ATORVASTATIN 20 MG TAB PO SCH (08:01)
[2018-07-25] MEDS: SERTRALINE 100 MG TAB PO SCH (08:02)
[2018-07-25] MEDS: METOPROLOL TART 50 MG TAB PO SCH ×2 (08:02→22:06)
[2018-07-25] MEDS: HumaLOG INSULIN (NovoLOG) PER UNIT SC SCH ×4 (08:02→21:00)
[2018-07-25] MEDS: QUEtiapine FUMARATE 25 MG TAB PO SCH ×2 (08:02→22:06)
[2018-07-25] MEDS: PANTOPRAZOLE 40MG INJ (PROTONIX) (C9113) IV SCH ×2 (08:14→22:04)
[2018-07-25 14:00] VITALS: BP 167/74
--- NOTE | 2018-07-25 15:01 | IPNPDOC ---
Date Seen The patient was seen on 07/25/18. Progress Note SUBJECTIVE: Patient is frustrated this morning she tells me that she was wearing her mask last night however nursing staff report to me that she did not want to wear instructed off the patient's son is bedside and tells me that this was the first night the family did not stay with her while in the hospital the patient complains that her family was not with her while she was wearing the mask and that she did not want to wear it. She tries to provideas to why she didn't wear her BiPAP mask it however is a convoluted explanation OBJECTIVE PHYSICAL EXAMINATION: VITAL SIGNS: Please see below. GENERAL: Pleasant elderly sitting in chair does not appear to be in any acute distress she is however agitated accompanied by her son. HEENT: Cranial nerves nerves II through XII grossly intact she is wearing foam dressing over her nasal bridge CARDIOVASCULAR: S1-S2 she is tachycardic grade 3 systolic ejection murmur RESPIRATORY fairly good air movement throughout. ABDOMINAL: Bowel sounds present and soft and nontender EXTREMITIES: No clubbing cyanosis or edema LABORATORY DATA, IMAGING STUDIES, MICROBIOLOGY: Please see below. DVT prophylaxis ordered?: Heparin ASSESSMENT AND PLAN: This is a 73-year-old female with acute on chronic hypoxic/hypercarbic respiratory failure. 1. Acute on chronic hypoxic hypercapnic respiratory failure: Secondary to noncompliance regarding her obstructive sleep apnea pulmonary help is greatly appreciated. Once again despite her request to wear BiPAP and she will be strictly compliant moving forward she is shown noncompliance and missed continue supervision is supplied I did a lengthy conversation with the patient and the son that she is not able to maintain compliance regarding her sleep apnea even while hospitalized necessitated several trips to the intensive care unit in the recent past. I do have my doubts of her ability to maintain compliance at home she lives alone or potentially even a shelter facility which she has not demonstrated consistently here even in the hospital. Goals of care was at work again addressed I did recommend hospice to the patient and the son's previously recommended to the patient and her daughters it appears as though the patient does not wish to wear BiPAP at night while sleeping and she does not wish to wear this it is not unreasonable that she may in her sleep with both the patient and her son were made aware of this and given her recent history it is not altogether unlikely. The patient and family will discuss further get back to me regarding the goals of care she is oriented DNR/DNI but I cannot for see how she could continue to live in the medical intensive care unit should she be noncompliant again this evening 2. Shock:Suspected cardiac in origin. resolved 3. Diastolic congestive heart failure exacerbation: She did receive 2 units of PRBCs previously she has been restarted on her home Lasix she does not appear to be grossly volume overloaded. Continue to monitor volume status closely 4.chronic kidney disease: Cr stable close to baseline 5. Obstructive sleep apnea: History of noncompliance with CPAP. As outlined above 6. Hypertension: Was initially hypotensive however at this time her blood pressures are coming up I'll provide her with her home Lasix and restart her other home medications as needed 7. GI bleed:Gen Surg recs appreciated her hemoglobin continues to trend down after a transfusion likely a slow bleed possible small bowel in etiology recommendation was for capsule Endoscopy, Surgery Feels No Further Endoscopy Procedures Would Be Beneficial at This Time We'll Continue to Transfuse When Necessary Have Her Follow-Up with Gastroenterology Outpatient As Previously Scheduled for Capsule Endoscopy. Continue with PPI IV twice a day 8. Diabetes. Sliding scale. Consistent carbohydrate diet. With sodium and fluid restriction fingersticks well controlled 9. History of coronary artery disease. On aspirin, Lipitor and beta blockers will resume her Lipitor and beta ester continue to hold aspirin in the setting of bleeding 10. Depression. On Zoloft and Effexor. Disposition: Prognosis is poor secondary to noncompliance with BiPAP which she is a demonstrated need for with recurrent hypercapnia and ICU admissions. I have recommended hospice both the patient and her children she remains a DNR/DNI at this time VS, I&O, 24H, Fishbone Vital Signs/I&O Vital Signs Date Time Temp Pulse Resp B/P (MAP) Pulse Ox O2 Delivery O2 Flow Rate FiO2 07/25/18 09:25 3.0 07/25/18 08:02 83 156/77 07/25/18 06:00 97.8 20 94 07/24/18 22:42 Nasal Cannula 07/22/18 17:03 40 I&O- Last 24 Hours up to 6 AM 07/25/18 06:00 Intake Total 1525 ml Output Total 400 ml Balance 1125 ml Laboratory Data 24H LABS Laboratory Tests 2 07/24/18 16:21: Bedside Glucose (Misc Panel) 202H 07/24/18 20:40: Bedside Glucose (Misc Panel) 166H 07/25/18 05:04: Nucleated Red Blood Cells % (auto) 0.0, Anion Gap 0L, Glomerular Filtration Rate 32.5L, Blood Urea Nitrogen 29H, Creatinine 1.64H, Sodium Level 143, Potassium L evel 3.9, Chloride Level 97L, Carbon Dioxide Level 46H, Calcium Level 8.5L 07/25/18 11:23: Bedside Glucose (Misc Panel) 134H CBC/BMP Laboratory Tests 07/25/18 05:04 Red Blood Count 2.89 L, Mean Corpuscular Volume 99.0 H, Mean Corpuscular Hemoglobin 29.1, Mean Corpuscular Hemoglobin Concent 29.4 L, Red Cell Distribution Width 18.3 H, Calcium Level 8.5 L Microbiology Microbiology 07/16/18 Blood Culture - Final, Complete NO GROWTH AFTER 5 DAYS 07/16/18 Blood Culture - Final, Complete NO GROWTH AFTER 5 DAYS 07/22/18 Stool Occult Blood (ARVIND) - Final, Complete MARIANA QIU MD Jul 25, 2018 15:01
[2018-07-25 22:00] VITALS: BP 165/76
[2018-07-26] MEDS: SODIUM CHLORIDE 0.9% INJ 10 ML SYR IV SCH ×2 (05:28→17:53)
[2018-07-26 05:53] LABS: HEMATOCRIT 29.5 % (36.0-47.0); HEMOGLOBIN 8.5 g/dl (12.0-15.5); MEAN CORPUSCULAR HEMOGLOBIN 29.1 pg (27.0-33.0); MEAN CORPUSCULAR HGB CONC 28.8 g/dl (32.0-36.5); PLATELET COUNT, AUTOMATED 171 10^3/uL (150-450); RED BLOOD COUNT 2.92 10^6/uL (4.00-5.40); WHITE BLOOD COUNT 5.6 10^3/uL (4.0-10.0)
[2018-07-26 06:16] LABS: CALCIUM LEVEL 8.4 MG/DL (8.8-10.2); CREATININE FOR GFR 1.78 MG/DL (0.55-1.30); GLOMERULAR FILTRATION RATE 29.6 (>39)
[2018-07-26] MEDS: TIOTROPIUM INHALER/CAPSULE (SPIRIVA) INH SCH (07:51)
[2018-07-26] MEDS: ADVAIR HFA 230/21MCG INHALER INH SCH ×2 (07:52→21:06)
[2018-07-26] MEDS: PANTOPRAZOLE 40MG INJ (PROTONIX) (C9113) IV SCH ×2 (08:21→21:35)
[2018-07-26] MEDS: HumaLOG INSULIN (NovoLOG) PER UNIT SC SCH ×4 (08:21→21:00)
[2018-07-26] MEDS: FUROSEMIDE 80 MG TAB PO SCH (08:22)
[2018-07-26] MEDS: SERTRALINE 100 MG TAB PO SCH (08:22)
[2018-07-26] MEDS: METOPROLOL TART 50 MG TAB PO SCH ×2 (08:22→21:36)
[2018-07-26] MEDS: QUEtiapine FUMARATE 25 MG TAB PO SCH ×2 (08:22→21:35)
[2018-07-26] MEDS: VENLAFAXINE **XR** 75MG CAPSULE PO SCH (08:22)
[2018-07-26] MEDS: ATORVASTATIN 20 MG TAB PO SCH (08:22)
[2018-07-26] MEDS: SODIUM CHLORIDE 0.9% INJ 10 ML SYR IV PRN ×2 (08:23→21:35)
[2018-07-26 09:00] VITALS: O2SAT 97
--- NOTE | 2018-07-26 11:01 | IPNPDOC ---
Text Note Date of Service The patient was seen on 07/26/18. NOTE SUBJECTIVE: Patient alert , oriented and cooperative this morning. Used the CPAP overnight . Was calm and slept well. Patient will need use the CPAP during sleep at night and during naps during the day. She will not be able to manage by herself at home as she does not use the mask if not supervised and instructed. Her oxygen requirement that was bled through the CPAP had to be increased to 7 liters last night. OBJECTIVE PHYSICAL EXAMINATION: VITAL SIGNS: Please see below. GENERAL: Pleasant elderly sitting in chair does not appear to be in any acute distress she is however agitated accompanied by her son. HEENT: Cranial nerves nerves II through XII grossly intact she is wearing foam dressing over her nasal bridge CARDIOVASCULAR: S1-S2 she is tachycardic grade 3 systolic ejection murmur RESPIRATORY fairly good air movement throughout. ABDOMINAL: Bowel sounds present and soft and nontender EXTREMITIES: No clubbing cyanosis or edema LABORATORY DATA, IMAGING STUDIES, MICROBIOLOGY: Please see below. DVT prophylaxis ordered?: Heparin ASSESSMENT AND PLAN: This is a 73-year-old female with acute on chronic hypoxic/hypercarbic respiratory failure. Acute on chronic Respiratory failure with hypoxia and hypercapnia. Secondary to noncompliance regarding her use of BIPAP at home. Patient will need fdc NH placement ensuring compliance with BIPAP. 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 Discussion regarding has been started with son. Other family members will be arriving here soon to discuss about this option. End stage COPD with Moderate pulmonary hypertension with chronic hypoxic and hypercarbic respiratory failure: continue BIPAP, oxygen supplementation, lasix. nebs and advair, spiriva. Shock:Suspected cardiac in origin. resolved Diastolic congestive heart failure exacerbation: She did receive 2 units of PRBCs previously she has been restarted on her home Lasix she does not appear to be grossly volume overloaded. Continue to monitor volume status closely Chronic kidney disease: Cr stable close to baseline Obstructive sleep apnea: History of noncompliance with BIPAP. As outlined above Hypertension: Was initially hypotensive however at this time her Bp has improved. Valvular Heart disease: Mild mitral stenosis and mild aortic stenosis. history of rheumatic fever in the remote past H/O Colon cancer s/p resection in the past. GI bleed:Gen Surg recs appreciated her hemoglobin continues to trend down after a transfusion likely a slow bleed possible small bowel in etiology recom mendation was for capsule Endoscopy, Surgery Feels No Further Endoscopy Procedures Would Be Beneficial at This Time We'll Continue to Transfuse When Necessary Have Her Follow-Up with Gastroenterology Outpatient As Previously Scheduled for Capsule Endoscopy. Continue with PPI IV twice a day Diabetes. Sliding scale. Consistent carbohydrate diet. With sodium and fluid restriction fingersticks well controlled. restart home meds on discharge History of coronary artery disease. On aspirin, Lipitor and beta blockers will resume her Lipitor and beta ester continue to hold aspirin in the setting of bleeding Depression/ anxiety: On Zoloft and Effexor. Disposition: Prognosis is poor secondary to noncompliance with BiPAP which she is a demonstrated with recurrent hypercapnia and ICU admissions. discussion about Hospice and LANDSCAPE CONTRACTOR status have been started with both the patient and her children she remains a DNR/DNI at this time. At the least She will need fdc NH placement. VS,Fishbone, I+O VS, Fishbone, I+O Laboratory Tests 07/26/18 05:39 Red Blood Count 2.92 L, Mean Corpuscular Volume 101.0 H, Mean Corpuscular Hemoglobin 29.1, Mean Corpuscular Hemoglobin Concent 28.8 L, Red Cell Distribution Width 18.3 H, Calcium Level 8.4 L Vital Signs Date Time Temp Pulse Resp B/P (MAP) Pulse Ox O2 Delivery O2 Flow Rate FiO2 07/26/18 08:22 67 145/67 07/26/18 06:00 98.2 22 92 07/25/18 23:00 7.0 07/24/18 22:42 Nasal Cannula 07/22/18 17:03 40 I&O- Last 24 Hours up to 6 AM 07/26/18 06:00 Intake Total 120 ml Output Total 0 ml Balance 120 ml CHARISSE JHA MD Jul 26, 2018 11:01
[2018-07-26 22:00] VITALS: BP 145/67
[2018-07-27] MEDS: SODIUM CHLORIDE 0.9% INJ 10 ML SYR IV SCH ×2 (05:44→16:57)
[2018-07-27 06:00] VITALS: BP 143/65
[2018-07-27 06:14] LABS: HEMATOCRIT 27.7 % (36.0-47.0); HEMOGLOBIN 8.3 g/dl (12.0-15.5); MEAN CORPUSCULAR HEMOGLOBIN 30.1 pg (27.0-33.0); MEAN CORPUSCULAR VOLUME 100.4 fl (80.0-96.0); PLATELET COUNT, AUTOMATED 194 10^3/uL (150-450); RED BLOOD COUNT 2.76 10^6/uL (4.00-5.40); WHITE BLOOD COUNT 5.3 10^3/uL (4.0-10.0)
[2018-07-27 06:42] LABS: CALCIUM LEVEL 8.2 MG/DL (8.8-10.2); CREATININE FOR GFR 1.94 MG/DL (0.55-1.30); GLOMERULAR FILTRATION RATE 26.8 (>39); POTASSIUM SERUM 3.8 MEQ/L (3.5-5.1)
[2018-07-27] MEDS: TIOTROPIUM INHALER/CAPSULE (SPIRIVA) INH SCH (08:25)
[2018-07-27] MEDS: ADVAIR HFA 230/21MCG INHALER INH SCH ×2 (08:26→21:19)
[2018-07-27] MEDS: PANTOPRAZOLE 40MG INJ (PROTONIX) (C9113) IV SCH (08:32)
[2018-07-27] MEDS: HumaLOG INSULIN (NovoLOG) PER UNIT SC SCH ×4 (08:33→21:46)
[2018-07-27] MEDS: QUEtiapine FUMARATE 25 MG TAB PO SCH ×2 (08:34→21:46)
[2018-07-27] MEDS: FUROSEMIDE 80 MG TAB PO SCH (08:34)
[2018-07-27] MEDS: METOPROLOL TART 50 MG TAB PO SCH ×2 (08:34→21:46)
[2018-07-27] MEDS: VENLAFAXINE **XR** 75MG CAPSULE PO SCH (08:34)
[2018-07-27] MEDS: ATORVASTATIN 20 MG TAB PO SCH (08:34)
[2018-07-27] MEDS: SERTRALINE 100 MG TAB PO SCH (08:34)
[2018-07-27 09:00] VITALS: O2SAT 94
--- NOTE | 2018-07-27 10:24 | IPNPDOC ---
Text Note Date of Service The patient was seen on 07/27/18. NOTE SUBJECTIVE: Patient alert , oriented and cooperative this morning. Used the CPAP overnight . She is able to sit up by herself at the side of the bed, ate breakfast by herself sitting up by the side of the bded. She is using about 4.5 liters of oxygen now. Hat home uses about 3.5 liters. It seems she is doing well in a supervised setting. No fever or chills. OBJECTIVE PHYSICAL EXAMINATION: VITAL SIGNS: Please see below. GENERAL: Pleasant elderly sitting in chair does not appear to be in any acute distress she is however agitated accompanied by her son. HEENT: Cranial nerves nerves II through XII grossly intact she is wearing foam dressing over her nasal bridge CARDIOVASCULAR: S1-S2 she is tachycardic grade 3 systolic ejection murmur RESPIRATORY fairly good air movement throughout. ABDOMINAL: Bowel sounds present and soft and nontender EXTREMITIES: No clubbing cyanosis or edema LABORATORY DATA, IMAGING STUDIES, MICROBIOLOGY: Please see below. DVT prophylaxis ordered?: Heparin ASSESSMENT AND PLAN: This is a 73-year-old female with acute on chronic hypoxic/hypercarbic respiratory failure. Acute on chronic Respiratory failure with hypoxia and hypercapnia. Secondary to noncompliance regarding her use of BIPAP at home. Patient will need terminal supervisor NH placement ensuring compliance with BIPAP. if patient continues to refuse to use BIPAP then she should be made [employer]. Discussion regarding has been started with son. Other family members will be arriving here soon to discuss about this option. End stage COPD with Moderate pulmonary hypertension with chronic hypoxic and hypercarbic respiratory failure: continue BIPAP, oxygen supplementation, lasix. nebs and advair, spiriva. Shock:Suspected cardiac in origin. resolved Diastolic congestive heart failure exacerbation: She did receive 2 units of PRBCs previously she has been restarted on her home Lasix she does not appear to be grossly volume overloaded. Continue to monitor volume status closely Chronic kidney disease: Cr stable close to baseline Obstructive sleep apnea: History of noncompliance with BIPAP. As outlined above Hypertension: Was initially hypotensive however at this time her Bp has improved. Valvular Heart disease: Mild mitral stenosis and mild aortic stenosis. history of rheumatic fever in the remote past H/O Colon cancer s/p resection in the past. GI bleed:Gen Surg recs appreciated her hemoglobin continues to trend down after a transfusion likely a slow bleed possible small bowel in etiology recommendation was for capsule Endoscopy, Surgery Feels No Further Endoscopy Procedures Would Be Beneficial at This Time We'll Continue to Transfuse When Necessary Have Her Follow-Up with Gastroenterology Outpatient As Previously Scheduled for Capsule Endoscopy. Continue with PPI IV twice a day Diabetes. Sliding scale. Consistent carbohydrate diet. With sodium and fluid restriction fingersticks well controlled. restart home meds on discharge History of coronary artery disease. On aspirin, Lipitor and beta blockers will resume her Lipitor and beta ester continue to hold aspirin in the setting of bleeding Depression/ anxiety: On Zoloft and Effexor. Disposition: will need fci placement for continued supervision regarding compliance with BIPAP vs 24x7 supervision at home. A-FIB/CHADSVASC A-FIB History Current/History of A-Fib/PAF?: No VS,Fishbone, I+O VS, Fishbone, I+O Laboratory Tests 07/27/18 05:52 Red Blood Count 2.76 L, Mean Corpuscular Volume 100.4 H, Mean Corpuscular Hemoglobin 30.1, Mean Corpuscular Hemoglobin Concent 30.0 L, Red Cell Distribution Width 18.0 H, Calcium Level 8.2 L Vital Signs Date Time Temp Pulse Resp B/P (MAP) Pulse Ox O2 Delivery O2 Flow Rate FiO2 07/27/18 08:34 80 145/70 07/27/18 06:00 98.3 18 98 4.0 07/26/18 09:00 Nasal Cannula 07/22/18 17:03 40 I&O- Last 24 Hours up to 6 AM 07/27/18 06:00 Intake Total 950 ml Output Total 300 ml Balance 650 ml CHARISSE JHA MD Jul 27, 2018 10:24
[2018-07-27 14:00] VITALS: BP 140/61
[2018-07-27] MEDS: PANTOPRAZOLE 40MG TAB (PROTONIX) PO SCH (21:46)
[2018-07-27 22:00] VITALS: BP 145/66
[2018-07-28] MEDS: SODIUM CHLORIDE 0.9% INJ 10 ML SYR IV SCH (05:09)
[2018-07-28 06:00] VITALS: BP 119/56
[2018-07-28 06:30] LABS: HEMATOCRIT 26.5 % (36.0-47.0); HEMOGLOBIN 8.1 g/dl (12.0-15.5); MEAN CORPUSCULAR HEMOGLOBIN 30.3 pg (27.0-33.0); MEAN CORPUSCULAR HGB CONC 30.6 g/dl (32.0-36.5); MEAN CORPUSCULAR VOLUME 99.3 fl (80.0-96.0); PLATELET COUNT, AUTOMATED 200 10^3/uL (150-450); RED BLOOD COUNT 2.67 10^6/uL (4.00-5.40); WHITE BLOOD COUNT 5.7 10^3/uL (4.0-10.0)
[2018-07-28 06:57] LABS: CALCIUM LEVEL 8.4 MG/DL (8.8-10.2); CREATININE FOR GFR 1.97 MG/DL (0.55-1.30); GLOMERULAR FILTRATION RATE 26.3 (>39); POTASSIUM SERUM 3.7 MEQ/L (3.5-5.1)
[2018-07-28] MEDS: TIOTROPIUM INHALER/CAPSULE (SPIRIVA) INH SCH (07:26)
[2018-07-28] MEDS: ADVAIR HFA 230/21MCG INHALER INH SCH ×2 (07:26→21:42)
[2018-07-28] MEDS: PANTOPRAZOLE 40MG TAB (PROTONIX) PO SCH ×2 (08:40→22:05)
[2018-07-28] MEDS: HumaLOG INSULIN (NovoLOG) PER UNIT SC SCH ×4 (08:40→21:00)
[2018-07-28] MEDS: VENLAFAXINE **XR** 75MG CAPSULE PO SCH (08:40)
[2018-07-28] MEDS: SERTRALINE 100 MG TAB PO SCH (08:40)
[2018-07-28] MEDS: QUEtiapine FUMARATE 25 MG TAB PO SCH ×2 (08:41→22:05)
[2018-07-28] MEDS: FUROSEMIDE 80 MG TAB PO SCH (08:41)
[2018-07-28] MEDS: METOPROLOL TART 50 MG TAB PO SCH ×2 (08:41→22:04)
[2018-07-28] MEDS: ATORVASTATIN 20 MG TAB PO SCH (08:41)
--- NOTE | 2018-07-28 13:18 | IPNPDOC ---
Text Note Date of Service The patient was seen on 07/28/18. NOTE SUBJECTIVE: Patient alert , oriented and cooperative this morning. Used the t able top overnight. She is using about 4.5 liters of oxygen now. It seems she is doing well in a supervised setting. No fever or chills. Asked son to bring her own machine. OBJECTIVE PHYSICAL EXAMINATION: VITAL SIGNS: Please see below. GENERAL: Pleasant elderly sitting in chair does not appear to be in any acute distress , alert oriented and cooperative. NECk: Supple , no JVD HEENT: Cranial nerves nerves II through XII grossly intact she is wearing foam dressing over her nasal bridge CARDIOVASCULAR: S1-S2 she is tachycardic grade 3 systolic ejection murmur, no rub or gallop. RESPIRATORY Diffuse crackles bilateral , More coarse breath sounds on the right. ABDOMINAL: Bowel sounds present and soft and nontender EXTREMITIES: No clubbing cyanosis or edema LABORATORY DATA, IMAGING STUDIES, MICROBIOLOGY: Please see below. DVT prophylaxis ordered?: Heparin ASSESSMENT AND PLAN: This is a 73-year-old female with acute on chronic hypoxic/hypercarbic respiratory failure. Acute on chronic Respiratory failure with hypoxia and hypercapnia. Secondary to noncompliance regarding her use of BIPAP at home. Patient will need half-way NH placement ensuring compliance with BIPAP. 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 Discussion regarding has been started with son. Other family members will be arriving here soon to discuss about this option. End stage COPD with Moderate pulmonary hypertension with chronic hypoxic and hypercarbic respiratory failure: continue table top currently on 16/11, oxygen supplementation, lasix. nebs and advair, spiriva. Shock:Suspected cardiac in origin. resolved Diastolic congestive heart failure exacerbation: She did receive 2 units of PRBCs previously she has been restarted on her home Lasix she does not appear to be grossly volume overloaded. Continue to monitor volume status closely Chronic kidney disease: Cr stable close to baseline Obstructive sleep apnea: History of noncompliance with BIPAP. As outlined above Hypertension: Was initially hypotensive however at this time her Bp has improved. Valvular Heart disease: Mild mitral stenosis and mild aortic stenosis. history of rheumatic fever in the remote past H/O Colon cancer s/p resection in the past. GI bleed:Gen Surg recs appreciated her hemoglobin continues to trend down after a transfusion likely a slow bleed possible small bowel in etiology recommendation was for capsule Endoscopy, Surgery Feels No Further Endoscopy Procedures Would Be Beneficial at This Time We'll Continue to Transfuse When Necessary Have Her Follow-Up with Gastroenterology Outpatient As Previously Scheduled for Capsule Endoscopy. Continue with PPI IV twice a day Diabetes. Sliding scale. Consistent carbohydrate diet. With sodium and fluid restriction fingersticks well controlled. restart home meds on discharge History of coronary artery disease. On aspirin, Lipitor and beta blockers will resume her Lipitor and beta ester continue to hold aspirin in the setting of bleeding Depression/ anxiety: On Zoloft and Effexor. Disposition: will need termite helper placement for continued supervision regarding compliance with BIPAP vs 24x7 supervision at home. VS,Fishbone, I+O VS, Fishbone, I+O Laboratory Tests 07/28/18 05:32 Red Blood Count 2.67 L, Mean Corpuscular Volume 99.3 H, Mean Corpuscular Hemo globin 30.3, Mean Corpuscular Hemoglobin Concent 30.6 L, Red Cell Distribution Width 17.8 H, Calcium Level 8.4 L Vital Signs Date Time Temp Pulse Resp B/P (MAP) Pulse Ox O2 Delivery O2 Flow Rate FiO2 07/28/18 09:00 4.5 07/28/18 08:41 71 121/62 07/28/18 06:00 98.6 18 90 07/27/18 09:00 Nasal Cannula 07/22/18 17:03 40 I&O- Last 24 Hours up to 6 AM 07/28/18 06:00 Intake Total 760 ml Output Total 550 ml Balance 210 ml CHARISSE JHA MD Jul 28, 2018 13:18
[2018-07-28 14:00] VITALS: BP 122/58
[2018-07-28 22:00] VITALS: BP 133/60
[2018-07-29 02:00] VITALS: O2SAT 96
[2018-07-29 06:00] VITALS: BP 140/62
[2018-07-29 06:00] LABS: HEMATOCRIT 28.8 % (36.0-47.0); HEMOGLOBIN 8.5 g/dl (12.0-15.5); MEAN CORPUSCULAR HEMOGLOBIN 29.6 pg (27.0-33.0); MEAN CORPUSCULAR HGB CONC 29.5 g/dl (32.0-36.5); MEAN CORPUSCULAR VOLUME 100.3 fl (80.0-96.0); PLATELET COUNT, AUTOMATED 232 10^3/uL (150-450); RED BLOOD COUNT 2.87 10^6/uL (4.00-5.40); WHITE BLOOD COUNT 5.8 10^3/uL (4.0-10.0)
[2018-07-29 06:15] LABS: CALCIUM LEVEL 8.6 MG/DL (8.8-10.2); CREATININE FOR GFR 1.81 MG/DL (0.55-1.30); POTASSIUM SERUM 4.2 MEQ/L (3.5-5.1)
[2018-07-29] MEDS: ADVAIR HFA 230/21MCG INHALER INH SCH (07:38)
[2018-07-29] MEDS: TIOTROPIUM INHALER/CAPSULE (SPIRIVA) INH SCH (07:38)
[2018-07-29] MEDS: ATORVASTATIN 20 MG TAB PO SCH (08:36)
[2018-07-29] MEDS: VENLAFAXINE **XR** 75MG CAPSULE PO SCH (08:36)
[2018-07-29] MEDS: HumaLOG INSULIN (NovoLOG) PER UNIT SC SCH ×2 (08:36→12:11)
[2018-07-29] MEDS: SERTRALINE 100 MG TAB PO SCH (08:37)
[2018-07-29] MEDS: FUROSEMIDE 80 MG TAB PO SCH (08:37)
[2018-07-29] MEDS: QUEtiapine FUMARATE 25 MG TAB PO SCH (08:37)
[2018-07-29] MEDS: PANTOPRAZOLE 40MG TAB (PROTONIX) PO SCH (08:37)
[2018-07-29 08:38] VITALS: BP 140/60
[2018-07-29] MEDS: METOPROLOL TART 50 MG TAB PO SCH (08:38)
[2018-07-29 09:00] VITALS: O2SAT 94
[2018-07-29] MEDS ORDERED: HYOS125TA PO (10:57)
[2018-07-29] MEDS ORDERED: MORP20SO3 PO (10:57)
[2018-07-29] MEDS ORDERED: IPRA0.00 NEB (10:57)
[2018-07-29] MEDS ORDERED: LORA0.5T11 PO (10:57)
--- NOTE | 2018-07-29 14:00 | DS.PDOC ---
Discharge Summary General Date of Admission Jul 16, 2018 at 12:47 Discharge Summary PROCEDURES PERFORMED DURING STAY: [None]. DISCHARGE DIAGNOSES: Acute on chronic respiratory failure with hypoxia and hypercarbia End Stage COPD LINDSAY on CPAP Pulmonary hypertension Diastolic CHF exacerbation Shock on presentation thought to be cardiogenic Anemia with h/o recent GIB CKD stage 3 Diabetes Anxiety and depression Coronary artery disease Valvular heart disease. H/o colon cancer s/p resection in the past. COMPLICATIONS/CHIEF COMPLAINT: Acute On Chronic Respiratory Failure W/ Hypoxia &. HISTORY OF PRESENT ILLNESS: See history and physical HOSPITAL COURSE: GENERAL: This is a 73-year-old female admitted with acute on chronic hypoxic/hypercarbic respiratory failure due to noncompliance with her CPAP in the presence of End stage COPD and LINDSAY and pulmonary hypertension. Patient has a patter or recurrent admissions due to noncompliance issues. During this hospitalization patient needed constant reminders and supervision to use her BIPAP otherwise she would not use it. As per family she lives alone and often does not use it. It was explained that she would need to use it daily during any sleep and naps. Patient often did not want to use it. SO advance directives were addressed and HCP and patient wanted to be DNR, DNI and kept comfortable. Hospice was consulted and was accepted in hospice house. Acute on chronic Respiratory failure with hypoxia and hypercapnia. Secondary to noncompliance regarding her use of CPAP at home. Patient needs lots of encouragement to make her use the CPAP. End stage COPD with Moderate pulmonary hypertension with chronic hypoxic and hypercarbic respiratory failure: continue table top currently on 16/11, oxygen supplementation, lasix. nebs and advair, spiriva. Will change to home CPAP with pressure support of 8.0 Shock:Suspected cardiac in origin. resolved Diastolic congestive heart failure exacerbation: She did receive 2 units of PRBCs previously she has been restarted on her home Lasix she does not appear to be grossly volume overloaded at present Chronic kidney disease: Cr stable close to baseline Obstructive sleep apnea: History of noncompliance with BIPAP. As outlined above Hypertension: Was initially hypotensive however at this time her Bp has improved. restarted metoprolol and amlodipine. Valvular Heart disease: Mild mitral stenosis and mild aortic stenosis. history of rheumatic fever in the remote past H/O Colon cancer s/p resection in the past. GI bleed: recently no etiology found may be small bowel in source. will stop ASA. Diabetes. Restart januvia. History of coronary artery disease. Continue beta blockers. ASA stopped due to recent GIB. Stain stoppedpateint going to hospice. Depression/ anxiety: On Zoloft and Effexor. DISCHARGE MEDICATIONS: Please see below. ALLERGIES: Please see below. PHYSICAL EXAMINATION ON DISCHARGE: VITAL SIGNS: Please see below. GENERAL: Pleasant elderly sitting in chair does not appear to be in any acute distress , alert oriented and cooperative. NECK: Supple , no JVD HEENT: Cranial nerves nerves II through XII grossly intact she is wearing foam dressing over her nasal bridge CARDIOVASCULAR: S1-S2 she is tachycardic grade 3 systolic ejection murmur, no rub or gallop. RESPIRATORY Diffuse crackles bilateral , More coarse breath sounds on the right. ABDOMINAL: Bowel sounds present and soft and nontender EXTREMITIES: No clubbing cyanosis or edema LABORATORY DATA: Please see below. ACTIVITY: [As tolerated]. DIET: As tolerate DISPOSITION: [facility]ospice Home. DISCHARGE INSTRUCTIONS: None DISCHARGE CONDITION: [Stable]. TIME SPENT ON DISCHARGE: Greater than 30minutes. Vital Signs/I&Os Vital Signs Date Time Temp Pulse Resp B/P (MAP) Pulse Ox O2 Delivery O2 Flow Rate FiO2 07/29/18 09:00 4.5 07/29/18 09:00 94 07/29/18 08:38 80 140/60 07/29/18 06:00 97.4 20 07/29/18 02:00 BIPAP/CPAP I&O- Last 24 Hours up to 6 AM 07/29/18 06:00 Intake Total 710 ml Output Total 100 ml Balance 610 ml Laboratory Data Labs 24H Laboratory Tests 2 07/28/18 17:56: Bedside Glucose (Misc Panel) 157H 07/28/18 21:31: Bedside Glucose (Misc Panel) 185H 07/29/18 05:20: Nucleated Red Blood Cells % (auto) 0.0, Anion Gap 1L, Glomerular Filtration Rate 29.0L, Blood Urea Nitrogen 33H, Creatinine 1.81H, Sodium Level 141, Potassium Level 4.2, Chloride Level 99, Carbon Dioxide Level 41H, Calcium Level 8.6L 07/29/18 11:40: Bedside Glucose (Misc Panel) 179H CBC/BMP Laboratory Tests 07/29/18 05:20 Red Blood Count 2.87 L, Mean Corpuscular Volume 100.3 H, Mean Corpuscular Hemoglobin 29.6, Mean Corpuscular Hemoglobin Concent 29.5 L, Red Cell Distribution Width 17.8 H, Calcium Level 8.6 L FSBS Laboratory Tests Test 07/28/18 17:56 07/28/18 21:31 07/29/18 11:40 Range/Units Bedside Glucose (Misc Panel) 157 185 179 83-110 MG/DL Microbiology Microbiology 07/28/18 Stool Occult Blood (ARVIND) - Final, Complete 07/22/18 Stool Occult Blood (ARVIND) - Final, Complete Discharge Medications Scheduled Amlodipine Besylate (Amlodipine Besylate) 5 Mg Tablet, 5 MG PO DAILY, (Reported) Ferrous Sulfate (Ferrous Sulfate) 325 Mg Tab, 162.5 MG PO DAILY, (Reported) Fluticasone Propion/Salmeterol (Advair Hfa 230-21 Mcg Inhaler) 1 Aer Aer, 2 PUFF INH BID, (Reported) Furosemide (Lasix) 80 Mg Tab, 80 MG PO DAILY, (Reported) Metoprolol Tartrate (Metoprolol Tartrate) 50 Mg Tab, 50 MG PO BID, (Reported) Pantoprazole Sodium (Pantoprazole Sodium) 40 Mg Tablet.dr, 40 MG PO BID, (Reported) Quetiapine Fumarate (Quetiapine Fumarate) 25 Mg Tablet, 25 MG PO BID, (Reported) Sertraline HCl (Sertraline HCl) 100 Mg Tab, 100 MG PO DAILY, (Reported) Sitagliptin Phosphate (Januvia) 25 Mg Tab, 25 MG PO DAILY, (Reported) Tiotropium Dalton (Spiriva) 18 Mcg Cap, 1 INHALATION INH DAILY, (Reported) Venlafaxine HCl (Venlafaxine HCl ER) 75 Mg Capcr, 75 MG PO DAILY, (Reported) Scheduled PRN Acetaminophen (Tylenol Arthritis) 650 Mg Tab, 650 MG PO Q8H PRN for PAIN, (Reported) Hyoscyamine Sulfate (Hyoscyamine Sulfate) 0.125 Mg Tab.subl, 0.125 MG PO Q4HP P RN for TERMINAL SECRETIONS Use sublingually if unable to swallow Ipratropium/Albuterol Sulfate (Iprat-Albut 0.5-3(2.5) mg/3 ml) 3 Ml Ampul.neb, 3 ML NEB Q4HP PRN for SOB/WHEEZING Lorazepam (Lorazepam) 0.5 Mg Tablet, 0.5 MG PO Q4HP PRN for ANXIETY/AGITATION Use sublingually if unable to swallow Morphine Sulfate (Morphine Sulfate) 100 Mg/5 Ml Solution, 0.25-1 ML PO Q2H PRN for PAIN OR DYSPNEA Use sublingually if unable to swallow Allergies Coded Allergies: Penicillins (Unverified Allergy, Unknown, SWELLING, 07/08/18) erythromycin base (Unverified Allergy, Unknown, RASH, 07/16/18) metformin (Unverified Allergy, Unknown, UNKNOWN REACTION, 07/16/18) CHARISSE JHA MD Jul 29, 2018 14:00
== END 2018-07-29 13:31 | disposition hospice, inpatient (51) | DRG 291 ==
LOC: M ED 09:33 → M ED INP 12:47 → M ICU 15:00 → M MSPAV 07-24 11:56
PROVIDERS: ADMIT Internal Medicine; ATTEND Internal Medicine Nephrology
PROC: 02HV33Z Insertion of Infusion Device into Superior Vena Cava, Percutaneous Approach (ICD-10-PCS; principal; 2018-07-16)
PROC: 30233N1 Transfusion of Nonautologous Red Blood Cells into Peripheral Vein, Percutaneous Approach (ICD-10-PCS; 2018-07-22)
DX: I13.0 Hypertensive heart and chronic kidney disease with heart failure and stage 1 through stage 4 chronic kidney disease, or unspecified chronic kidney disease (principal); I50.33 Acute on chronic diastolic (congestive) heart failure; R57.0 Cardiogenic shock; J96.21 Acute and chronic respiratory failure with hypoxia; J96.22 Acute and chronic respiratory failure with hypercapnia; E87.2 Acidosis; K92.2 Gastrointestinal hemorrhage, unspecified; G47.33 Obstructive sleep apnea (adult) (pediatric); I25.10 Atherosclerotic heart disease of native coronary artery without angina pectoris; J44.9 Chronic obstructive pulmonary disease, unspecified; Z66 Do not resuscitate; E78.5 Hyperlipidemia, unspecified; D64.9 Anemia, unspecified; I27.20 Pulmonary hypertension, unspecified; F32.9 Major depressive disorder, single episode, unspecified; N18.3 Chronic kidney disease, stage 3 (moderate); E11.22 Type 2 diabetes mellitus with diabetic chronic kidney disease; Z85.038 Personal history of other malignant neoplasm of large intestine; Z90.49 Acquired absence of other specified parts of digestive tract; Z98.41 Cataract extraction status, right eye; Z98.42 Cataract extraction status, left eye; Z88.0 Allergy status to penicillin; Z88.1 Allergy status to other antibiotic agents; Z88.8 Allergy status to other drugs, medicaments and biological substances; Z79.82 Long term (current) use of aspirin; Z79.899 Other long term (current) drug therapy; Z87.891 Personal history of nicotine dependence; Z99.81 Dependence on supplemental oxygen; Z86.11 Personal history of tuberculosis; Z91.19 Patient's noncompliance with other medical treatment and regimen